=== PATIENT | male | born 1940 | race African-American/Black ===

== ENCOUNTER 2020-02-28 14:04 | Inpatient (IN) | payer MEDICARE, MEDICAID ==
[~2020-02-28] VITALS: Ht 172.7 cm; Wt 68.1 kg
[2020-02-28 14:10] VITALS: BP 110/60
--- NOTE | 2020-02-28 14:10 | NUR ---
ED Nurse Note: pt brought in by ambulance from [facility] due to failure to thrive, decreased PO intake, and general weakness. pt is alert x1.
[2020-02-28] MEDS ORDERED: VANCOMYCIN500 MG/100 IV (14:15)
[2020-02-28] MEDS ORDERED: MILK OF MA400 MG/51 ORAL (14:15)
[2020-02-28] MEDS ORDERED: FLEET ENEMA133 ML RECTAL (14:15)
[2020-02-28] MEDS ORDERED: BISACODYL5 MG RECTAL (14:15)
--- NOTE | 2020-02-28 14:39 | Emergency Room Report ---
History of Present Illness General Chief Complaint: Generalized Weakness Source: Patient, Medical Record Present Illness HPI Disclaimer: Please note that this report is being documented using [employer] technology. This can lead to erroneous entry secondary to incorrect interpretation by the dictating instrument. HPI: 79-year-old male history of hypertension, pneumonia, UTI presented from residential facility due to generalized weakness and failure to thrive. Per patient's primary care doctor patient has not been eating well and been declining over the past week. He did have coronavirus testing on February 17 which was negative. He denies any pain nausea vomiting or diarrhea but does report poor appetite. 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 PMH: Hypertension, pneumonia, UTI PSH: Reviewed Social Hx: Currently lives in a residential facility. Allergies: Coded Allergies: No Known Allergies (Unverified , 02/28/20) COVID-19 Screening Contact w/high risk pt: No Recent Travel to affected area: No Experienced COVID-19 symptoms?: No Nursing Documentation-PMH Past Medical History: No History, Except For Hx Cardiac Problems: Yes - Sepsis, PNA, UTI, ESBL Hx Hypertension: Yes Review of Systems All Other Systems: negative except mentioned in HPI Physical Exam Vital Signs Date Time Temp Pulse Resp B/P (MAP) Pulse Ox O2 Delivery O2 Flow Rate FiO2 02/28/20 14:00 98.6 95 18 103/55 (71) 92 Room Air Sp02 EP Interpretation: reviewed, other - Low normal General Appearance: no apparent distress, thin Head: normocephalic, atraumatic Eyes: bilateral eye PERRL, bilateral eye EOMI ENT: hearing grossly normal, moist mucus membranes Neck: full range of motion, supple Respiratory: lungs clear, normal breath sounds, no rhonchi, no respiratory distress, no retraction, no wheezing Cardiovascular #1: normal peripheral pulses, regular rate, rhythm, no murmur Gastrointestinal: non tender, soft, non-distended, no guarding Musculoskeletal: other - Bilateral lower extremities contracted. Wound noted to first toe of right foot Neurologic: alert, oriented x3, no focal defects Skin: normal color, warm/dry Medical Decision Making Diagnostic Impression: Primary Impression: Right lower lobe pneumonia Additional Impressions: UTI (urinary tract infection) Failure to thrive ER Course MDM: 79-year-old male history of MRSA endocarditis pneumonia and UTI presented with generalized weakness and poor p.o. intake. differential diagnosis: Recurrent pneumonia UTI bacteremia dehydration failure to thrive Clinical course Patient placed on stretcher. 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 After initial history and physical I ordered labs, chest x-ray. Chest x-ray did demonstrate evidence of right lower lobe pneumonia. Laboratory studies showed mild leukocytosis. Urinalysis with WBCs and bacteria. Broad-spectrum antibiotics were given. I discussed the case with Dr. Chu, patient's primary doctor who will admit patient to the hospital. Labs -mild leukocytosis, urinalysis consistent with UTI On reevaluation: Patient remained in no acute distress but generally weak Laboratory Tests Test 02/28/20 14:40 02/28/20 14:49 Urine Color Pale yellow Urine Appearance Slightly cloudy Urine pH 5 (4.5-8.0) Urine Specific [place] 1.015 (1.005-1.035) Urine Protein 1+ (NEGATIVE) H Urine Glucose (UA) Negative (NEGATIVE) Urine Ketones 1+ (NEGATIVE) H Urine Blood 2+ (NEGATIVE) H Urine Nitrite Negative (NEGATIVE) Urine Bilirubin Negative (NEGATIVE) Urine Urobilinogen Normal MG/DL (0.0-1.0) Urine Leukocyte Esterase 2+ (NEGATIVE) H Urine RBC 2-4 /HPF (0 - 0) H Urine WBC 10-15 /HPF (0 - 0) H Urine Squamous Epithelial Cells Few /LPF (NONE/OCC) Urine Bacteria Many /HPF (NONE) H White Blood Count 12.9 K/UL (4.8-10.8) H Red Blood Count 3.46 M/UL (4.70-6.10) L Hemoglobin 7.3 G/DL (14.2-18.0) L Hematocrit 23.9 % (42.0-52.0) L Mean Corpuscular Volume 69 FL (80-99) L Mean Corpuscular Hemoglobin 21.2 PG (27.0-31.0) L Mean Corpuscular Hemoglobin Concent 30.6 G/DL (32.0-36.0) L Red Cell Distribution Width 19.3 % (11.6-14.8) H Platelet Count 215 K/UL (150-450) Mean Platelet Volume 5.2 FL (6.5-10.1) L Neutrophils (%) (Auto) % (45.0-75.0) Lymphocytes (%) (Auto) % (20.0-45.0) Monocytes (%) (Auto) % (1.0-10.0) Eosinophils (%) (Auto) % (0.0-3.0) Basophils (%) (Auto) % (0.0-2.0) Differential Total Cells Counted 100 Neutrophils % (Manual) 86 % (45-75) H Lymphocytes % (Manual) 8 % (20-45) L Monocytes % (Manual) 6 % (1-10) Eosinophils % (Manual) 0 % (0-3) Basophils % (Manual) 0 % (0-2) Band Neutrophils 0 % (0-8) Platelet Estimate Adequate Platelet Morphology Normal Polychromasia 1+ Hypochromasia 2+ Anisocytosis 2+ Microcytosis 3+ Sodium Level 139 MMOL/L (136-145) Potassium Level 4.6 MMOL/L (3.5-5.1) Chloride Level 106 MMOL/L (98-107) Carbon Dioxide Level 23 MMOL/L (21-32) Anion Gap 11 mmol/L (5-15) Blood Urea Nitrogen 29 mg/dL (7-18) H Creatinine 1.4 MG/DL (0.55-1.30) H Estimated Glomerular Filtration Rate 59.1 mL/min (>60) Glucose Level 65 MG/DL (74-106) L Lactic Acid Level 0.60 mmol/L (0.4-2.0) Calcium Level 9.2 MG/DL (8.5-10.1) Total Bilirubin 0.5 MG/DL (0.2-1.0) Aspartate Amino Transferase (AST) 16 U/L (15-37) Alanine Aminotransferase (ALT) 10 U/L (12-78) L Alkaline Phosphatase 52 U/L (46-116) Total Creatine Kinase 35 U/L (26-308) Creatine Kinase MB 1.1 NG/ML (0.0-3.6) Creatine Kinase MB Relative Index 3.1 Troponin I 0.000 ng/mL (0.000-0.056) Total Protein 6.6 G/DL (6.4-8.2) Albumin 1.9 G/DL (3.4-5.0) L Globulin 4.7 g/dL Albumin/Globulin Ratio 0.4 (1.0-2.7) L EKG Diagnostic Results EP Interpretation: yes Rate: normal Rhythm: NSR ST Segments: no acute changes Other Impression Left axis deviation, right bundle branch block, first-degree AV block, abnormal EKG Chest X-Ray Diagnostic Results Chest X-Ray Diagnostic Results : Chest X-Ray Ordered: Yes # of Views/Limited/Complete: 1 View Indication: Shortness of Breath EP Interpretation: Yes Interpretation: no pneumothorax, other Impression: Other - Right lower lobe infiltrate Electronically Signed by: Aydin Pandya MD Last Vital Signs Date Time Temp Pulse Resp B/P (MAP) Pulse Ox O2 Delivery O2 Flow Rate FiO2 02/28/20 14:00 98.6 95 18 103/55 (71) 92 Room Air Status: unchanged Disposition: ADMITTED INPATIENT Condition: Serious Aydin Pandya M.D. Feb 28, 2020 14:39
--- NOTE | 2020-02-28 14:44 | NUR ---
ED Nurse Note: blood sample sent down to lab
[2020-02-28 15:19] LABS: APPEARANCE,URINE SLIGHTLY CLOUDY; BILIRUBIN, URINE NEGATIVE (NEGATIVE); COLOR,URINE PALE YELLOW; GLUCOSE, URINE (UA) NEGATIVE (NEGATIVE); KETONES,URINE 1+ (NEGATIVE); LEUKOCYTE ESTERASE ,URINE 2+ (NEGATIVE); NITRITE,URINE NEGATIVE (NEGATIVE); PH,URINE 5 (4.5-8.0); PROTEIN,URINE 1+ (NEGATIVE); UROBILINOGEN,URINE NORMAL MG/DL (0.0-1.0)
[2020-02-28 15:22] LABS: HEMATOCRIT 23.9 % (42.0-52.0); HEMOGLOBIN 7.3 G/DL (14.2-18.0); MEAN CORPUSCULAR VOLUME 69 FL (80-99); PLATELET COUNT 215 K/UL (150-450); RED BLOOD COUNT 3.46 M/UL (4.70-6.10); RED CELL DISTRIBUTION WIDTH 19.3 % (11.6-14.8); WHITE BLOOD COUNT 12.9 K/UL (4.8-10.8)
[2020-02-28 15:30] LABS: ANION GAP 11 mmol/L (5-15); BLOOD UREA NITROGEN 29 mg/dL (7-18); CALCIUM 9.2 MG/DL (8.5-10.1); CARBON DIOXIDE 23 MMOL/L (21-32); CHLORIDE 106 MMOL/L (98-107); CREATININE 1.4 MG/DL (0.55-1.30); POTASSIUM 4.6 MMOL/L (3.5-5.1); SODIUM 139 MMOL/L (136-145)
[2020-02-28 15:45] LABS: ALANINE AMINOTRANSFERASE 10 U/L (12-78); ALBUMIN 1.9 G/DL (3.4-5.0); ALBUMIN/GLOBULIN RATIO 0.4 (1.0-2.7); ALKALINE PHOSPHATASE 52 U/L (46-116); ASPARTATE AMINO TRANSFERASE 16 U/L (15-37); BILIRUBIN,TOTAL 0.5 MG/DL (0.2-1.0); CKMB 1.1 NG/ML (0.0-3.6); CREATINE KINASE 35 U/L (26-308)
[2020-02-28 15:53] VITALS: BP 116/67
--- NOTE | 2020-02-28 15:53 | NUR ---
ED Nurse Note: pt in bed resting, awake, no acute distress is noted. VSS as documented.
--- NOTE | 2020-02-28 15:58 | Diagnostic Imaging Report ---
Indication: Shortness of breath Technique: One view of the chest Comparison: none Findings: There is a moderate size right pleural effusion. Opacity at the right lung base may be secondary to the pleural fluid, but infiltrate also likely. The heart is enlarged. There is a left chest pacemaker. The left lung and pleural space are clear. The right upper lobe is clear. Impression: Right basilar moderate pleural effusion and likely parenchymal consolidation Cardiomegaly Pacemaker
[2020-02-28] MEDS ORDERED: Vancomycin 1 GM in NS 275 ML IVPB ONE (16:30)
[2020-02-28] MEDS ORDERED: Piperacillin/Tazobactam 3.375 GM in NS 110 ML IVPB ONE (16:30)
--- NOTE | 2020-02-28 16:59 | NUR ---
ED Nurse Note: pt verbalized hungry, sandwich given
[2020-02-28] MEDS: D5 1/2NS w/KCL 10meq 1,000 ML IV SCH (17:00)
[2020-02-28] MEDS ORDERED: Potassium Chloride 10 MEQ in D5 1/2NS 1,000 ML IV SCH (17:00)
[2020-02-28] MEDS ORDERED: Morphine Sulfate 2mg/ml Inj(IV/IM USE ONLY) IVP PRN (17:45)
[2020-02-28] MEDS ORDERED: Fleet's Enema 133ml RECTAL PRN (17:45)
[2020-02-28] MEDS ORDERED: Milk of Magnesia 30ml Ud ORAL PRN (17:45)
[2020-02-28] MEDS ORDERED: Bisacodyl EC 5mg tab ORAL PRN ×2 (17:45→18:00)
--- NOTE | 2020-02-28 18:15 | History and Physical ---
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 He was to complete IV Vancomycin until for a 6 week course. In the past week he has been developing fatigue, poor appetite and failure to thrieve. Today, he was referred to the ER at [facility] and was found to have mild leukocytosis of 12.9 K , anemia Hb 7.3, CXR with R LL infiltrate and admission to the Hospital was requested. The patient was seen in the ED, in no acute distress. He is unhappy to be here and feels hungry yet he does not want to eat a sandwich that was brought to him because it is cold. He denies fever, chills, cough, sob, endorses abdominal discomfort and weakness. IV Vancomycin has been given at [facility] per Pharmacy recommendations. Allergies: Coded Allergies: No Known Allergies (Unverified , 02/28/20) COVID-19 Screening Contact w/high risk pt: No Recent Travel to affected area: No Experienced COVID-19 symptoms?: No Medication History Scheduled Vancomycin Hcl/D5w (Vancomycin-D5w 500 Mg/100 Ml), Unknown Dose IV DAILY, ( Reported) Scheduled PRN Bisacodyl* (Dulcolax*), 10 MG RECTAL DAILY PRN for Constipation, (Reported) Magnesium Hydroxide* (Milk Of Magnesia*), 30 ML ORAL DAILY PRN for Constipation, (Reported) Na Phos,M-B/Na Phos,Di-Ba* (Fleet Enema*), 133 ML RECTAL DAILY PRN for Constipation, (Reported) Patient History Healthcare decision maker Resuscitation status Advanced Directive on File Review of Systems All Other Systems: negative except mentioned in HPI Physical Exam General Appearance: moderate distress Lines, tubes and drains: peripheral HEENT: normocephalic, atraumatic Neck: non-tender Respiratory/Chest: lungs clear Cardiovascular/Chest: normal rate Abdomen: normal bowel sounds, hyperactive bowel sounds Extremities: normal range of motion, other - bilateral lower extremity wounds 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 Last 24 Hour Vital Signs Date Time Temp Pulse Resp B/P (MAP) Pulse Ox O2 Delivery O2 Flow Rate FiO2 02/28/20 15:53 99.2 86 16 116/67 96 Room Air 02/28/20 14:10 90 18 Room Air 02/28/20 14:10 99.0 90 18 110/60 94 Room Air 02/28/20 14:00 98.6 95 18 103/55 (71) 92 Room Air Laboratory Tests Test 02/28/20 14:40 02/28/20 14:49 Urine Color Pale yellow Urine Appearance Slightly cloudy Urine pH 5 (4.5-8.0) Urine Specific [place] 1.015 (1.005-1.035) Urine Protein 1+ (NEGATIVE) H Urine Glucose (UA) Negative (NEGATIVE) Urine Ketones 1+ (NEGATIVE) H Urine Blood 2+ (NEGATIVE) H Urine Nitrite Negative (NEGATIVE) Urine Bilirubin Negative (NEGATIVE) Urine Urobilinogen Normal MG/DL (0.0-1.0) Urine Leukocyte Esterase 2+ (NEGATIVE) H Urine RBC 2-4 /HPF (0 - 0) H Urine WBC 10-15 /HPF (0 - 0) H Urine Squamous Epithelial Cells Few /LPF (NONE/OCC) Urine Bacteria Many /HPF (NONE) H White Blood Count 12.9 K/UL (4.8-10.8) H Red Blood Count 3.46 M/UL (4.70-6.10) L Hemoglobin 7.3 G/DL (14.2-18.0) L Hematocrit 23.9 % (42.0-52.0) L Mean Corpuscular Volume 69 FL (80-99) L Mean Corpuscular Hemoglobin 21.2 PG (27.0-31.0) L Mean Corpuscular Hemoglobin Concent 30.6 G/DL (32.0-36.0) L Red Cell Distribution Width 19.3 % (11.6-14.8) H Platelet Count 215 K/UL (150-450) Mean Platelet Volume 5.2 FL (6.5-10.1) L Neutrophils (%) (Auto) % (45.0-75.0) Lymphocytes (%) (Auto) % (20.0-45.0) Monocytes (%) (Auto) % (1.0-10.0) Eosinophils (%) (Auto) % (0.0-3.0) Basophils (%) (Auto) % (0.0-2.0) Differential Total Cells Counted 100 Neutrophils % (Manual) 86 % (45-75) H Lymphocytes % (Manual) 8 % (20-45) L Monocytes % (Manual) 6 % (1-10) Eosinophils % (Manual) 0 % (0-3) Basophils % (Manual) 0 % (0-2) Band Neutrophils 0 % (0-8) Platelet Estimate Adequate Platelet Morphology Normal Polychromasia 1+ Hypochromasia 2+ Anisocytosis 2+ Microcytosis 3+ Sodium Level 139 MMOL/L (136-145) Potassium Level 4.6 MMOL/L (3.5-5.1) Chloride Level 106 MMOL/L (98-107) Carbon Dioxide Level 23 MMOL/L (21-32) Anion Gap 11 mmol/L (5-15) Blood Urea Nitrogen 29 mg/dL (7-18) H Creatinine 1.4 MG/DL (0.55-1.30) H Estimat Glomerular Filtration Rate 59.1 mL/min (>60) Glucose Level 65 MG/DL (74-106) L Lactic Acid Level 0.60 mmol/L (0.4-2.0) Calcium Level 9.2 MG/DL (8.5-10.1) Total Bilirubin 0.5 MG/DL (0.2-1.0) Aspartate Amino Transf (AST/SGOT) 16 U/L (15-37) Alanine Aminotransferase (ALT/SGPT) 10 U/L (12-78) L Alkaline Phosphatase 52 U/L (46-116) Total Creatine Kinase 35 U/L (26-308) Creatine Kinase MB 1.1 NG/ML (0.0-3.6) Creatine Kinase MB Relative Index 3.1 Troponin I 0.000 ng/mL (0.000-0.056) Total Protein 6.6 G/DL (6.4-8.2) Albumin 1.9 G/DL (3.4-5.0) L Globulin 4.7 g/dL Albumin/Globulin Ratio 0.4 (1.0-2.7) L Height (Feet): 5 Height (Inches): 8.00 Weight (Pounds): 155 Medications Current Medications Medications (Trade) Dose Ordered Sig/Ramiro Route PRN Reason Start Time Stop Time Status Last Admin Dose Admin Dextrose/ Electrolytes 1,000 ml @ 100 mls/hr Q10H IV 02/28/20 17:00 03/29/20 16:59 02/28/20 17:00 Vancomycin HCl 1 gm/Sodium Chloride 275 ml @ 183.708 mls/hr ONCE ONCE IVPB 02/28/20 16:30 02/28/20 17:59 02/28/20 16:48 Assessment/Plan Status Narrative 79 y/o M admitted from SNF with prior dx of bacteremia MRSA Endocarditis and on active treatment with IV Vancomycin until 02/28 # SIRS with elevated WBC, RR Pneumonia Cover with IV Vancomycin and Zosyn as patient is care home resident, HCAP Supportive care Monitor CXR as needed # MRSA Aortic valve endocarditis Completing IV Vancomycin until 02/28 Continue Vancomycin and TTE will be ordered to evaluate vegetation # s/p PPM Stable EKG reviewed # Hypertension Will resume Amlodipine # HLD Resume Atorvastatin # Leg wound Wound care consult # Moderate protein caloric malnutrition Albumin 1.9 RD consultation # IV Peripheral # Tubes Odonnell # Precautions Fall # DVT/GI ppx # FULL CODE Jeffry Chu MD Feb 28, 2020 18:15
[2020-02-28 18:26] VITALS: BP 113/62
--- NOTE | 2020-02-28 18:59 | NUR ---
HAND-OFF: Report given to TERRI Cantor. Endorsed plan of care.
--- NOTE | 2020-02-28 19:00 | NUR ---
ED Nurse Note: Received report from TERRI Bojorquez. Patient in bed resting, no acute distress noted.
--- NOTE | 2020-02-28 19:40 | NUR ---
TRANSFER TO FLOOR: Patient transferred to med surg as ordered, per ERMD. Report given to TERRI Rasmussen. Patient transported via gurney accompanied by BETTINA echevarria and RN in stable condition.
--- NOTE | 2020-02-28 19:40 | NUR ---
NURSE NOTES: Received patient from ED, transferred via gurney, patient is awake, alert x1/2, disoriented and confused, IV site is clean and intact, patient has a Odonnell catheter 16 FR inserted prior to admission, patient has multiple wounds, wound care consult is requested. Oriented to the room, call light is within reach, fall precautions are implemented, bed alarm is on, bed is locked. Will continue to monitor for comfort and safety.
--- NOTE | 2020-02-28 21:01 | NUR ---
HAND-OFF: Report given to Marie MURRAY.
--- NOTE | 2020-02-28 21:30 | NUR ---
NURSE NOTES: Received patient on bed, awake and verbally responsive. PUI-COVId 19. alert & oriented 1/2. confused. no sob. with iv lines on the left forearm, saline lock and left ac running d5 1/2 ns +10 meq kcl. with santiago catheter draining well. denies any pain or discomfort. reiterated to use call light for safety. bed locked justin in lowest position. call light and light button within easy reach. observe isolation precautions. will continue plan of care.
[2020-02-28] MEDS: Enoxaparin 40mg Inj SUBQ SCH (21:55)
[2020-02-29] VITALS: BP 118/72
[2020-02-29] MEDS ORDERED: Piperacillin/Tazobactam 2.25 GM in NS 110 ML IVPB SCH (00:30)
[2020-02-29] MEDS: Zoysn 3.37gm in NS 100ML IVPB SCH ×4 (01:01→22:43)
[2020-02-29] MEDS: D5 1/2NS w/KCL 10meq 1,000 ML IV SCH (02:52)
[2020-02-29 04:00] VITALS: BP 115/68
[2020-02-29 04:52] LABS: HEMATOCRIT 21.6 % (42.0-52.0); MEAN CORPUSCULAR VOLUME 69 FL (80-99); PLATELET COUNT 188 K/UL (150-450); RED BLOOD COUNT 3.14 M/UL (4.70-6.10); RED CELL DISTRIBUTION WIDTH 17.2 % (11.6-14.8); WHITE BLOOD COUNT 10.9 K/UL (4.8-10.8)
[2020-02-29 05:07] LABS: ALANINE AMINOTRANSFERASE 9 U/L (12-78); ALBUMIN 1.7 G/DL (3.4-5.0); ALBUMIN/GLOBULIN RATIO 0.4 (1.0-2.7); ALKALINE PHOSPHATASE 48 U/L (46-116); ANION GAP 11 mmol/L (5-15); ASPARTATE AMINO TRANSFERASE 15 U/L (15-37); BILIRUBIN,TOTAL 0.4 MG/DL (0.2-1.0); BLOOD UREA NITROGEN 28 mg/dL (7-18); CALCIUM 8.7 MG/DL (8.5-10.1); CARBON DIOXIDE 22 MMOL/L (21-32); CHLORIDE 106 MMOL/L (98-107); CREATININE 1.5 MG/DL (0.55-1.30); POTASSIUM 4.2 MMOL/L (3.5-5.1); SODIUM 139 MMOL/L (136-145)
[2020-02-29 05:17] LABS: HEMOGLOBIN 6.8 G/DL (14.2-18.0)
--- NOTE | 2020-02-29 05:30 | NUR ---
NURSE NOTES: inform md montaño regarding the hemoglobin level of 6.8. received an order from for type and cross 1 unit prbc charge nurse made aware.
--- NOTE | 2020-02-29 05:55 | NUR ---
NURSE NOTES: called the son carson montoya to get consent. per carson to call her sister instead. called the sister (stephon) at [phone], went through voicemail. awaiting for call back. charge nurse made aware
--- NOTE | 2020-02-29 06:43 | NUR ---
NURSE NOTES: Called back stephon waller (daughter) to get consent. per stephon "to push through with the order from md" thus she's giving consent for the blood transfusion and was verified by the RN monica salinas. charge nurse made aware.
--- NOTE | 2020-02-29 06:56 | NUR ---
NURSE NOTES: informed dr. willis regarding the wounds of the patients and received an order to put dr. willis as consult. charge nurse made aware.
--- NOTE | 2020-02-29 07:43 | NUR ---
CASE MANAGEMENT: INITIAL REVIEW 79 YO M BIBA FROM [facility] CC: GEN WEAKNESS. PMHx: Hypertension, pneumonia, UTI, Pacemaker Si:PNA. UTI. T 98.6 HR 95 RR 18 B/P 103/55 SATS 92% ON RA LABS: WBC 12.9 HGB 7.3 HCT 23.9 BUN 29 CR 1.4 GLU 65 ALT 10 IS: NS BOLUS X1 VANCO IV X1 ZOSYN IV X1 KCL IV X1 EKG Left axis deviation, right bundle branch block, first-degree AV block, abnormal EKG CXR Impression: Right basilar moderate pleural effusion and likely parenchymal consolidation Cardiomegaly PATIENT ADMITTED TO MED/SURG 02/28/2020 @ 1710 DCP: SNF PLAN OF CARE: transfuse pt eval covid eval cxr
--- NOTE | 2020-02-29 07:44 | NUR ---
HAND-OFF: Report given to TERRI LIAO.
--- NOTE | 2020-02-29 07:45 | NUR ---
NURSE NOTES: Received patient in bed asleep. No SOB or acute distress. IV lines intact and patent. Wound dressings intact. Odonnell catheter intact, draining yellow colored urine. HOB elevated. Bed locked in lowest position. Call light within reach. Will continue plan of care.
[2020-02-29 08:00] VITALS: BP 102/65
[2020-02-29] MEDS ORDERED: D5 1/2NS 1,000 ML IV SCH (09:00)
--- NOTE | 2020-02-29 09:25 | NUR ---
*-* INSURANCE *-* ALL CLINICALS AND REVIEWS HAVE BEEN FAXED TO: TERESSA MARY:PARI P: [phone] F: [phone] NICHOLAS Orders: [phone]
--- NOTE | 2020-02-29 11:30 | NUR ---
NURSE NOTES: 1 unit PRBC started. cosigned with Tha MURRAY. Will monitor for any adverse reactions.
--- NOTE | 2020-02-29 11:36 | Consultation ---
History of Present Illness General Date patient seen: Feb 29, 2020 Chief Complaint: Generalized Weakness Present Illness HPI 79-year-old male with history of hypertension, pneumonia, UTI who presented from [facility] facility for evaluation of generalized weakness and failure to thrive. Per report, patient has not been eating well and been declining over the past week. He did have coronavirus testing on February 17 which was negative. He denies any pain nausea vomiting or diarrhea but does report poor appetite. 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 on admission noted to have abnormal labs and decubitus skin ulcers requiring care along with malnutrition. surgery called to evaluate and assist with care. Allergies: Coded Allergies: No Known Allergies (Unverified , 02/28/20) Medication History Scheduled Vancomycin Hcl/D5w (Vancomycin-D5w 500 Mg/100 Ml), Unknown Dose IV DAILY, ( Reported) Scheduled PRN Bisacodyl* (Dulcolax*), 10 MG RECTAL DAILY PRN for Constipation, (Reported) Magnesium Hydroxide* (Milk Of Magnesia*), 30 ML ORAL DAILY PRN for Constipation, (Reported) Na Phos,M-B/Na Phos,Di-Ba* (Fleet Enema*), 133 ML RECTAL DAILY PRN for Constipation, (Reported) Patient History Limited by: medical condition History Provided By: Medical Record, PMD Healthcare decision maker N Resuscitation status Full Code Advanced Directive on File Yes Past Medical/Surgical History Past Medical/Surgical History: (1) Right lower lobe pneumonia (2) Failure to thrive (3) UTI (urinary tract infection) (4) Decubitus skin ulcer Review of Systems Constitutional: Reports: see HPI, malaise, weakness Eye: Denies: no symptoms, see HPI, eye pain, blurred vision, tearing, double vision, nose pain, nose congestion, acuity changes, discharge, other ENT: Denies: no symptoms, see HPI, ear pain, ear discharge, nose pain, nose congestion, throat pain, throat swelling, mouth pain, hearing loss, nasal discharge, other Respiratory: Denies: no symptoms, see HPI, cough, orthopnea, shortness of breath, stridor, wheezing, MCMILLAN, sputum, other Cardiovascular: Denies: no symptoms, see HPI, chest pain, edema, palpitations, syncope, PND, other Gastrointestinal: Reports: constipation, nausea Genitourinary: Denies: no symptoms, see HPI, discharge, dysuria, frequency, hematuria, pain, retention, incontinence, urgency, vag bleed/dc, other Musculoskeletal: Reports: joint pain, muscle pain Skin: Denies: no symptoms, see HPI, rash, change in color, change in hair/nails , dryness, lesions, other Psychiatric: Denies: no symptoms, see HPI, prior hx, anxiety, depressed feelings, emotional problems, SI, HI, hallucinations, other Neurological: Denies: no symptoms, see HPI, headache, numbness, paresthesia, seizure, tingling, tremors, focal weakness, syncope, dizziness, other Endocrine: Denies: no symptoms, see HPI, excessive sweating, flushing, intolerance to temperature, increased thirst, increased urine, unexplained weight loss, other Hematologic/Lymphatic: Denies: no symptoms, see HPI, anemia, blood clots, easy bleeding, easy bruising, swollen glands, diathesis, other All Other Systems: negative except mentioned in HPI Physical Exam General Appearance: no apparent distress Lines, tubes and drains: peripheral HEENT: mucous membranes moist Neck: normal inspection Respiratory/Chest: normal breath sounds, no respiratory distress, no accessory muscle use Cardiovascular/Chest: normal peripheral pulses, regular rhythm Abdomen: normal bowel sounds, non tender, soft, no organomegaly, no mass Extremities: normal inspection Skin Exam: warm/dry Neurologic: alert, responsive Last 24 Hour Vital Signs Date Time Temp Pulse Resp B/P (MAP) Pulse Ox O2 Delivery O2 Flow Rate FiO2 02/29/20 08:00 97.8 80 20 102/65 (77) 96 02/29/20 04:00 97.9 83 20 115/68 (84) 97 02/29/20 00:00 98.9 86 19 118/72 (87) 96 02/28/20 21:00 80 104/63 02/28/20 21:00 Room Air 02/28/20 20:11 Room Air 02/28/20 19:40 98.3 80 18 115/68 98 Room Air 02/28/20 18:26 98.6 83 19 113/62 96 Room Air 02/28/20 15:53 99.2 86 16 116/67 96 Room Air 02/28/20 14:10 90 18 Room Air 02/28/20 14:10 99.0 90 18 110/60 94 Room Air 02/28/20 14:00 98.6 95 18 103/55 (71) 92 Room Air Intake and Output 02/28/20 02/29/20 19:00 07:00 Intake Total 1393.708 ml Output Total 750 ml Balance 1393.708 ml -750 ml Intake IV Total 1393.708 ml Output Urine Total 750 ml # Voids 2 # Bowel Movements 3 Laboratory Tests Test 02/28/20 14:40 02/28/20 14:49 02/29/20 04:15 Urine Color Pale yellow Urine Appearance Slightly cloudy Urine pH 5 (4.5-8.0) Urine Specific [place] 1.015 (1.005-1.035) Urine Protein 1+ (NEGATIVE) H Urine Glucose (UA) Negative (NEGATIVE) Urine Ketones 1+ (NEGATIVE) H Urine Blood 2+ (NEGATIVE) H Urine Nitrite Negative (NEGATIVE) Urine Bilirubin Negative (NEGATIVE) Urine Urobilinogen Normal MG/DL (0.0-1.0) Urine Leukocyte Esterase 2+ (NEGATIVE) H Urine RBC 2-4 /HPF (0 - 0) H Urine WBC 10-15 /HPF (0 - 0) H Urine Squamous Epithelial Cells Few /LPF (NONE/OCC) Urine Bacteria Many /HPF (NONE) H White Blood Count 12.9 K/UL (4.8-10.8) H 10.9 K/UL (4.8-10.8) H Red Blood Count 3.46 M/UL (4.70-6.10) L 3.14 M/UL (4.70-6.10) L Hemoglobin 7.3 G/DL (14.2-18.0) L 6.8 G/DL (14.2-18.0) *L Hematocrit 23.9 % (42.0-52.0) L 21.6 % (42.0-52.0) L Mean Corpuscular Volume 69 FL (80-99) L 69 FL (80-99) L Mean Corpuscular Hemoglobin 21.2 PG (27.0-31.0) L 21.8 PG (27.0-31.0) L Mean Corpuscular Hemoglobin Concent 30.6 G/DL (32.0-36.0) L 31.7 G/DL (32.0-36.0) L Red Cell Distribution Width 19.3 % (11.6-14.8) H 17.2 % (11.6-14.8) H Platelet Count 215 K/UL (150-450) 188 K/UL (150-450) Mean Platelet Volume 5.2 FL (6.5-10.1) L 4.8 FL (6.5-10.1) L Neutrophils (%) (Auto) % (45.0-75.0) % (45.0-75.0) Lymphocytes (%) (Auto) % (20.0-45.0) % (20.0-45.0) Monocytes (%) (Auto) % (1.0-10.0) % (1.0-10.0) Eosinophils (%) (Auto) % (0.0-3.0) % (0.0-3.0) Basophils (%) (Auto) % (0.0-2.0) % (0.0-2.0) Differential Total Cells Counted 100 100 Neutrophils % (Manual) 86 % (45-75) H 89 % (45-75) H Lymphocytes % (Manual) 8 % (20-45) L 8 % (20-45) L Monocytes % (Manual) 6 % (1-10) 3 % (1-10) Eosinophils % (Manual) 0 % (0-3) 0 % (0-3) Basophils % (Manual) 0 % (0-2) 0 % (0-2) Band Neutrophils 0 % (0-8) 0 % (0-8) Platelet Estimate Adequate Adequate Platelet Morphology Normal Normal Polychromasia 1+ Hypochromasia 2+ 3+ Anisocytosis 2+ 2+ Microcytosis 3+ 3+ Sodium Level 139 MMOL/L (136-145) 139 MMOL/L (136-145) Potassium Level 4.6 MMOL/L (3.5-5.1) 4.2 MMOL/L (3.5-5.1) Chloride Level 106 MMOL/L (98-107) 106 MMOL/L (98-107) Carbon Dioxide Level 23 MMOL/L (21-32) 22 MMOL/L (21-32) Anion Gap 11 mmol/L (5-15) 11 mmol/L (5-15) Blood Urea Nitrogen 29 mg/dL (7-18) H 28 mg/dL (7-18) H Creatinine 1.4 MG/DL (0.55-1.30) H 1.5 MG/DL (0.55-1.30) H Estimat Glomerular Filtration Rate 59.1 mL/min (>60) 54.5 mL/min (>60) Glucose Level 65 MG/DL (74-106) L 89 MG/DL (74-106) Lactic Acid Level 0.60 mmol/L (0.4-2.0) Calcium Level 9.2 MG/DL (8.5-10.1) 8.7 MG/DL (8.5-10.1) Total Bilirubin 0.5 MG/DL (0.2-1.0) 0.4 MG/DL (0.2-1.0) Aspartate Amino Transf (AST/SGOT) 16 U/L (15-37) 15 U/L (15-37) Alanine Aminotransferase (ALT/SGPT) 10 U/L (12-78) L 9 U/L (12-78) L Alkaline Phosphatase 52 U/L (46-116) 48 U/L (46-116) Total Creatine Kinase 35 U/L (26-308) Creatine Kinase MB 1.1 NG/ML (0.0-3.6) Creatine Kinase MB Relative Index 3.1 Troponin I 0.000 ng/mL (0.000-0.056) Total Protein 6.6 G/DL (6.4-8.2) 6.3 G/DL (6.4-8.2) L Albumin 1.9 G/DL (3.4-5.0) L 1.7 G/DL (3.4-5.0) L Globulin 4.7 g/dL 4.6 g/dL Albumin/Globulin Ratio 0.4 (1.0-2.7) L 0.4 (1.0-2.7) L Magnesium Level 1.6 MG/DL (1.8-2.4) L Random Vancomycin Level 23.6 ug/mL Microbiology Date/Time Source Procedure Growth Status 02/28/20 15:00 Rectum Received Height (Feet): 5 Height (Inches): 8.00 Weight (Pounds): 155 Medications Current Medications Medications (Trade) Dose Ordered Sig/Ramiro Route PRN Reason Start Time Stop Time Status Last Admin Dose Admin Acetaminophen (Tylenol) 650 mg Q4H PRN ORAL Mild Pain (Pain Scale 1-3) 02/28/20 17:45 03/29/20 17:44 02/29/20 06:24 Bisacodyl (Dulcolax) 10 mg DAILYPRN PRN ORAL Constipation 02/28/20 18:00 05/28/20 17:44 Dextrose (Dextrose 50%) 25 ml Q30M PRN IV Hypoglycemia 02/28/20 17:45 05/28/20 17:44 Dextrose (Dextrose 50%) 50 ml Q30M PRN IV Hypoglycemia 02/28/20 17:45 05/28/20 17:44 Dextrose/ Electrolytes 1,000 ml @ 100 mls/hr Q10H IV 02/28/20 17:00 03/29/20 16:59 02/28/20 17:00 Dextrose/Sodium Chloride 1,000 ml @ 100 mls/hr DAILY IV 02/29/20 09:00 03/30/20 08:59 02/29/20 08:11 Enoxaparin Sodium (Lovenox) 40 mg Q24H SUBQ 02/28/20 21:00 05/28/20 20:59 02/28/20 21:55 Famotidine (Pepcid) 40 mg DAILY ORAL 02/29/20 09:00 05/29/20 08:59 02/29/20 08:10 Magnesium Hydroxide (Mom) 30 ml DAILYPRN PRN ORAL Constipation 02/28/20 17:45 03/29/20 17:44 Morphine Sulfate (Morphine Sulfate) 1 mg Q3H PRN IVP For Pain 02/28/20 17:45 03/06/20 17:44 Ondansetron HCl (Zofran) 4 mg Q6H PRN IVP Nausea & Vomiting 02/28/20 17:45 03/29/20 17:44 Piperacillin Sod/ Tazobactam Sod 3.375 gm/Sodium Chloride 110 ml @ 27.5 mls/hr Q8H IVPB 02/29/20 00:30 03/07/20 00:29 02/29/20 08:10 Sodium Phosphate (Fleet's Sodium Phosl Enema) 133 ml DAILYPRN PRN RECTAL Constipation 02/28/20 17:45 03/29/20 17:44 Vancomycin HCl (Vanco rx to dose) 1 ea DAILY PRN MISC Per rx protocol 02/28/20 17:45 03/29/20 17:44 Assessment/Plan Problem List: (1) Right lower lobe pneumonia Assessment & Plan: Findings: There is a moderate size right pleural effusion. Opacity at the right lung base may be secondary to the pleural fluid, but infiltrate also likely. The heart is enlarged. There is a left chest pacemaker. The left lung and pleural space are clear. The right upper lobe is clear. Impression: Right basilar moderate pleural effusion and likely parenchymal consolidation Cardiomegaly Pacemaker cont abx pending micro ICD Codes: J18.9 - Pneumonia, unspecified organism SNOMED: 646993990 (2) Failure to thrive Assessment & Plan: DAILY ESTIMATED NEEDS: Needs based on Wounds/ 70.5kg 25-30 kcals/kg 0661-7018 total kcals 1.25-2 g protein/kg 88-141 g total protein 25-30 mL/kg 0427-1715 total fluid mLs NUTRITION DIAGNOSIS: Increased kcal/prot/micronutrients needs R/T wound healing as evidenced by pt admitted w/ multiple advanced wounds, pending evaluation. CURRENT DIET:REGULAR PO DIET RECOMMENDATIONS: REGULAR/ texture as tolerated ADDITIONAL RECOMMENDATIONS: * Calibrated bedscale wt for accurate CBW * Consider Calorie Count x 48 hrs- FTT dx * Add Ensure Enlive BID for now, monitor need to increase * Wound healing: add MVI w/ mineral 1 tab QD, Vit C 500mg BID add ZnSO4 220mg QD x 10 days add David 1pkt BID SNOMED: 83009070 (3) UTI (urinary tract infection) ICD Codes: N39.0 - Urinary tract infection, site not specified SNOMED: 50544764 (4) Decubitus skin ulcer Assessment & Plan: Pt presented on admission with multiple pressure injuries. 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 100% slough at base of wound with marginal erythema along borders.` Unstageable pressure injury lateral R 1st metatarsal and L Hallux. Base of wound is 100% necrotic. Borders and periwound are callused. Unstageable Pressure Injury R heel. Base of wound is 100% necrotic with callused borders.In close proximity but extending into medial aspect of heel is a DTPI. Base of wound is purple with maroon borders. Dry cracked skin periwound. DTPI Plantar L heel. Unstageable pressure L lateral malleolus. 100% yellow slough with surrounding dry black borders. No exudate noted. Proximally to L malleolus Elongated area that is maroon in color. will likely plan for debridement of sacral wound as could use given how large and ill it is Tx.Plan: Cleanse Sacral wound with Dakin's 0.125% ashleigh. Apply Dakin's moistened Gauze to wound. Cover with Optifoam drsg Daily and prn. Apply Betadine to R foot wounds. Cover with ABD Pads and wrap with Kerlix Every 3 days and prn. Apply Betadine to L foot Wounds. Cover with ABD Pads and Wrap with Kerlix every 3 days and prn. APM/BHAVESH Mattress overlay. Reposition at least every 2hours or as tolerated. Off-load heels with Pillow. ICD Codes: L89.90 - Pressure ulcer of unspecified site, unspecified stage SNOMED: 495783693 Yao Mccarty Feb 29, 2020 11:36
--- NOTE | 2020-02-29 11:54 | NUR ---
RD ASSESSMENT & RECOMMENDATIONS SEE CARE ACTIVITY FOR COMPLETE ASSESSMENT DAILY ESTIMATED NEEDS: Needs based on Wounds/ 70.5kg 25-30 kcals/kg 4790-3284 total kcals 1.25-2 g protein/kg 88-141 g total protein 25-30 mL/kg 8822-7399 total fluid mLs NUTRITION DIAGNOSIS: Increased kcal/prot/micronutrients needs R/T wound healing as evidenced by pt admitted w/ multiple advanced wounds, pending evaluation. CURRENT DIET:REGULAR PO DIET RECOMMENDATIONS: REGULAR/ texture as tolerated ADDITIONAL RECOMMENDATIONS: * Calibrated bedscale wt for accurate CBW * Consider Calorie Count x 48 hrs- FTT dx * Add Ensure Enlive BID for now, monitor need to increase * Wound healing: add MVI w/ mineral 1 tab QD, Vit C 500mg BID add ZnSO4 220mg QD x 10 days add David 1pkt BID
[2020-02-29 12:00] VITALS: BP 111/67
--- NOTE | 2020-02-29 13:35 | NUR ---
NURSE NOTES:WOUND CARE NOTES:Pt presented on admission with multiple pressure injuries. Full thickness sacral pressure injury. 100% slough at base of wound with marginal erythema along borders.` Unstageable pressure injury lateral R 1st metatarsal and L Hallux. Base of wound is 100% necrotic. Borders and periwound are callused. Unstageable Pressure Injury R heel. Base of wound is 100% necrotic with callused borders.In close proximity but extending into medial aspect of heel is a DTPI. Base of wound is purple with maroon borders. Dry cracked skin periwound. DTPI Plantar L heel. Unstageable pressure L lateral malleolus. 100% yellow slough with surrounding dry black borders. No exudate noted. Proximally to L malleolus Elongated area that is maroon in colour. Tx.Plan: Cleanse Sacral wound with Dakin's 0.125% ashleigh. Apply Dakin's moistened Gauze to wound. Cover with Optifoam drsg Daily and prn. Apply Betadine to R foot wounds. Cover with ABD Pads and wrap with Kerlix Every 3 days and prn. Apply Betadine to L foot Wounds. Cover with ABD Pads and Wrap with Kerlix every 3 days and prn. APM/BHAVESH Mattress overlay. Reposition at least every 2hours or as tolerated. Off-load heels with Pillow.
--- NOTE | 2020-02-29 13:50 | NUR ---
*-* INSURANCE *-* ALL CLINICALS AND REVIEWS HAVE BEEN FAXD TO: [facility] NCM:[place]OO[place] P: [phone] F: [phone] (FAX CLINICALS HERE AND TO [facility] [phone]) Addendum: 02/29/20 at 1351 by JENN SMITH CM TERESSA MOLINA NCM:PARI P: [phone] F: [phone] [place] Orders: [phone]
--- NOTE | 2020-02-29 15:04 | General Progress Note ---
Assessment/Plan Status: unchanged Status Narrative 79 y/o M admitted from SNF with prior dx of bacteremia MRSA Endocarditis and on active treatment with IV Vancomycin until 02/28 # SIRS with elevated WBC, RR Pneumonia IV Vancomycin and Zosyn as patient is correction resident, HCAP Supportive care Monitor CXR as needed Covid 19 test ordered. # MRSA Aortic valve endocarditis Completing IV Vancomycin until 02/28 Continue Vancomycin and TTE will be ordered to evaluate vegetation # Acute on chronic anemia PRBC 1 unit today. B12, folate, Iron panel, FOBT ordered. # s/p PPM Stable EKG reviewed # Hypertension Will resume Amlodipine # HLD Resume Atorvastatin # Leg wound Wound care consult with general surgery appreciated. MVI with mineral, zinc, vitamin C, Ensure BID started. # Moderate protein caloric malnutrition Albumin 1.9 RD consultation appreciated. Calorie count 48 hr # IV Peripheral # Tubes Odonnell # Precautions Fall # DVT/GI ppx # FULL CODE Jeffry Chu MD Subjective Date patient seen: Feb 29, 2020 Time patient seen: 13:50 Allergies: Coded Allergies: No Known Allergies (Unverified , 02/28/20) All Systems: reviewed and negative except above Subjective Moderate PO intake. Feels a bit tired today. Getting PRBC one unit at this time. Objective Last 24 Hour Vital Signs Date Time Temp Pulse Resp B/P (MAP) Pulse Ox O2 Delivery O2 Flow Rate FiO2 02/29/20 12:00 97.8 83 19 111/67 (82) 96 02/29/20 09:00 Room Air 02/29/20 08:00 97.8 80 20 102/65 (77) 96 02/29/20 04:00 97.9 83 20 115/68 (84) 97 02/29/20 00:00 98.9 86 19 118/72 (87) 96 02/28/20 21:00 80 104/63 02/28/20 21:00 Room Air 02/28/20 20:11 Room Air 02/28/20 19:40 98.3 80 18 115/68 98 Room Air 02/28/20 18:26 98.6 83 19 113/62 96 Room Air 02/28/20 15:53 99.2 86 16 116/67 96 Room Air Intake and Output 02/28/20 02/29/20 19:00 07:00 Intake Total 1393.708 ml Output Total 750 ml Balance 1393.708 ml -750 ml Intake IV Total 1393.708 ml Output Urine Total 750 ml # Voids 2 # Bowel Movements 3 Laboratory Tests 02/29/20 04:15: White Blood Count 10.9H, Red Blood Count 3.14L, Hemoglobin 6.8*L, Hematocrit 21.6L, Mean Corpuscular Volume 69L, Mean Corpuscular Hemoglobin 21.8L, Mean Corpuscular Hemoglobin Concent 31.7L, Red Cell Distribution Width 17.2H, Platelet Count 188, Mean Platelet Volume 4.8L, Neutrophils (%) (Auto) , Lymphocytes (%) (Auto) , Monocytes (%) (Auto) , Eosinophils (%) (Auto) , Basophils (%) (Auto) , Differential Total Cells Counted 100, Neutrophils % ( Manual) 89H, Lymphocytes % (Manual) 8L, Monocytes % (Manual) 3, Eosinophils % ( Manual) 0, Basophils % (Manual) 0, Band Neutrophils 0, Platelet Estimate Adequate, Platelet Morphology Normal, Hypochromasia 3+, Anisocytosis 2+, Microcytosis 3+, Sodium Level 139, Potassium Level 4.2, Chloride Level 106, Carbon Dioxide Level 22, Anion Gap 11, Blood Urea Nitrogen 28H, Creatinine 1.5H , Estimat Glomerular Filtration Rate 54.5, Glucose Level 89, Calcium Level 8.7, Magnesium Level 1.6L, Iron Level [Pending], Unsaturated Iron Binding [Pending], Total Bilirubin 0.4, Aspartate Amino Transf (AST/SGOT) 15, Alanine Aminotransferase (ALT/SGPT) 9L, Alkaline Phosphatase 48, Total Protein 6.3L, Albumin 1.7L, Globulin 4.6, Albumin/Globulin Ratio 0.4L, Vitamin B12 Level [ Pending], Folate [Pending], Random Vancomycin Level 23.6 Height (Feet): 5 Height (Inches): 8.00 Weight (Pounds): 155 General Appearance: WD/WN EENT: PERRL/EOMI Neck: non-tender Cardiovascular: normal rate Respiratory/Chest: lungs clear Abdomen: non tender Extremities: normal range of motion Edema: other - lower extremity wounds noted. non bleeding. 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
--- NOTE | 2020-02-29 15:28 | NUR ---
P.T Note: P.T evaluation completed and tx initiated. Please refer to P.T evaluation for current functional status. Pt is alert, Oriented to self/person but not to time and follows and simple commands. Pt denied c/o pain c/o and agreeable to participate in P.T evaluation/tx. Pt is generally weak and poorly deconditioned. MMT on BUE are grossly 2+/5 and BLE: grossly 2-/5. Pt too weak to engage in Bed mobilities. Pt needed MAX A X 1 to turn/roll towards L/R side and complete supine to/from sitting. Pt unable to stand and ambulate at this time. Pt was able to sit at the EOB with BUE holding onto to bed rails x 5 mins. Pt will benefit from skilled P.T services to increase his strength and activity tolerance to increase his mobility independence during stay. Recommend return to SNF for further rehab intervention at [place]. Thank you for this referral.
[2020-02-29 15:37] LABS: % IRON SATURATION 10 % (15-50); IRON 12 ug/dL (50-175); TOTAL IRON BINDING CAPACITY 125 ug/dL (250-450)
[2020-02-29 16:00] VITALS: BP 113/71
--- NOTE | 2020-02-29 16:05 | NUR ---
NURSE NOTES: Spoke to regarding patient and change primary MD to Feliciano Kraus. Order noted and carried out.
--- NOTE | 2020-02-29 17:10 | NUR ---
NURSE NOTES: 1 unit PRBC consumed.
[2020-02-29] MEDS: D51/2NS 1000ml IV SCH (18:28)
[2020-02-29] MEDS: Ascorbic Acid 500mg tab ORAL SCH (18:28)
--- NOTE | 2020-02-29 19:10 | NUR ---
NURSE NOTES: Received endorsement from anupamarn. patient on bed, awake and verbally responsive. no sob. with iv line on the left forearm and left ac running d5 1/2 ns at 100 ml/hr. patient is s/p blood transfusion 1 prbc for hemoglobin of 6.8. per anupama,rn she changed the dressing for the wounds. reiterated to use the call light. bed locked and in lowest position. call light and light button within easy reach. will continue plan of care.
--- NOTE | 2020-02-29 19:30 | NUR ---
HAND-OFF: Report given to
[2020-02-29 20:00] VITALS: BP 107/66
[2020-02-29] MEDS: Enoxaparin 40mg Inj SUBQ SCH (21:29)
--- NOTE | 2020-02-29 22:42 | CDS Physician Query ---
Clarification is required for compliance, coding accuracy, and to reflect severity of illness for this patient Dear Dr. Jeffry Chu Date: 02/29/20 SIRS has been documented in H&P. Patient is admitted with Pneumonia, UTI and Endocarditis. On admission: WBC: 12.9 HR: 95 BP: 103/55 Rx: IV Zosyn, Vancomycin Please clarify if patient has: [ x ] SIRS Only (Meaning no sepsis present) [ ] Sepsis [ ] Severe Sepsis [ ] Septic shock [ ] Other: New UTI. PRIOR Endocarditis on antibiotic therapy for 5 1/2 weeks. [ ] Clinically Undetermined Present on Admission: [ x ] Yes [ ] No [ ] Clinically Undetermined Physician signature Date Please also document in your Progress Notes and/or Discharge Summary and indicate if the condition was present on admission MTDD
[2020-03-01] VITALS: BP 111/65
[2020-03-01 04:00] VITALS: BP 120/70
[2020-03-01] MEDS: D51/2NS 1000ml IV SCH ×2 (04:55→15:47)
--- NOTE | 2020-03-01 07:00 | NUR ---
NURSE NOTES: called dr. cross and left a message regarding the patient who's positive for mdr urine.charge nurse made aware
[2020-03-01 07:07] LABS: ALANINE AMINOTRANSFERASE 10 U/L (12-78); ALBUMIN 1.9 G/DL (3.4-5.0); ALBUMIN/GLOBULIN RATIO 0.4 (1.0-2.7); ALKALINE PHOSPHATASE 52 U/L (46-116); ANION GAP 10 mmol/L (5-15); ASPARTATE AMINO TRANSFERASE 15 U/L (15-37); BILIRUBIN,TOTAL 0.5 MG/DL (0.2-1.0); BLOOD UREA NITROGEN 25 mg/dL (7-18); CALCIUM 9.2 MG/DL (8.5-10.1); CARBON DIOXIDE 23 MMOL/L (21-32); CHLORIDE 104 MMOL/L (98-107); CREATININE 1.6 MG/DL (0.55-1.30); POTASSIUM 4.2 MMOL/L (3.5-5.1); SODIUM 137 MMOL/L (136-145)
--- NOTE | 2020-03-01 07:30 | NUR ---
NURSE NOTES: Report received from Marie MURRAY. Patient seen on rounds, AxOx1, confused, not in distress. No outward sx of pain. Patient is able to tolerate room air, sats 93-97%. PIV on left AC and forearm, both patent and no sx of infiltration. Odonnell cath secured and draining well. Wound dressing on sacrum, bilateral lower extremities intact. Bed low and locked, siderails up x3, zone alarms on zone 1, call light placed within reach, will do frequent visual rounds.
--- NOTE | 2020-03-01 07:34 | NUR ---
HAND-OFF: Report given to alexa iyer.
[2020-03-01 08:09] LABS: HEMATOCRIT 27.8 % (42.0-52.0); MEAN CORPUSCULAR VOLUME 70 FL (80-99); PLATELET COUNT 228 K/UL (150-450); RED BLOOD COUNT 3.99 M/UL (4.70-6.10); RED CELL DISTRIBUTION WIDTH 16.6 % (11.6-14.8); WHITE BLOOD COUNT 11.1 K/UL (4.8-10.8)
[2020-03-01 08:16] LABS: HEMOGLOBIN 8.8 G/DL (14.2-18.0)
[2020-03-01] MEDS: Multivitamins W/Minerals 15 ML UDC GT SCH (08:28)
[2020-03-01] MEDS: Dakin's 0.125% Soln (Quarter Strength) 16oz TOPIC SCH (08:28)
[2020-03-01] MEDS: Zoysn 3.37gm in NS 100ML IVPB SCH ×2 (08:28→16:49)
[2020-03-01] MEDS: Ascorbic Acid 500mg tab ORAL SCH ×2 (08:28→16:53)
[2020-03-01] MEDS: Zinc Sulfate 220mg cap ORAL SCH (08:29)
[2020-03-01 09:00] VITALS: BP 127/75
[2020-03-01 12:00] VITALS: BP 123/75
--- NOTE | 2020-03-01 13:00 | NUR ---
NURSE NOTES: Wound assessment and dressing change done.
--- NOTE | 2020-03-01 14:58 | Surgery Progress Note ---
Surgery Progress Note Subjective Additional Comments no acute events labs noted exam stable comfortable appearing Objective Last 24 Hour Vital Signs Date Time Temp Pulse Resp B/P (MAP) Pulse Ox O2 Delivery O2 Flow Rate FiO2 03/01/20 12:00 97.8 76 20 123/75 (91) 93 03/01/20 09:00 Room Air 03/01/20 09:00 97.1 66 20 127/75 (92) 93 03/01/20 04:00 97.8 85 20 120/70 (87) 97 03/01/20 00:00 98.4 70 21 111/65 (80) 98 02/29/20 21:00 Room Air 02/29/20 20:00 98.3 77 20 107/66 (80) 98 02/29/20 16:00 97.9 67 19 113/71 (85) 92 I&O Intake and Output 02/29/20 03/01/20 19:00 07:00 Intake Total 300 ml Output Total 500 ml 700 ml Balance -500 ml -400 ml Intake Oral 300 ml Output Urine Total 500 ml 700 ml # Bowel Movements 2 1 Dressing: saturated Wound: clean Cardiovascular: RSR Respiratory: clear, decreased breath sounds Abdomen: soft, non-tender, present bowel sounds Extremities: no edema, no tenderness, no cyanosis, other Laboratory Tests Test 03/01/20 06:00 White Blood Count 11.1 K/UL (4.8-10.8) H Red Blood Count 3.99 M/UL (4.70-6.10) L Hemoglobin 8.8 G/DL (14.2-18.0) L Hematocrit 27.8 % (42.0-52.0) L Mean Corpuscular Volume 70 FL (80-99) L Mean Corpuscular Hemoglobin 22.1 PG (27.0-31.0) L Mean Corpuscular Hemoglobin Concent 31.7 G/DL (32.0-36.0) L Red Cell Distribution Width 16.6 % (11.6-14.8) H Platelet Count 228 K/UL (150-450) Mean Platelet Volume 5.7 FL (6.5-10.1) L Neutrophils (%) (Auto) % (45.0-75.0) Lymphocytes (%) (Auto) % (20.0-45.0) Monocytes (%) (Auto) % (1.0-10.0) Eosinophils (%) (Auto) % (0.0-3.0) Basophils (%) (Auto) % (0.0-2.0) Differential Total Cells Counted 100 Neutrophils % (Manual) 86 % (45-75) H Lymphocytes % (Manual) 6 % (20-45) L Monocytes % (Manual) 6 % (1-10) Eosinophils % (Manual) 2 % (0-3) Basophils % (Manual) 0 % (0-2) Band Neutrophils 0 % (0-8) Platelet Estimate Adequate Platelet Morphology Normal Hypochromasia 3+ Anisocytosis 2+ Microcytosis 3+ Sodium Level 137 MMOL/L (136-145) Potassium Level 4.2 MMOL/L (3.5-5.1) Chloride Level 104 MMOL/L (98-107) Carbon Dioxide Level 23 MMOL/L (21-32) Anion Gap 10 mmol/L (5-15) Blood Urea Nitrogen 25 mg/dL (7-18) H Creatinine 1.6 MG/DL (0.55-1.30) H Estimat Glomerular Filtration Rate 50.7 mL/min (>60) Glucose Level 82 MG/DL (74-106) Calcium Level 9.2 MG/DL (8.5-10.1) Total Bilirubin 0.5 MG/DL (0.2-1.0) Aspartate Amino Transf (AST/SGOT) 15 U/L (15-37) Alanine Aminotransferase (ALT/SGPT) 10 U/L (12-78) L Alkaline Phosphatase 52 U/L (46-116) Total Protein 6.8 G/DL (6.4-8.2) Albumin 1.9 G/DL (3.4-5.0) L Globulin 4.9 g/dL Albumin/Globulin Ratio 0.4 (1.0-2.7) L Random Vancomycin Level 19.0 ug/mL Plan Problems: (1) Right lower lobe pneumonia Assessment & Plan: Findings: There is a moderate size right pleural effusion. Opacity at the right lung base may be secondary to the pleural fluid, but infiltrate also likely. The heart is enlarged. There is a left chest pacemaker. The left lung and pleural space are clear. The right upper lobe is clear. Impression: Right basilar moderate pleural effusion and likely parenchymal consolidation Cardiomegaly Pacemaker cont abx pending micro (2) Failure to thrive Assessment & Plan: DAILY ESTIMATED NEEDS: Needs based on Wounds/ 70.5kg 25-30 kcals/kg 9002-4666 total kcals 1.25-2 g protein/kg 88-141 g total protein 25-30 mL/kg 0533-7182 total fluid mLs NUTRITION DIAGNOSIS: Increased kcal/prot/micronutrients needs R/T wound healing as evidenced by pt admitted w/ multiple advanced wounds, pending evaluation. CURRENT DIET:REGULAR PO DIET RECOMMENDATIONS: REGULAR/ texture as tolerated ADDITIONAL RECOMMENDATIONS: * Calibrated bedscale wt for accurate CBW * Consider Calorie Count x 48 hrs- FTT dx * Add Ensure Enlive BID for now, monitor need to increase * Wound healing: add MVI w/ mineral 1 tab QD, Vit C 500mg BID add ZnSO4 220mg QD x 10 days add David 1pkt BID (3) UTI (urinary tract infection) (4) Decubitus skin ulcer Assessment & Plan: Pt presented on admission with multiple pressure injuries. 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 100% slough at base of wound with marginal erythema along borders.` Unstageable pressure injury lateral R 1st metatarsal and L Hallux. Base of wound is 100% necrotic. Borders and periwound are callused. Unstageable Pressure Injury R heel. Base of wound is 100% necrotic with callused borders.In close proximity but extending into medial aspect of heel is a DTPI. Base of wound is purple with maroon borders. Dry cracked skin periwound. DTPI Plantar L heel. Unstageable pressure L lateral malleolus. 100% yellow slough with surrounding dry black borders. No exudate noted. Proximally to L malleolus Elongated area that is maroon in color. will likely plan for debridement of sacral wound as could use given how large and ill it is Tx.Plan: Cleanse Sacral wound with Dakin's 0.125% ashleigh. Apply Dakin's moistened Gauze to wound. Cover with Optifoam drsg Daily and prn. Apply Betadine to R foot wounds. Cover with ABD Pads and wrap with Kerlix Every 3 days and prn. Apply Betadine to L foot Wounds. Cover with ABD Pads and Wrap with Kerlix every 3 days and prn. APM/BHAVESH Mattress overlay. Reposition at least every 2hours or as tolerated. Off-load heels with Pillow. Yao Mccarty Mar 01, 2020 14:58
[2020-03-01 16:00] VITALS: BP 129/77
--- NOTE | 2020-03-01 16:43 | NUR ---
NURSE NOTES: Left message with Dr. Angel re: negative Covid PCR results from 02/27 and urine culture results (+) MDR/pseudomonas putida. Awaiting callback.
--- NOTE | 2020-03-01 19:17 | NUR ---
HAND-OFF: Report given to TERRI Wilkins.
--- NOTE | 2020-03-01 19:18 | NUR ---
NURSE NOTES: Report received from Charisma MURRAY. Patient is awake and alert 1. Patient noted to have IV access in left forearm and left ac with fluids running per MD orders. Patient does not appear to be in respiratory distress at this time. Patient found to be covid negative. Droplet precautions have not yet been removed. Call light in reach. Bed in lowest position, alarm on. Will continue to follow plan of care.
[2020-03-01 20:00] VITALS: BP 118/71
--- NOTE | 2020-03-01 20:10 | NUR ---
NURSE NOTES: Call light going off. Patient found to be getting out of bed. Patient alert and oriented x 1. Unable to reorient patient. patient keeps stating that it is time for him to go home. Patient pulled out indwelling santiago. Minimal blood noted at head of penis. No active bleeding noted. Patient pulled out IV lines. Refusing to let Franky MURRAY to reinsert. patient placed in restraints. Charge Nurse Jacobo aware. Franky MURRAY left voice message with Doctor Jeanne. Awaiting call back.
--- NOTE | 2020-03-01 20:20 | NUR ---
NURSE NOTES: Spoke with Doctor Angel via telephone. Franky MURRAY made doctor manriquez that patient removed santiago and IV access. Doctor Angel is aware of no IV access and that patient is refusing care. Gave verbal order to place patient in bilateral soft wrist restraints.
[2020-03-01] MEDS: Enoxaparin 40mg Inj SUBQ SCH (20:37)
--- NOTE | 2020-03-01 22:30 | History and Physical Report ---
DATE OF ADMISSION: 02/28/2020 HISTORY OF PRESENT ILLNESS: This is an 79-year-old male who is a fdc resident from [facility]. 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 He was admitted for a 6-week course; however, in the last week, he has developed a difficulty with poor appetite and fatigue. He was transferred to [facility] where he was found to have leukocytosis and also anemia. X-ray of chest confirmed a right lung infiltrate. He was admitted to the hospital. PAST HISTORY: Notable as discussed above for endocarditis, fdc resident. CURRENT MEDICATIONS: Include Tylenol, vitamin C, dextrose, half-normal saline, Lovenox for DVT prophylaxis, Pepcid, Zosyn, and vancomycin. REVIEW OF SYSTEMS: The patient denies any headaches, hematemesis, melena, or hematochezia. PHYSICAL EXAMINATION: GENERAL: Reveals an 79-year-old male. VITAL SIGNS: O2 saturation 93% on room air, blood pressure 127/70, heart rate 64, respirations 18, he is afebrile. HEENT: Unremarkable. CHEST: Lungs clear breath sounds bilaterally. ABDOMEN: Soft. EXTREMITIES: There is edema. LABORATORY DATA: Lab testing shows hemoglobin initially 7.3, dropped to 6.8, now 8.8. 11. Platelet count is normal. Chemistries show creatinine 1.6. IMPRESSION: 1. Endocarditis, on antibiotics. 2. Acute anemia, status post PRBC. 3. Rule out COVID-19. DISCUSSION: Continue current medications and care. I am uncertain if the dropping of hemoglobin represented laboratory error or he was actually transfused. I will verify this by review of nursing documentation. The patient has a Odonnell catheter in place. The patient has been found to have urine positive for MDR. We will consult ID. I have verified and the patient did receive 1 unit of packed RBC yesterday. He was also noted to have wounds, which have been cleaned and dressed. We will continue to follow carefully. He needs physical therapy. Discharge planning back to shelter facility once ready. Feliciano Angel M.D. DR: Mamie JOB#: [id number] CC:
[2020-03-02] VITALS: BP 127/79
[2020-03-02] MEDS: D51/2NS 1000ml IV SCH ×3 (00:08→21:23)
[2020-03-02] MEDS: Zoysn 3.37gm in NS 100ML IVPB SCH ×2 (00:08→07:48)
[2020-03-02 04:00] VITALS: BP 134/75
--- NOTE | 2020-03-02 05:01 | NUR ---
NURSE NOTES: Patient incontinent of urine. Patient noted to have hematuria likely due to patient forcefully removing indwelling santiago previously in shift.
--- NOTE | 2020-03-02 07:10 | NUR ---
HAND-OFF: Report given to Charisma MURRAY. Endorsed that patient has had improved behavior since restraints have been applied. Endorsed why restraints were applied. Endorsed that Doctor Jeanne is aware of removal of santiago catheter and IV. Patient currently asleep in stable condition.
--- NOTE | 2020-03-02 07:27 | NUR ---
NURSE NOTES: Report received from Franky MURRAY. Patient seen on rounds, AxOx1, confused, not in distress. Appears calm. No outward sx of pain. Patient is able to tolerate room air, sats 93-97%. PIV on right forearm, patent and no sx of infiltration. Bilateral wrist restraints in place, good circulation and pulses palpable. Wound dressing on sacrum, bilateral lower extremities intact. Bed low and locked, siderails up x3, zone alarms on zone 1, call light placed within reach, will do frequent visual rounds.
[2020-03-02] MEDS: Multivitamins W/Minerals 15 ML UDC GT SCH (07:48)
[2020-03-02] MEDS: Ascorbic Acid 500mg tab ORAL SCH ×2 (07:48→17:40)
[2020-03-02] MEDS: Zinc Sulfate 220mg cap ORAL SCH (07:48)
[2020-03-02] MEDS: Dakin's 0.125% Soln (Quarter Strength) 16oz TOPIC SCH (07:48)
[2020-03-02 08:00] VITALS: BP 136/84
--- NOTE | 2020-03-02 09:45 | NUR ---
NURSE NOTES: Spoke with dtr Ethel, notified her of events last night and that patient pulled out Odonnell and PIV and was extremely agitated, had to be placed on restraints. Dtr verbalized understanding. Asked that we call patient's son Eder to talk with patient and help calm him down. Patient was much more cooperative this morning. Allowed nurse to check vitals and change him. Assisted him with breakfast and he ate 100%. Patient spoke with son over telephone and was very calm. Will continue to monitor.
--- NOTE | 2020-03-02 10:00 | NUR ---
NURSE NOTES: Dr. Angel made rounds. Notified him of MDR urine culture results and negative Covid swab. Dr. Angel said Dr. Mccord (ID) on case and will see patient today re: MDR urine. Patient on already on IV ATB. Also received orders to re-swab patient for Covid-19. Rock Splitter Karma informed for swab kit. Rock Splitter informed charge nurse Tamera that kits are limited and will be used for patients that need intitial testing done. Will update Dr. Mccord once she sees patient.
--- NOTE | 2020-03-02 10:41 | Pulmonology Progress Note ---
Assessment/Plan Assessment/Plan IMPRESSION: 1. Endocarditis, on antibiotics. 2. Acute anemia, status post PRBC. 3. Ruled out COVID-19 x1. Second swab requested 4. Agitation; will consult psych DISCUSSION: Continue current medications and care. The patient has a Odonnell catheter in place. The patient has been found to have urine positive for MDR. Consulted ID. I I will continue to follow carefully. [facility]. May need ASHLEY to confirm resolution of endocarditis; will discuss with cardiology Feliciano Angel M.D. Subjective Interval Events: None new Constitutional: Reports: no symptoms HEENT: Repors: no symptoms Respiratory: Reports: no symptoms Cardiovascular: Reports: no symptoms Gastrointestinal/Abdominal: Reports: no symptoms Allergies: Coded Allergies: No Known Allergies (Unverified , 02/28/20) Objective Last 24 Hour Vital Signs Date Time Temp Pulse Resp B/P (MAP) Pulse Ox O2 Delivery O2 Flow Rate FiO2 03/02/20 09:00 Room Air 03/02/20 08:00 98.5 61 20 136/84 (101) 97 03/02/20 05:02 Room Air 03/02/20 04:00 97.8 70 20 134/75 (94) 96 03/02/20 00:00 97.6 69 20 127/79 (95) 94 03/01/20 21:00 Room Air 03/01/20 20:00 97.1 76 18 118/71 (87) 98 03/01/20 16:00 97.0 86 18 129/77 (94) 97 03/01/20 12:00 97.8 76 20 123/75 (91) 93 Intake and Output 03/01/20 03/02/20 19:00 07:00 Intake Total 2025.0 ml 865.0 ml Output Total 700 ml Balance 1325.0 ml 865.0 ml Intake Oral 660 ml IV Total 1365.0 ml 865.0 ml Output Urine Total 700 ml # Voids 1 # Bowel Movements 2 2 General Appearance: no acute distress HEENT: normocephalic Respiratory/Chest: chest wall non-tender Cardiovascular: normal peripheral pulses Abdomen: normal bowel sounds Microbiology Date/Time Source Procedure Growth Status 02/28/20 14:25 Blood Blood Culture - Preliminary NO GROWTH AFTER 48 HOURS Resulted 02/28/20 14:10 Blood Blood Culture - Preliminary NO GROWTH AFTER 48 HOURS Resulted 02/28/20 15:00 Nasal Nares MRSA Culture - Final NO METHICILLIN RESISTANT STAPH AUREUS... Complete 02/28/20 14:52 Nasopharynx Coronavirus COVID-19 PCR (LATONIA) - Final Complete 02/28/20 14:40 Urine,Clean Catch Urine Culture - Final Pseudomonas Putida Complete 02/28/20 15:00 Rectum - Final NO CARBAPENEM-RESISTANT ENTEROBACTERI... Complete 02/28/20 15:00 Rectum VRE Culture - Final NO VANCOMYCIN RESISTANT ENTEROCOCCUS ... Complete Laboratory Tests 03/01/20 14:00: Stool Occult Blood [Pending] 03/02/20 08:10: Random Vancomycin Level 13.6 Current Medications Medications (Trade) Dose Ordered Sig/Ramiro Route PRN Reason Start Time Stop Time Status Last Admin Dose Admin Acetaminophen (Tylenol) 650 mg Q4H PRN ORAL Mild Pain (Pain Scale 1-3) 02/28/20 17:45 03/29/20 17:44 02/29/20 06:24 Ascorbic Acid (Vitamin C) 500 mg TWICE A DAY ORAL 02/29/20 18:00 03/30/20 17:59 03/02/20 07:48 Bisacodyl (Dulcolax) 10 mg DAILYPRN PRN ORAL Constipation 02/28/20 18:00 05/28/20 17:44 Dextrose (Dextrose 50%) 25 ml Q30M PRN IV Hypoglycemia 02/28/20 17:45 05/28/20 17:44 Dextrose (Dextrose 50%) 50 ml Q30M PRN IV Hypoglycemia 02/28/20 17:45 05/28/20 17:44 Dextrose/Sodium Chloride 1,000 ml @ 100 mls/hr Q10H IV 02/29/20 19:00 03/30/20 18:59 03/02/20 00:08 Enoxaparin Sodium (Lovenox) 40 mg Q24H SUBQ 02/28/20 21:00 05/28/20 20:59 02/29/20 21:29 Famotidine (Pepcid) 40 mg DAILY ORAL 02/29/20 09:00 05/29/20 08:59 03/02/20 07:48 Magnesium Hydroxide (Mom) 30 ml DAILYPRN PRN ORAL Constipation 02/28/20 17:45 03/29/20 17:44 Morphine Sulfate (Morphine Sulfate) 1 mg Q3H PRN IVP For Pain 02/28/20 17:45 03/06/20 17:44 Multivitamins (Multivitamins W/ Minerals 15ml Liquid) 15 ml DAILY GT 03/01/20 09:00 03/31/20 08:59 03/02/20 07:48 Ondansetron HCl (Zofran) 4 mg Q6H PRN IVP Nausea & Vomiting 02/28/20 17:45 03/29/20 17:44 Piperacillin Sod/ Tazobactam Sod 3.375 gm/Sodium Chloride 110 ml @ 27.5 mls/hr Q8H IVPB 02/29/20 00:30 03/07/20 00:29 03/02/20 07:48 Sodium Hypochlorite (Dakin's Quarter Strength) 1 applic DAILY TOPIC 03/01/20 09:00 03/31/20 08:59 03/02/20 07:48 Sodium Phosphate (Fleet's Sodium Phosl Enema) 133 ml DAILYPRN PRN RECTAL Constipation 02/28/20 17:45 03/29/20 17:44 Vancomycin HCl (Vanco rx to dose) 1 ea DAILY PRN MISC Per rx protocol 02/28/20 17:45 03/29/20 17:44 Vancomycin HCl 1 gm/Dextrose 275 ml @ 183.708 mls/hr ONCE ONCE IVPB 03/02/20 11:00 03/02/20 12:29 Zinc Sulfate (Zinc Sulfate) 220 mg DAILY ORAL 03/01/20 09:00 05/30/20 08:59 03/02/20 07:48 Feliciano Angel MD Mar 02, 2020 10:41
[2020-03-02] MEDS ORDERED: Vancomycin 1gm in D5W 275ml IVPB ONE (11:00)
[2020-03-02 12:02] VITALS: BP 122/82
--- NOTE | 2020-03-02 13:32 | Surgery Progress Note ---
Surgery Progress Note Subjective Additional Comments no acute events comfortable stable no complaints Objective Last 24 Hour Vital Signs Date Time Temp Pulse Resp B/P (MAP) Pulse Ox O2 Delivery O2 Flow Rate FiO2 03/02/20 12:02 98.4 93 18 122/82 (95) 97 03/02/20 09:00 Room Air 03/02/20 08:00 98.5 61 20 136/84 (101) 97 03/02/20 05:02 Room Air 03/02/20 04:00 97.8 70 20 134/75 (94) 96 03/02/20 00:00 97.6 69 20 127/79 (95) 94 03/01/20 21:00 Room Air 03/01/20 20:00 97.1 76 18 118/71 (87) 98 03/01/20 16:00 97.0 86 18 129/77 (94) 97 I&O Intake and Output 03/01/20 03/02/20 19:00 07:00 Intake Total 2025.0 ml 865.0 ml Output Total 700 ml Balance 1325.0 ml 865.0 ml Intake Oral 660 ml IV Total 1365.0 ml 865.0 ml Output Urine Total 700 ml # Voids 1 # Bowel Movements 2 2 Dressing: other Wound: other Drains: other Cardiovascular: RSR Respiratory: decreased breath sounds Abdomen: soft, non-tender, present bowel sounds Extremities: no edema, no tenderness, no cyanosis Laboratory Tests Test 03/01/20 14:00 03/02/20 08:10 Stool Occult Blood Negative (NEGATIVE) Random Vancomycin Level 13.6 ug/mL Plan Problems: (1) Right lower lobe pneumonia Assessment & Plan: Findings: There is a moderate size right pleural effusion. Opacity at the right lung base may be secondary to the pleural fluid, but infiltrate also likely. The heart is enlarged. There is a left chest pacemaker. The left lung and pleural space are clear. The right upper lobe is clear. Impression: Right basilar moderate pleural effusion and likely parenchymal consolidation Cardiomegaly Pacemaker cont abx pending micro (2) Failure to thrive Assessment & Plan: DAILY ESTIMATED NEEDS: Needs based on Wounds/ 70.5kg 25-30 kcals/kg 8140-1780 total kcals 1.25-2 g protein/kg 88-141 g total protein 25-30 mL/kg 1029-2079 total fluid mLs NUTRITION DIAGNOSIS: Increased kcal/prot/micronutrients needs R/T wound healing as evidenced by pt admitted w/ multiple advanced wounds, pending evaluation. CURRENT DIET:REGULAR PO DIET RECOMMENDATIONS: REGULAR/ texture as tolerated ADDITIONAL RECOMMENDATIONS: * Calibrated bedscale wt for accurate CBW * Consider Calorie Count x 48 hrs- FTT dx * Add Ensure Enlive BID for now, monitor need to increase * Wound healing: add MVI w/ mineral 1 tab QD, Vit C 500mg BID add ZnSO4 220mg QD x 10 days add David 1pkt BID (3) UTI (urinary tract infection) (4) Decubitus skin ulcer Assessment & Plan: Pt presented on admission with multiple pressure injuries. 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 100% slough at base of wound with marginal erythema along borders.` Unstageable pressure injury lateral R 1st metatarsal and L Hallux. Base of wound is 100% necrotic. Borders and periwound are callused. Unstageable Pressure Injury R heel. Base of wound is 100% necrotic with callused borders.In close proximity but extending into medial aspect of heel is a DTPI. Base of wound is purple with maroon borders. Dry cracked skin periwound. DTPI Plantar L heel. Unstageable pressure L lateral malleolus. 100% yellow slough with surrounding dry black borders. No exudate noted. Proximally to L malleolus Elongated area that is maroon in color. will likely plan for debridement of sacral wound as could use given how large and ill it is Tx.Plan: Cleanse Sacral wound with Dakin's 0.125% ashleigh. Apply Dakin's moistened Gauze to wound. Cover with Optifoam drsg Daily and prn. Apply Betadine to R foot wounds. Cover with ABD Pads and wrap with Kerlix Every 3 days and prn. Apply Betadine to L foot Wounds. Cover with ABD Pads and Wrap with Kerlix every 3 days and prn. APM/BHAVESH Mattress overlay. Reposition at least every 2hours or as tolerated. Off-load heels with Pillow. Yao Mccarty Mar 02, 2020 13:32
--- NOTE | 2020-03-02 15:34 | NUR ---
NURSE NOTES: Spoke with Dr. Kenyetta Oquendo re: covid negative results. Explained that Dr. Angel wanted to repeat swabs but testing kits were limited. Clarified if patient should be discontinued from Droplet isolation precautions. Received orders to maintain on current precautions, repeat CXR and notify MD of results. Orders noted and carried out.
[2020-03-02] MEDS: Cefepime HCl 2 GM in D5W 55 ML IVPB SCH ×2 (15:59→21:00)
[2020-03-02 16:02] VITALS: BP 119/76
--- NOTE | 2020-03-02 19:36 | NUR ---
HAND-OFF: Report given to TERRI Burgess.
--- NOTE | 2020-03-02 19:50 | NUR ---
NURSE NOTES: Patient received in bed, awake, confused but verbally responsive. On bilateral soft wrist restraints. Denies pain or discomfort at this time. IV infusing. Condom catheter in place and draining well. Bed locked in low position, siderails x3, bed alarm on. Will continue close monitoring.
[2020-03-02 20:00] VITALS: BP 137/81
--- NOTE | 2020-03-02 20:15 | Consultation ---
DATE OF CONSULTATION: 03/02/2020 INFECTIOUS DISEASES CONSULTATION This consult is for coverage of Dr. Mccord. PRIMARY ATTENDING PHYSICIAN: Dr. Chu. REASON FOR CONSULTATION: UTI, pneumonia, necrotic pressure ulcer. HISTORY OF PRESENT ILLNESS: The patient is an 79-year-old male admitted on 02/28/2020 from a nursing facility because of poor appetite, failure to thrive, fatigue. 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 The patient was supposed to finish his antibiotic on 02/29/2020. At the time of admission, patient had increased WBC and respiratory rate. PAST MEDICAL HISTORY: Significant for hypertension, hyperlipidemia, anemia, pressure ulcer. ALLERGIES: No known drug allergies. MEDICATIONS: Getting zinc, multivitamin, sodium hypochlorite, vitamin D, famotidine, Zosyn, enoxaparin, bisacodyl, magnesium hydroxide, Tylenol, morphine sulfate, vancomycin to be dosed by pharmacy. SOCIAL HISTORY: long-term resident. No history of alcohol, drug abuse, or smoking. REVIEW OF SYSTEMS: The patient states he is fine, has no complaints. PHYSICAL EXAMINATION: VITAL SIGNS: Temperature 98.4, pulse 93, blood pressure 122/82. No fever during this hospitalization. HEAD AND NECK: [place] conjunctiva. HEART: Normal rate. LUNGS: Clear. ABDOMEN: Soft. EXTREMITIES: No edema of legs. SKIN: Pressure ulcer in gluteal and sacral, unstageable. Right heel pressure ulcer. NEUROLOGIC: Awake, alert, responsive. LABORATORY AND DIAGNOSTIC DATA: WBC 11.1, at the time of admission was 12.9. Hemoglobin 8.8, it was 6.8 yesterday. Platelet is 228. Sodium 137, potassium 4.0, chloride 104, bicarb 23, BUN 25, creatinine 1.6, glucose 82. Stool occult blood x 1 is negative. Urine culture growing Pseudomonas putida, intermediately sensitivity to cefepime and resistant to meropenem, cephalosporins, and Zosyn. Also is sensitive to polymyxin B and colistin. Blood culture x2 negative. MRSA screen is negative. VRE is negative. KPC is negative. Chest x-ray showed right basilar pleural effusion, no acute consolidation, cardiomegaly and pacemaker. IMPRESSION: Complicated UTI, may also have pneumonia, so far COVID-19 is negative. He has pressure ulcer that are necrotic and deep, has recent history of infective endocarditis of aortic valve, hypertension, hyperlipidemia, severe anemia received blood transfusion. RECOMMENDATION: Change Zosyn to cefepime. Continue IV vancomycin. We will follow up the cultures. At the end of my exam, I thank Dr. Chu and Dr. Angel, for involving me in the care of this patient. Gage Oquendo M.D. DR: Hitesh JOB#: [id number] CC: JAVID
[2020-03-02] MEDS: Enoxaparin 40mg Inj SUBQ SCH (21:22)
[2020-03-02] MEDS: Cefepime HCl 2 GM in D5W 110 ML IV SCH (21:22)
[2020-03-02] MEDS ORDERED: Cefepime HCl 2 GM in D5W 55 ML IV SCH (21:30)
[2020-03-03] VITALS: BP 137/74
--- NOTE | 2020-03-03 03:29 | Consultation ---
DATE OF CONSULTATION: 03/02/2020 HISTORY OF PRESENT ILLNESS: This is an 79-year-old male with a history of multiple medical issues including endocarditis, DVT, who has been admitted to the hospital. The patient is getting episodes of agitation and he is a poor historian. He continues to pull out his Odonnell and IV access, on restraints. PAST PSYCHIATRIC HISTORY: Dementia. PAST MEDICAL HISTORY: Hypertension. ALLERGIES: No known drug allergies. SUBSTANCE ABUSE HISTORY: No known history of illicit drug use or alcohol. MENTAL STATUS EXAMINATION: The patient is confused. Mood is agitated. Affect is flat. Thought process, there is a paucity of thought content. Thought content, no suicidal or homicidal ideation. Cognition is impaired. Insight and judgment impaired. ASSESSMENT: AXIS I: Dementia with behavior disturbance. PLAN: 1. Start the patient on Zyprexa 5 mg at night, 2.5 mg in the morning. 2. Hold if the patient is asleep or sedated. William Lopez M.D. DR: AILEEN JOB#: [id number] CC:
[2020-03-03 04:00] VITALS: BP 133/93
[2020-03-03] MEDS: D51/2NS 1000ml IV SCH ×2 (06:29→17:16)
--- NOTE | 2020-03-03 07:15 | Consultation ---
DATE OF CONSULTATION: 03/02/2020 CARDIOLOGY CONSULTATION CONSULTING PHYSICIAN: Yovany Durant MD. REASON FOR CONSULTATION: Evaluation for endocarditis. HISTORY OF PRESENT ILLNESS: This is an 79-year-old male. He completed treatment for MRSA bacteremia and aortic valve endocarditis on 02/29/2020, has leukocytosis and tachypnea. Since admission, he was noted to have a urinary tract infection and possible pneumonia as well as pressure ulcer of his lower extremities. I have been asked to address his endocarditis. So far, he has not had any positive blood cultures noted. PAST MEDICAL HISTORY: Hypertension, hyperlipidemia, degenerative valve disease, pressure ulcer, anemia, peripheral artery disease, permanent pacemaker. MEDICATIONS: Reviewed and reconciled. ALLERGIES: None known. FAMILY HISTORY: Noncontributory. SOCIAL HISTORY: No record of smoking, alcohol, or substance abuse. [facility]. REVIEW OF SYSTEMS: Not reliably obtained from the patient. Pertinent data outlined above from review of records. PHYSICAL EXAMINATION: VITAL SIGNS: Afebrile, blood pressure 122/82, pulse 93, respiratory rate 18. HEENT: Conjunctiva pink. Sclerae are anicteric. Oropharynx clear. Mucous membranes moist. NECK: Supple. Jugular venous pressure normal. CARDIAC: Regular. Normal S1, S2 with a 1/6 systolic murmur at the base. ABDOMEN: Soft. EXTREMITIES: No edema. Right heel ulcer has dressing in place. Sacral ulcer is noted in record. No signs of Osler's nodes or Janeway lesions. LABORATORY AND DIAGNOSTIC DATA: Labs reviewed. Chest x-ray with right basilar infiltrate and effusion; left sided pacemaker. IMPRESSION: 1. Urinary tract infection. 2. Probable pneumonia with parapneumonic effusion. 3. Aortic valve endocarditis status post completion of therapy. 4. Hypertensive heart disease. 5. Permanent pacemaker PLAN: 1. Blood cultures. 2. Echocardiogram. 3. Antimicrobials per Infectious Diseases assessment consultant. 4. Consideration for additional diagnostic evaluation once aforementioned studies are reviewed. 5. Outpatient pacemaker interrogation. Yovany Durant M.D. DR: Alix JOB#: [id number] CC: JAVID
--- NOTE | 2020-03-03 07:15 | NUR ---
HAND-OFF: Report given to Charisma MURRAY. Patient asleep and calm with bilateral soft wrist restraints.
--- NOTE | 2020-03-03 07:21 | NUR ---
NURSE NOTES: Report received from Aditya MURRAY. Patient seen on rounds, AxOx1, confused, not in distress. Appears calm. No outward sx of pain. RN reports patient slept well last night. Patient is able to tolerate room air, sats 93-97%. PIV on right forearm, patent and no sx of infiltration. Bilateral wrist restraints in place, good circulation and pulses palpable. Wound dressing on sacrum, bilateral lower extremities intact. Bed low and locked, siderails up x3, zone alarms on zone 1, call light placed within reach, will do frequent visual rounds.
[2020-03-03 08:00] VITALS: BP 144/83
[2020-03-03] MEDS: Multivitamins W/Minerals 15 ML UDC GT SCH (08:30)
[2020-03-03] MEDS: Ascorbic Acid 500mg tab ORAL SCH ×2 (08:30→17:20)
[2020-03-03] MEDS: Dakin's 0.125% Soln (Quarter Strength) 16oz TOPIC SCH (08:31)
[2020-03-03] MEDS: Cefepime HCl 2 GM in D5W 110 ML IV SCH (08:31)
[2020-03-03] MEDS: Zinc Sulfate 220mg cap ORAL SCH (08:31)
[2020-03-03] MEDS ORDERED: Cefepime HCl 2 GM in D5W 110 ML IV SCH (09:00)
[2020-03-03] MEDS ORDERED: OLANZapine 2.5mg tab ORAL SCH (09:00)
--- NOTE | 2020-03-03 09:26 | Diagnostic Imaging Report ---
Indication: Chest pain Technique: One view of the chest Comparison: 02/28/2020 Findings: Heart is enlarged. Hazy right basilar opacity likely pleural fluid appear unchanged. Left chest pacemaker is again demonstrated. Left lung and pleural space remain clear. Impression: Unchanged, over one day, findings as above.
--- NOTE | 2020-03-03 09:33 | NUR ---
RADIOLOGY: CXR COMPLETED AT 0930HRS. NF
--- NOTE | 2020-03-03 10:03 | NUR ---
RD ASSESSMENT & RECOMMENDATIONS SEE CARE ACTIVITY FOR COMPLETE ASSESSMENT MAY COUNT X 48 HRS WAS ORDERED ON 02/28, FOLLOWED UP THIS MORNING. MAY COUNT DATA NOT AVAILABLE. PER EMR, PT W/ VARIABLE PO INTAKE, BUT APPEARS TO BE IMPROVING. 02/28 DINNER: 25% PER EMR 03/01 BREAKFAST: 50% PER EMR LUNCH: 50% PER EMR DINNER: NOT RECORDED 03/02 BREAKFAST: 75% LUNCH: 50% DINNER: 50% ------ PT IS ESTIMATED TO CONSUME ~1000 OR LESS KCAL PER DAY, INADEQUATE TO MEET NEEDS. DAILY ESTIMATED NEEDS: Needs based on Wounds/ 70.5kg 25-30 kcals/kg 6132-5119 total kcals 1.25-2 g protein/kg 88-141 g total protein 25-30 mL/kg 6333-4392 total fluid mLs NUTRITION DIAGNOSIS: Increased kcal/prot/micronutrients needs R/T wound healing as evidenced by pt admitted w/ multiple advanced wounds, including stage 4 sacral, unstageable wounds @ lateral R 1st metatarsal, L Hallux, R heel, and L lateral malleolus. CURRENT DIET:REGULAR + Ensure BID PO DIET RECOMMENDATIONS: REGULAR/ texture as tolerated ADDITIONAL RECOMMENDATIONS: * Calibrated bedscale wt for accurate CBW * Calorie Count x 48 hrs complete, DATA NOT AVAILABLE -> continue to monitor PO intake closely, re-order if indicated * Ensure Enlive TID w/ variable intake * Consider appetite stimulant to help improve PO intake * Consider AIRPLANE FUELER eval for appropriate texture * Wound healing: Continue MVI+ Vit C + ZnSO4 + David BID
--- NOTE | 2020-03-03 10:10 | Surgery Progress Note ---
Surgery Progress Note Subjective Additional Comments h/h improved now wbc stable exam unchanged eating well no complaints Objective Last 24 Hour Vital Signs Date Time Temp Pulse Resp B/P (MAP) Pulse Ox O2 Delivery O2 Flow Rate FiO2 03/03/20 08:00 98.4 80 18 144/83 (103) 95 03/03/20 04:00 96.4 79 20 133/93 (106) 93 03/03/20 00:00 97.0 75 19 137/74 (95) 94 03/02/20 21:00 Room Air 03/02/20 20:00 97.8 83 19 137/81 (99) 97 03/02/20 19:37 Room Air 03/02/20 16:02 97.8 89 19 119/76 (90) 97 03/02/20 12:02 98.4 93 18 122/82 (95) 97 I&O Intake and Output 03/02/20 03/03/20 19:00 07:00 Intake Total 1640.0 ml 910 ml Output Total 400 ml 1200 ml Balance 1240.0 ml -290 ml Intake Oral 300 ml IV Total 1340.0 ml 910 ml Output Urine Total 400 ml 1200 ml # Bowel Movements 2 2 Dressing: other Wound: other Drains: other Cardiovascular: RSR Respiratory: decreased breath sounds Abdomen: soft, non-tender, present bowel sounds Extremities: no tenderness, no cyanosis Plan Problems: (1) Right lower lobe pneumonia Assessment & Plan: Findings: There is a moderate size right pleural effusion. Opacity at the right lung base may be secondary to the pleural fluid, but infiltrate also likely. The heart is enlarged. There is a left chest pacemaker. The left lung and pleural space are clear. The right upper lobe is clear. Impression: Right basilar moderate pleural effusion and likely parenchymal consolidation Cardiomegaly Pacemaker cont abx pending micro (2) Failure to thrive Assessment & Plan: DAILY ESTIMATED NEEDS: Needs based on Wounds/ 70.5kg 25-30 kcals/kg 4951-2389 total kcals 1.25-2 g protein/kg 88-141 g total protein 25-30 mL/kg 1380-9583 total fluid mLs NUTRITION DIAGNOSIS: Increased kcal/prot/micronutrients needs R/T wound healing as evidenced by pt admitted w/ multiple advanced wounds, pending evaluation. CURRENT DIET:REGULAR PO DIET RECOMMENDATIONS: REGULAR/ texture as tolerated ADDITIONAL RECOMMENDATIONS: * Calibrated bedscale wt for accurate CBW * Consider Calorie Count x 48 hrs- FTT dx * Add Ensure Enlive BID for now, monitor need to increase * Wound healing: add MVI w/ mineral 1 tab QD, Vit C 500mg BID add ZnSO4 220mg QD x 10 days add David 1pkt BID (3) UTI (urinary tract infection) (4) Decubitus skin ulcer Assessment & Plan: Pt presented on admission with multiple pressure injuries. 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 100% slough at base of wound with marginal erythema along borders.` Unstageable pressure injury lateral R 1st metatarsal and L Hallux. Base of wound is 100% necrotic. Borders and periwound are callused. Unstageable Pressure Injury R heel. Base of wound is 100% necrotic with callused borders.In close proximity but extending into medial aspect of heel is a DTPI. Base of wound is purple with maroon borders. Dry cracked skin periwound. DTPI Plantar L heel. Unstageable pressure L lateral malleolus. 100% yellow slough with surrounding dry black borders. No exudate noted. Proximally to L malleolus Elongated area that is maroon in color. will likely plan for debridement of sacral wound as could use given how large and ill it is Tx.Plan: Cleanse Sacral wound with Dakin's 0.125% ashleigh. Apply Dakin's moistened Gauze to wound. Cover with Optifoam drsg Daily and prn. Apply Betadine to R foot wounds. Cover with ABD Pads and wrap with Kerlix Every 3 days and prn. Apply Betadine to L foot Wounds. Cover with ABD Pads and Wrap with Kerlix every 3 days and prn. APM/BHAVESH Mattress overlay. Reposition at least every 2hours or as tolerated. Off-load heels with Pillow. Yao Mccarty Mar 03, 2020 10:10
--- NOTE | 2020-03-03 10:40 | Pulmonology Progress Note ---
Assessment/Plan Assessment/Plan IMPRESSION: 1. Endocarditis, on antibiotics. 2. Acute anemia, status post PRBC. 3. Ruled out COVID-19 x1. Second swab needed; will discuss with ID 4. Agitation; seen by psych DISCUSSION: Continue current medications and care. The patient has a Odonnell catheter in place. The patient has been found to have urine positive for MDR. Consulted ID. I will continue to follow carefully. Discharge planning back to [facility] facility once ready. May need ASHLEY to confirm resolution of endocarditis; will discuss with cardiology Feliciano Angel M.D. Subjective Interval Events: Seen by ID and psych; calm today Constitutional: Reports: no symptoms HEENT: Repors: no symptoms Respiratory: Reports: no symptoms Cardiovascular: Reports: no symptoms Gastrointestinal/Abdominal: Reports: no symptoms Allergies: Coded Allergies: No Known Allergies (Unverified , 02/28/20) Objective Last 24 Hour Vital Signs Date Time Temp Pulse Resp B/P (MAP) Pulse Ox O2 Delivery O2 Flow Rate FiO2 03/03/20 09:00 Room Air 03/03/20 08:00 98.4 80 18 144/83 (103) 95 03/03/20 04:00 96.4 79 20 133/93 (106) 93 03/03/20 00:00 97.0 75 19 137/74 (95) 94 03/02/20 21:00 Room Air 03/02/20 20:00 97.8 83 19 137/81 (99) 97 03/02/20 19:37 Room Air 03/02/20 16:02 97.8 89 19 119/76 (90) 97 03/02/20 12:02 98.4 93 18 122/82 (95) 97 Intake and Output 03/02/20 03/03/20 19:00 07:00 Intake Total 1640.0 ml 910 ml Output Total 400 ml 1200 ml Balance 1240.0 ml -290 ml Intake Oral 300 ml IV Total 1340.0 ml 910 ml Output Urine Total 400 ml 1200 ml # Bowel Movements 2 2 General Appearance: no acute distress HEENT: normocephalic Respiratory/Chest: chest wall non-tender, lungs clear Cardiovascular: normal peripheral pulses Abdomen: normal bowel sounds Current Medications Medications (Trade) Dose Ordered Sig/Ramiro Route PRN Reason Start Time Stop Time Status Last Admin Dose Admin Acetaminophen (Tylenol) 650 mg Q4H PRN ORAL Mild Pain (Pain Scale 1-3) 02/28/20 17:45 03/29/20 17:44 02/29/20 06:24 Ascorbic Acid (Vitamin C) 500 mg TWICE A DAY ORAL 02/29/20 18:00 03/30/20 17:59 03/03/20 08:30 Bisacodyl (Dulcolax) 10 mg DAILYPRN PRN ORAL Constipation 02/28/20 18:00 05/28/20 17:44 Cefepime HCl 2 gm/ Dextrose 110 ml @ 220 mls/hr EVERY 12 HOURS IV 03/02/20 22:00 03/09/20 21:59 03/03/20 08:31 Dextrose (Dextrose 50%) 25 ml Q30M PRN IV Hypoglycemia 02/28/20 17:45 05/28/20 17:44 Dextrose (Dextrose 50%) 50 ml Q30M PRN IV Hypoglycemia 02/28/20 17:45 05/28/20 17:44 Dextrose/Sodium Chloride 1,000 ml @ 100 mls/hr Q10H IV 02/29/20 19:00 03/30/20 18:59 03/03/20 06:29 Enoxaparin Sodium (Lovenox) 40 mg Q24H SUBQ 02/28/20 21:00 05/28/20 20:59 03/02/20 21:22 Famotidine (Pepcid) 40 mg DAILY ORAL 02/29/20 09:00 05/29/20 08:59 03/03/20 08:31 Magnesium Hydroxide (Mom) 30 ml DAILYPRN PRN ORAL Constipation 02/28/20 17:45 03/29/20 17:44 Morphine Sulfate (Morphine Sulfate) 1 mg Q3H PRN IVP For Pain 02/28/20 17:45 03/06/20 17:44 Multivitamins (Multivitamins W/ Minerals 15ml Liquid) 15 ml DAILY GT 03/01/20 09:00 03/31/20 08:59 03/03/20 08:30 Olanzapine (ZyPREXA) 2.5 mg DAILY ORAL 03/03/20 09:00 64/20 08:59 03/03/20 08:30 Olanzapine (ZyPREXA) 5 mg BEDTIME ORAL 03/02/20 21:00 04/16/20 20:59 03/02/20 21:22 Ondansetron HCl (Zofran) 4 mg Q6H PRN IVP Nausea & Vomiting 02/28/20 17:45 03/29/20 17:44 Sodium Hypochlorite (Dakin's Quarter Strength) 1 applic DAILY TOPIC 03/01/20 09:00 03/31/20 08:59 03/03/20 08:31 Sodium Phosphate (Fleet's Sodium Phosl Enema) 133 ml DAILYPRN PRN RECTAL Constipation 02/28/20 17:45 03/29/20 17:44 Vancomycin HCl (Vanco rx to dose) 1 ea DAILY PRN MISC Per rx protocol 02/28/20 17:45 03/29/20 17:44 Zinc Sulfate (Zinc Sulfate) 220 mg DAILY ORAL 03/01/20 09:00 05/30/20 08:59 03/03/20 08:31 Feliciano Angel MD Mar 03, 2020 10:40
--- NOTE | 2020-03-03 10:58 | NUR ---
*-* INSURANCE *-* ALL CLINICALS AND REVIEWS HAVE BEEN FAXD TO: [facility] NCM:SCOOBY P: [phone] F: [phone] (FAX CLINICALS HERE AND TO JES[facility] [phone]) & [facility] NCM:PARI P: [phone] F: [phone] CO Orders: [phone]
--- NOTE | 2020-03-03 10:59 | Infectious Diseases Prog Note ---
Assessment/Plan Assessment/Plan antibiotics : cefepime A 1. pseudomonas UTI 2. hypertension 3. COVID 19 negative 4. recent aortic valve endocarditis P 1. d/c cefepime 2. start colistin 3. will follow up cultures Subjective ROS Limited/Unobtainable: Yes Allergies: Coded Allergies: No Known Allergies (Unverified , 02/28/20) Objective Vital Signs Last 24 Hour Vital Signs Date Time Temp Pulse Resp B/P (MAP) Pulse Ox O2 Delivery O2 Flow Rate FiO2 03/03/20 09:00 Room Air 03/03/20 08:00 98.4 80 18 144/83 (103) 95 03/03/20 04:00 96.4 79 20 133/93 (106) 93 03/03/20 00:00 97.0 75 19 137/74 (95) 94 03/02/20 21:00 Room Air 03/02/20 20:00 97.8 83 19 137/81 (99) 97 03/02/20 19:37 Room Air 03/02/20 16:02 97.8 89 19 119/76 (90) 97 03/02/20 12:02 98.4 93 18 122/82 (95) 97 Height (Feet): 5 Height (Inches): 8.00 Weight (Pounds): 155 Current Medications Medications (Trade) Dose Ordered Sig/Ramiro Route PRN Reason Start Time Stop Time Status Last Admin Dose Admin Acetaminophen (Tylenol) 650 mg Q4H PRN ORAL Mild Pain (Pain Scale 1-3) 02/28/20 17:45 03/29/20 17:44 02/29/20 06:24 Ascorbic Acid (Vitamin C) 500 mg TWICE A DAY ORAL 02/29/20 18:00 03/30/20 17:59 03/03/20 08:30 Bisacodyl (Dulcolax) 10 mg DAILYPRN PRN ORAL Constipation 02/28/20 18:00 05/28/20 17:44 Cefepime HCl 2 gm/ Dextrose 110 ml @ 220 mls/hr EVERY 12 HOURS IV 03/02/20 22:00 03/09/20 21:59 03/03/20 08:31 Dextrose (Dextrose 50%) 25 ml Q30M PRN IV Hypoglycemia 02/28/20 17:45 05/28/20 17:44 Dextrose (Dextrose 50%) 50 ml Q30M PRN IV Hypoglycemia 02/28/20 17:45 05/28/20 17:44 Dextrose/Sodium Chloride 1,000 ml @ 100 mls/hr Q10H IV 02/29/20 19:00 03/30/20 18:59 03/03/20 06:29 Enoxaparin Sodium (Lovenox) 40 mg Q24H SUBQ 02/28/20 21:00 05/28/20 20:59 03/02/20 21:22 Famotidine (Pepcid) 40 mg DAILY ORAL 02/29/20 09:00 05/29/20 08:59 03/03/20 08:31 Magnesium Hydroxide (Mom) 30 ml DAILYPRN PRN ORAL Constipation 02/28/20 17:45 03/29/20 17:44 Morphine Sulfate (Morphine Sulfate) 1 mg Q3H PRN IVP For Pain 02/28/20 17:45 03/06/20 17:44 Multivitamins (Multivitamins W/ Minerals 15ml Liquid) 15 ml DAILY GT 03/01/20 09:00 03/31/20 08:59 03/03/20 08:30 Olanzapine (ZyPREXA) 2.5 mg DAILY ORAL 03/03/20 09:00 04/17/20 08:59 03/03/20 08:30 Olanzapine (ZyPREXA) 5 mg BEDTIME ORAL 03/02/20 21:00 04/16/20 20:59 03/02/20 21:22 Ondansetron HCl (Zofran) 4 mg Q6H PRN IVP Nausea & Vomiting 02/28/20 17:45 03/29/20 17:44 Sodium Hypochlorite (Dakin's Quarter Strength) 1 applic DAILY TOPIC 03/01/20 09:00 03/31/20 08:59 03/03/20 08:31 Sodium Phosphate (Fleet's Sodium Phosl Enema) 133 ml DAILYPRN PRN RECTAL Constipation 02/28/20 17:45 03/29/20 17:44 Vancomycin HCl (Vanco rx to dose) 1 ea DAILY PRN MISC Per rx protocol 02/28/20 17:45 03/29/20 17:44 Zinc Sulfate (Zinc Sulfate) 220 mg DAILY ORAL 03/01/20 09:00 05/30/20 08:59 03/03/20 08:31 Ana Paula Mccord MD Mar 03, 2020 10:59
[2020-03-03 12:00] VITALS: BP 138/78
--- NOTE | 2020-03-03 12:03 | NUR ---
CASE MANAGEMENT:REVIEW 03/01/2020 SI;PSEUDOMONAS UTI. ENDOCARDITIS. COVID-19 RULE OUT. 98.4 86 20 127/75 93% ON RA WBC 11.1 H/H 8.8/27.8 BUN 25 CR 1.6 IS;ZINC SULFATE PO QD VITAMIN C PO BID IVF D5W @ 100 ML/HR LOVENOX SUBQ Q24 HRS PEPCID PO QD ZOSYN IV Q8 HRS MED SURG STATUS DCP;FROM [facility] CASE MANAGEMENT:REVIEW 03/02/2020 SI;PSEUDOMONAS UTI. ENDOCARDITIS. COVID-19 RULE OUT. 98.5 93 20 136/84 97% ON RA NO LABS AVAILABLE IS;ZINC SULFATE PO QD VITAMIN C PO BID IVF D5W @ 100 ML/HR LOVENOX SUBQ Q24 HRS PEPCID PO QD ZOSYN IV Q8 HRS VANCOMYCIN IV ONCE CEFEPIME IV Q8 HRS MED SURG STATUS DCP;FROM [facility] CASE MANAGEMENT:REVIEW 03/03/2020 SI;PSEUDOMONAS UTI. ENDOCARDITIS. COVID-19 RULE OUT. 96.4 83 20 144/83 93% ON RA NO LABS AVAILABLE IS;ZINC SULFATE PO QD VITAMIN C PO BID IVF D5W @ 100 ML/HR LOVENOX SUBQ Q24 HRS PEPCID PO QDCEFEPIME IV Q12 HRS ZYPREXA PO QD MED SURG STATUS DCP;FROM [facility] PLAN;SECOND COVID-19 SWAB TODAY - RESULTS PENDING
--- NOTE | 2020-03-03 13:48 | NUR ---
NURSE NOTES: Spoke with Dr. Angel, patient needs to be re-swabbed for Covid-19 as nursing facility will not accept patient without another swab result. Specimen collected and sent down to lab. Daughter notified about second swab specimen sent.
[2020-03-03 16:00] VITALS: BP 125/89
--- NOTE | 2020-03-03 19:25 | NUR ---
HAND-OFF: Report given to Valery MURRAY.
--- NOTE | 2020-03-03 19:45 | NUR ---
NURSE NOTES: Received patient in bed, patient is alert/oriented x1, confused, disoriented,on room air, regular diet, able to swallow. IV site is clean dry and intact, condom catheter is on, secured and draining well. Bilateral non behavioral restraints are on, patient is monitored closely for comfort and safety. Call light is within reach, bed is lowered, locked, alarm is on.
[2020-03-03 20:00] VITALS: BP 127/74
[2020-03-03] MEDS: Enoxaparin 40mg Inj SUBQ SCH (20:45)
[2020-03-03] MEDS ORDERED: Colistin 150mg vial IVP SCH (21:00)
[2020-03-04] VITALS: BP 124/78
[2020-03-04] MEDS ORDERED: OLANZapine 2.5mg tab ORAL PRN
[2020-03-04] MEDS: D51/2NS 1000ml IV SCH ×3 (03:18→23:00)
--- NOTE | 2020-03-04 04:00 | Progress Note ---
DATE: 02/28/2020 HISTORY OF PRESENT ILLNESS: The patient is in bed, calm, manageable. Per the nurse, Vandana, the patient was manageable the whole day. Patient's COVID came back negative and is being tested again. MENTAL STATUS EXAMINATION: Alert. Disoriented. Mood is neutral. Affect is flat. Thought process, disorganized. Thought content, no suicidal or homicidal ideation. ASSESSMENT: Dementia with behavior disturbance. PLAN: 1. Continue Zyprexa 5 mg at bedtime. 2. 2.5 mg p.r.n. 3. Discussed with the nurse. William Lopez M.D. DR: He JOB#: [id number] CC: JAVID
[2020-03-04 04:08] VITALS: BP 127/78
--- NOTE | 2020-03-04 07:00 | NUR ---
NURSE NOTES: Received patient in bed asleep. No SOB or acute distress. Bilateral soft wrist restraints in place, pulses palpable, no skin issues noted on site. IV line intact and patent. Wound dressings intact. No condom catheter noted. HOB elevated. Bed locked in lowest position. Call light within reach. Will continue plan of care.
[2020-03-04 07:03] LABS: BASOPHILS % (AUTO) 0.3 % (0.0-2.0); EOSINOPHILS % (AUTO) 0.9 % (0.0-3.0); HEMATOCRIT 25.6 % (42.0-52.0); HEMOGLOBIN 8.2 G/DL (14.2-18.0); LYMPHOCYTES % (AUTO) 10.1 % (20.0-45.0); MEAN CORPUSCULAR VOLUME 68 FL (80-99); MONOCYTES % (AUTO) 5.4 % (1.0-10.0); NEUTROPHILS % (AUTO) 83.3 % (45.0-75.0); PLATELET COUNT 168 K/UL (150-450); RED BLOOD COUNT 3.74 M/UL (4.70-6.10); RED CELL DISTRIBUTION WIDTH 16.7 % (11.6-14.8); WHITE BLOOD COUNT 10.5 K/UL (4.8-10.8)
--- NOTE | 2020-03-04 07:15 | Progress Note ---
DATE: 03/03/2020 CARDIOLOGY PROGRESS NOTE SUBJECTIVE: The patient without respiratory distress, episodic agitation, status post placed packed red blood cell transfusion. Completed therapy for management of aortic valve endocarditis two days ago. PHYSICAL EXAMINATION: VITAL SIGNS: Blood pressure 144/83, pulse 80, respirations 18. LUNGS: Clear. CARDIAC: Regular with normal S1, S2 and a 1/4 diastolic decrescendo. ABDOMEN: Soft. EXTREMITIES: No edema. DIAGNOSTIC DATA: Echocardiogram reviewed. No vegetations. No pulmonary hypertension. PA systolic of 33, which is normal. [id number] aortic insufficiency. IMPRESSION: 1. Aortic valve endocarditis. 2. Mild aortic insufficiency. 3. No pulmonary hypertension. 4. Hypertensive heart disease. 5. Chronic diastolic congestive heart failure. 6. Urinary tract infection with Pseudomonas. 7. Permanent pacemaker. PLAN: Antimicrobials per Infectious Disease data consultant for urinary tract infection. No additional antibiotics recommended by ID for endocarditis. Blood cultures remain negative. No current indication for transesophageal echocardiogram unless the patient develops bacteremia or signs of hemodynamic compromise. Add afterload reduction for heart failure and aortic insuff. Yovany Durant M.D. DR: YARELIS JOB#: [id number] CC: JAVID
[2020-03-04 07:46] LABS: ANION GAP 12 mmol/L (5-15); BLOOD UREA NITROGEN 14 mg/dL (7-18); CALCIUM 8.6 MG/DL (8.5-10.1); CARBON DIOXIDE 22 MMOL/L (21-32); CHLORIDE 108 MMOL/L (98-107); CREATININE 1.3 MG/DL (0.55-1.30); POTASSIUM 3.6 MMOL/L (3.5-5.1); SODIUM 142 MMOL/L (136-145)
[2020-03-04 08:00] VITALS: BP 139/96
[2020-03-04] MEDS: Colistin 150mg vial IVP SCH ×2 (08:34→20:48)
[2020-03-04] MEDS: Zinc Sulfate 220mg cap ORAL SCH (08:34)
[2020-03-04] MEDS: Ascorbic Acid 500mg tab ORAL SCH ×2 (08:34→17:12)
[2020-03-04] MEDS: Multivitamins W/Minerals 15 ML UDC GT SCH (08:35)
[2020-03-04] MEDS: Dakin's 0.125% Soln (Quarter Strength) 16oz TOPIC SCH (08:55)
--- NOTE | 2020-03-04 11:15 | Infectious Diseases Prog Note ---
Assessment/Plan Assessment/Plan antibiotics : colistin, iv vancomycin A 1. pseudomonas UTI 2. hypertension 3. COVID 19 negative 4. recent aortic valve endocarditis P 1. continue colistin 1 more day 2. d/c iv vancomycin 3. will follow up cultures Subjective ROS Limited/Unobtainable: Yes Allergies: Coded Allergies: No Known Allergies (Unverified , 02/28/20) Objective Vital Signs Last 24 Hour Vital Signs Date Time Temp Pulse Resp B/P (MAP) Pulse Ox O2 Delivery O2 Flow Rate FiO2 03/04/20 09:00 Room Air 03/04/20 08:00 98.2 74 19 139/96 (110) 94 03/04/20 04:08 98.1 74 20 127/78 (94) 94 03/04/20 00:00 97.0 78 18 124/78 (93) 94 03/03/20 21:39 Room Air 03/03/20 20:00 98.7 74 22 127/74 (91) 97 03/03/20 17:15 Room Air 03/03/20 16:00 98.2 86 18 125/89 (101) 95 03/03/20 12:00 98.0 83 18 138/78 (98) 95 Height (Feet): 5 Height (Inches): 8.00 Weight (Pounds): 155 Laboratory Tests Test 03/04/20 06:00 White Blood Count 10.5 K/UL (4.8-10.8) Red Blood Count 3.74 M/UL (4.70-6.10) L Hemoglobin 8.2 G/DL (14.2-18.0) L Hematocrit 25.6 % (42.0-52.0) L Mean Corpuscular Volume 68 FL (80-99) L Mean Corpuscular Hemoglobin 22.0 PG (27.0-31.0) L Mean Corpuscular Hemoglobin Concent 32.2 G/DL (32.0-36.0) Red Cell Distribution Width 16.7 % (11.6-14.8) H Platelet Count 168 K/UL (150-450) Mean Platelet Volume 6.4 FL (6.5-10.1) L Neutrophils (%) (Auto) 83.3 % (45.0-75.0) H Lymphocytes (%) (Auto) 10.1 % (20.0-45.0) L Monocytes (%) (Auto) 5.4 % (1.0-10.0) Eosinophils (%) (Auto) 0.9 % (0.0-3.0) Basophils (%) (Auto) 0.3 % (0.0-2.0) Sodium Level 142 MMOL/L (136-145) Potassium Level 3.6 MMOL/L (3.5-5.1) Chloride Level 108 MMOL/L (98-107) H Carbon Dioxide Level 22 MMOL/L (21-32) Anion Gap 12 mmol/L (5-15) Blood Urea Nitrogen 14 mg/dL (7-18) Creatinine 1.3 MG/DL (0.55-1.30) Estimat Glomerular Filtration Rate > 60 mL/min (>60) Glucose Level 67 MG/DL (74-106) L Calcium Level 8.6 MG/DL (8.5-10.1) Pro-B-Type Natriuretic Peptide 2828 pg/mL (0-125) H Current Medications Medications (Trade) Dose Ordered Sig/Ramiro Route PRN Reason Start Time Stop Time Status Last Admin Dose Admin Acetaminophen (Tylenol) 650 mg Q4H PRN ORAL Mild Pain (Pain Scale 1-3) 02/28/20 17:45 03/29/20 17:44 02/29/20 06:24 Ascorbic Acid (Vitamin C) 500 mg TWICE A DAY ORAL 02/29/20 18:00 03/30/20 17:59 03/04/20 08:34 Bisacodyl (Dulcolax) 10 mg DAILYPRN PRN ORAL Constipation 02/28/20 18:00 05/28/20 17:44 Colistimethate Sodium (Colistin) 75 mg EVERY 12 HOURS IVP 03/04/20 09:00 03/11/20 08:59 03/04/20 08:34 Dextrose (Dextrose 50%) 25 ml Q30M PRN IV Hypoglycemia 02/28/20 17:45 05/28/20 17:44 Dextrose (Dextrose 50%) 50 ml Q30M PRN IV Hypoglycemia 02/28/20 17:45 05/28/20 17:44 Dextrose/Sodium Chloride 1,000 ml @ 100 mls/hr Q10H IV 02/29/20 19:00 03/30/20 18:59 03/04/20 03:18 Enoxaparin Sodium (Lovenox) 40 mg Q24H SUBQ 02/28/20 21:00 05/28/20 20:59 03/03/20 20:45 Famotidine (Pepcid) 40 mg DAILY ORAL 02/29/20 09:00 05/29/20 08:59 03/04/20 08:35 Magnesium Hydroxide (Mom) 30 ml DAILYPRN PRN ORAL Constipation 02/28/20 17:45 03/29/20 17:44 Morphine Sulfate (Morphine Sulfate) 1 mg Q3H PRN IVP For Pain 02/28/20 17:45 03/06/20 17:44 Multivitamins (Multivitamins W/ Minerals 15ml Liquid) 15 ml DAILY GT 03/01/20 09:00 03/31/20 08:59 03/04/20 08:35 Olanzapine (ZyPREXA) 2.5 mg EVERY 6 HOURS PRN ORAL agitation 03/04/20 00:00 04/18/20 00:00 Olanzapine (ZyPREXA) 5 mg BEDTIME ORAL 03/02/20 21:00 04/16/20 20:59 03/03/20 20:44 Ondansetron HCl (Zofran) 4 mg Q6H PRN IVP Nausea & Vomiting 02/28/20 17:45 03/29/20 17:44 Sodium Hypochlorite (Dakin's Quarter Strength) 1 applic DAILY TOPIC 03/01/20 09:00 03/31/20 08:59 03/04/20 08:55 Sodium Phosphate (Fleet's Sodium Phosl Enema) 133 ml DAILYPRN PRN RECTAL Constipation 02/28/20 17:45 03/29/20 17:44 Vancomycin HCl (Vanco rx to dose) 1 ea DAILY PRN MISC Per rx protocol 02/28/20 17:45 03/29/20 17:44 Zinc Sulfate (Zinc Sulfate) 220 mg DAILY ORAL 03/01/20 09:00 05/30/20 08:59 03/04/20 08:34 Ana Paula Mccord MD Mar 04, 2020 11:15
--- NOTE | 2020-03-04 11:31 | Pulmonology Progress Note ---
Assessment/Plan Assessment/Plan IMPRESSION: 1. Endocarditis, on antibiotics. 2. Acute anemia, status post PRBC. 3. Ruled out COVID-19 x1. Second swab needed; will discuss with ID 4. Agitation; seen by psych DISCUSSION: Continue current medications and care. The patient has a Odonnell catheter in place. The patient has been found to have urine positive for MDR. Consulted ID. I will continue to follow carefully. Discharge planning back to long-term facility once ready. May need ASHELY to confirm resolution of endocarditis; will discuss with cardiology Feliciano Angel M.D. Subjective Interval Events: None new; seen by ID; second pcr pending Constitutional: Reports: no symptoms HEENT: Repors: no symptoms Respiratory: Reports: no symptoms Cardiovascular: Reports: no symptoms Gastrointestinal/Abdominal: Reports: no symptoms Genitourinary: Reports: no symptoms Allergies: Coded Allergies: No Known Allergies (Unverified , 02/28/20) Objective Last 24 Hour Vital Signs Date Time Temp Pulse Resp B/P (MAP) Pulse Ox O2 Delivery O2 Flow Rate FiO2 03/04/20 09:00 Room Air 03/04/20 08:00 98.2 74 19 139/96 (110) 94 03/04/20 04:08 98.1 74 20 127/78 (94) 94 03/04/20 00:00 97.0 78 18 124/78 (93) 94 03/03/20 21:39 Room Air 03/03/20 20:00 98.7 74 22 127/74 (91) 97 03/03/20 17:15 Room Air 03/03/20 16:00 98.2 86 18 125/89 (101) 95 03/03/20 12:00 98.0 83 18 138/78 (98) 95 Intake and Output 03/03/20 03/04/20 19:00 07:00 Intake Total 1210 ml Output Total 900 ml 600 ml Balance 310 ml -600 ml IV Total 1210 ml Output Urine Total 900 ml 600 ml # Bowel Movements 1 General Appearance: no acute distress HEENT: normocephalic Respiratory/Chest: chest wall non-tender, lungs clear Cardiovascular: normal peripheral pulses Abdomen: normal bowel sounds Laboratory Tests 03/04/20 06:00: White Blood Count 10.5, Red Blood Count 3.74L, Hemoglobin 8.2L, Hematocrit 25.6L , Mean Corpuscular Volume 68L, Mean Corpuscular Hemoglobin 22.0L, Mean Corpuscular Hemoglobin Concent 32.2, Red Cell Distribution Width 16.7H, Platelet Count 168, Mean Platelet Volume 6.4L, Neutrophils (%) (Auto) 83.3H, Lymphocytes (%) (Auto) 10.1L, Monocytes (%) (Auto) 5.4, Eosinophils (%) (Auto) 0.9, Basophils (%) (Auto) 0.3, Sodium Level 142, Potassium Level 3.6, Chloride Level 108H, Carbon Dioxide Level 22, Anion Gap 12, Blood Urea Nitrogen 14, Creatinine 1.3, Estimat Glomerular Filtration Rate > 60, Glucose Level 67L, Calcium Level 8.6, Pro-B-Type Natriuretic Peptide 2828H Current Medications Medications (Trade) Dose Ordered Sig/Ramiro Route PRN Reason Start Time Stop Time Status Last Admin Dose Admin Acetaminophen (Tylenol) 650 mg Q4H PRN ORAL Mild Pain (Pain Scale 1-3) 02/28/20 17:45 03/29/20 17:44 02/29/20 06:24 Ascorbic Acid (Vitamin C) 500 mg TWICE A DAY ORAL 02/29/20 18:00 03/30/20 17:59 03/04/20 08:34 Bisacodyl (Dulcolax) 10 mg DAILYPRN PRN ORAL Constipation 02/28/20 18:00 05/28/20 17:44 Colistimethate Sodium (Colistin) 75 mg EVERY 12 HOURS IVP 03/04/20 09:00 03/11/20 08:59 03/04/20 08:34 Dextrose (Dextrose 50%) 25 ml Q30M PRN IV Hypoglycemia 02/28/20 17:45 05/28/20 17:44 Dextrose (Dextrose 50%) 50 ml Q30M PRN IV Hypoglycemia 02/28/20 17:45 05/28/20 17:44 Dextrose/Sodium Chloride 1,000 ml @ 100 mls/hr Q10H IV 02/29/20 19:00 03/30/20 18:59 03/04/20 03:18 Enoxaparin Sodium (Lovenox) 40 mg Q24H SUBQ 02/28/20 21:00 05/28/20 20:59 03/03/20 20:45 Famotidine (Pepcid) 40 mg DAILY ORAL 02/29/20 09:00 05/29/20 08:59 03/04/20 08:35 Magnesium Hydroxide (Mom) 30 ml DAILYPRN PRN ORAL Constipation 02/28/20 17:45 03/29/20 17:44 Morphine Sulfate (Morphine Sulfate) 1 mg Q3H PRN IVP For Pain 02/28/20 17:45 03/06/20 17:44 Multivitamins (Multivitamins W/ Minerals 15ml Liquid) 15 ml DAILY GT 03/01/20 09:00 03/31/20 08:59 03/04/20 08:35 Olanzapine (ZyPREXA) 2.5 mg EVERY 6 HOURS PRN ORAL agitation 03/04/20 00:00 04/18/20 00:00 Olanzapine (ZyPREXA) 5 mg BEDTIME ORAL 03/02/20 21:00 04/16/20 20:59 03/03/20 20:44 Ondansetron HCl (Zofran) 4 mg Q6H PRN IVP Nausea & Vomiting 02/28/20 17:45 03/29/20 17:44 Sodium Hypochlorite (Dakin's Quarter Strength) 1 applic DAILY TOPIC 03/01/20 09:00 03/31/20 08:59 03/04/20 08:55 Sodium Phosphate (Fleet's Sodium Phosl Enema) 133 ml DAILYPRN PRN RECTAL Constipation 02/28/20 17:45 03/29/20 17:44 Zinc Sulfate (Zinc Sulfate) 220 mg DAILY ORAL 03/01/20 09:00 05/30/20 08:59 03/04/20 08:34 Feliciano Angel MD Mar 04, 2020 11:31
[2020-03-04 12:00] VITALS: BP 131/85
--- NOTE | 2020-03-04 13:22 | NUR ---
CASE MANAGEMENT:REVIEW SI;PSEUDOMONAS UTI. ENDOCARDITIS. COVID-19 RULE OUT ~ NOT DETECTED 02/28/20 98.2 78 22 139/96 94% ON RA H/H 8.2/25.6 BG 67 BNP 2828 IS;COLISTIN IV Q12 HRS ZINC PO QD VITAMIN C PO BID IVF DW5 @ 100 ML/HR LOVENOX SUBQ Q24 HRS MED SURG STATUS DCP;FROM [facility] PLAN;REPEAT COVID-19 TESTING (03/03/2020 RESULTS PENDING)
[2020-03-04 16:00] VITALS: BP 114/70
--- NOTE | 2020-03-04 19:31 | NUR ---
HAND-OFF: Report given to di.
[2020-03-04 20:00] VITALS: BP 103/65
[2020-03-04] MEDS: Enoxaparin 40mg Inj SUBQ SCH (20:20)
--- NOTE | 2020-03-04 22:16 | Surgery Progress Note ---
Surgery Progress Note Subjective Symptoms: improved Objective Last 24 Hour Vital Signs Date Time Temp Pulse Resp B/P (MAP) Pulse Ox O2 Delivery O2 Flow Rate FiO2 03/04/20 20:00 97.4 96 19 103/65 (78) 94 03/04/20 16:00 97.8 97 19 114/70 (85) 97 03/04/20 12:00 97.3 74 18 131/85 (100) 97 03/04/20 09:00 Room Air 03/04/20 08:00 98.2 74 19 139/96 (110) 94 03/04/20 04:08 98.1 74 20 127/78 (94) 94 03/04/20 00:00 97.0 78 18 124/78 (93) 94 I&O Intake and Output 03/03/20 03/04/20 19:00 07:00 Intake Total 1210 ml Output Total 900 ml 600 ml Balance 310 ml -600 ml IV Total 1210 ml Output Urine Total 900 ml 600 ml # Bowel Movements 1 Dressing: saturated Wound: other Drains: other Cardiovascular: RSR Respiratory: decreased breath sounds Abdomen: soft, non-tender, present bowel sounds Extremities: no tenderness, no cyanosis Laboratory Tests Test 03/04/20 06:00 White Blood Count 10.5 K/UL (4.8-10.8) Red Blood Count 3.74 M/UL (4.70-6.10) L Hemoglobin 8.2 G/DL (14.2-18.0) L Hematocrit 25.6 % (42.0-52.0) L Mean Corpuscular Volume 68 FL (80-99) L Mean Corpuscular Hemoglobin 22.0 PG (27.0-31.0) L Mean Corpuscular Hemoglobin Concent 32.2 G/DL (32.0-36.0) Red Cell Distribution Width 16.7 % (11.6-14.8) H Platelet Count 168 K/UL (150-450) Mean Platelet Volume 6.4 FL (6.5-10.1) L Neutrophils (%) (Auto) 83.3 % (45.0-75.0) H Lymphocytes (%) (Auto) 10.1 % (20.0-45.0) L Monocytes (%) (Auto) 5.4 % (1.0-10.0) Eosinophils (%) (Auto) 0.9 % (0.0-3.0) Basophils (%) (Auto) 0.3 % (0.0-2.0) Sodium Level 142 MMOL/L (136-145) Potassium Level 3.6 MMOL/L (3.5-5.1) Chloride Level 108 MMOL/L (98-107) H Carbon Dioxide Level 22 MMOL/L (21-32) Anion Gap 12 mmol/L (5-15) Blood Urea Nitrogen 14 mg/dL (7-18) Creatinine 1.3 MG/DL (0.55-1.30) Estimat Glomerular Filtration Rate > 60 mL/min (>60) Glucose Level 67 MG/DL (74-106) L Calcium Level 8.6 MG/DL (8.5-10.1) Pro-B-Type Natriuretic Peptide 2828 pg/mL (0-125) H Plan Problems: (1) Right lower lobe pneumonia Assessment & Plan: Findings: There is a moderate size right pleural effusion. Opacity at the right lung base may be secondary to the pleural fluid, but infiltrate also likely. The heart is enlarged. There is a left chest pacemaker. The left lung and pleural space are clear. The right upper lobe is clear. Impression: Right basilar moderate pleural effusion and likely parenchymal consolidation Cardiomegaly Pacemaker cont abx pending micro (2) Failure to thrive Assessment & Plan: DAILY ESTIMATED NEEDS: Needs based on Wounds/ 70.5kg 25-30 kcals/kg 2612-9234 total kcals 1.25-2 g protein/kg 88-141 g total protein 25-30 mL/kg 1237-0887 total fluid mLs NUTRITION DIAGNOSIS: Increased kcal/prot/micronutrients needs R/T wound healing as evidenced by pt admitted w/ multiple advanced wounds, pending evaluation. CURRENT DIET:REGULAR PO DIET RECOMMENDATIONS: REGULAR/ texture as tolerated ADDITIONAL RECOMMENDATIONS: * Calibrated bedscale wt for accurate CBW * Consider Calorie Count x 48 hrs- FTT dx * Add Ensure Enlive BID for now, monitor need to increase * Wound healing: add MVI w/ mineral 1 tab QD, Vit C 500mg BID add ZnSO4 220mg QD x 10 days add David 1pkt BID (3) UTI (urinary tract infection) (4) Decubitus skin ulcer Assessment & Plan: Pt presented on admission with multiple pressure injuries. 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 100% slough at base of wound with marginal erythema along borders.` Unstageable pressure injury lateral R 1st metatarsal and L Hallux. Base of wound is 100% necrotic. Borders and periwound are callused. Unstageable Pressure Injury R heel. Base of wound is 100% necrotic with callused borders.In close proximity but extending into medial aspect of heel is a DTPI. Base of wound is purple with maroon borders. Dry cracked skin periwound. DTPI Plantar L heel. Unstageable pressure L lateral malleolus. 100% yellow slough with surrounding dry black borders. No exudate noted. Proximally to L malleolus Elongated area that is maroon in color. will likely plan for debridement of sacral wound as could use given how large and ill it is Tx.Plan: Cleanse Sacral wound with Dakin's 0.125% ashleigh. Apply Dakin's moistened Gauze to wound. Cover with Optifoam drsg Daily and prn. Apply Betadine to R foot wounds. Cover with ABD Pads and wrap with Kerlix Every 3 days and prn. Apply Betadine to L foot Wounds. Cover with ABD Pads and Wrap with Kerlix every 3 days and prn. APM/BHAVESH Mattress overlay. Reposition at least every 2hours or as tolerated. Off-load heels with Pillow. Yao Mccarty Mar 04, 2020 22:16
--- NOTE | 2020-03-04 22:45 | Progress Note ---
DATE: 03/04/2020 SUBJECTIVE: The patient is more manageable, less agitated. Decreased agitation, behavior issues. MENTAL STATUS EXAMINATION: The patient is disoriented, confused. Mood is neutral. Affect is flat. Thought process, there is a paucity of thought content. Thought content, no suicidal or homicidal ideation. ASSESSMENT: Stable. PLAN: 1. We will continue current medications. 2. Provide the patient with reality orientation. William Lopez M.D. DR: Ashish JOB#: [id number] CC:
[2020-03-05] VITALS: BP 98/57
[2020-03-05 04:00] VITALS: BP 126/80
--- NOTE | 2020-03-05 04:05 | NUR ---
NURSE NOTES: Sacral dressing changed according to wound care order. Patient tolerated well.
--- NOTE | 2020-03-05 07:19 | NUR ---
HAND-OFF: Report given to Dev Padilla.
--- NOTE | 2020-03-05 07:47 | NUR ---
NURSE NOTES: received report from TERRI Lai. patient in bed. sleeping. no respiratory distress noted. no pain at this time. IV on right fore arm running d51/2ns. contact. droplet isolation for r/o covid. second result pending. bedbound. bed in the lowest position and locked. call light within reach. will continue to provide plan of care.
[2020-03-05 08:00] VITALS: BP 101/58
[2020-03-05] MEDS: Multivitamins W/Minerals 15 ML UDC GT SCH (08:57)
[2020-03-05] MEDS: Zinc Sulfate 220mg cap ORAL SCH (08:57)
[2020-03-05] MEDS: Ascorbic Acid 500mg tab ORAL SCH ×2 (08:57→17:33)
[2020-03-05] MEDS: Colistin 150mg vial IVP SCH ×2 (08:58→21:26)
[2020-03-05] MEDS: Dakin's 0.125% Soln (Quarter Strength) 16oz TOPIC SCH (08:58)
[2020-03-05] MEDS: D51/2NS 1000ml IV SCH ×2 (08:59→19:02)
[2020-03-05 09:05] LABS: HEMATOCRIT 24.2 % (42.0-52.0); HEMOGLOBIN 7.7 G/DL (14.2-18.0); MEAN CORPUSCULAR VOLUME 69 FL (80-99); PLATELET COUNT 175 K/UL (150-450); RED BLOOD COUNT 3.51 M/UL (4.70-6.10); RED CELL DISTRIBUTION WIDTH 17.1 % (11.6-14.8); WHITE BLOOD COUNT 12.3 K/UL (4.8-10.8)
--- NOTE | 2020-03-05 09:15 | Pulmonology Progress Note ---
Assessment/Plan Assessment/Plan IMPRESSION: 1. Endocarditis, on antibiotics. 2. Acute anemia, status post PRBC. 3. Ruled out COVID-19 x1. Second swab needed; will discuss with ID 4. Agitation; seen by psych 5. UTI, MDR DISCUSSION: Continue current medications and care. The patient has a Odonnell catheter in place. The patient has been found to have urine positive for MDR. Consulted and seen by ID. I will continue to follow carefully. Discharge planning back to assisted facility once ready. Does not need ASHLEY to confirm resolution of endocarditis; discussed with cardiology Feliciano Angel M.D. Subjective ROS Limited/Unobtainable: Yes Interval Events: None new; seen by ID; second pcr pending Constitutional: Reports: no symptoms HEENT: Repors: no symptoms Respiratory: Reports: no symptoms Cardiovascular: Reports: no symptoms Gastrointestinal/Abdominal: Reports: no symptoms Genitourinary: Reports: no symptoms Allergies: Coded Allergies: No Known Allergies (Unverified , 02/28/20) All Systems: reviewed and negative except above Objective Last 24 Hour Vital Signs Date Time Temp Pulse Resp B/P (MAP) Pulse Ox O2 Delivery O2 Flow Rate FiO2 03/05/20 08:57 74 101/58 03/05/20 08:00 97.7 74 20 101/58 (72) 94 03/05/20 04:00 97.6 97 19 126/80 (95) 94 03/05/20 00:00 98.0 92 19 98/57 (71) 94 03/04/20 22:26 Room Air 03/04/20 20:00 97.4 96 19 103/65 (78) 94 03/04/20 16:00 97.8 97 19 114/70 (85) 97 03/04/20 12:00 97.3 74 18 131/85 (100) 97 Intake and Output 03/04/20 03/05/20 19:00 07:00 Intake Total 1460 ml Balance 1460 ml Intake Oral 360 ml IV Total 1100 ml # Voids 3 2 # Bowel Movements 3 General Appearance: no acute distress HEENT: normocephalic Respiratory/Chest: chest wall non-tender, lungs clear Cardiovascular: normal peripheral pulses Abdomen: normal bowel sounds Neurologic/Psychiatric: alert, responsive Laboratory Tests 03/05/20 07:40: White Blood Count [Pending], Red Blood Count [Pending], Hemoglobin [Pending], Hematocrit [Pending], Mean Corpuscular Volume [Pending], Mean Corpuscular Hemoglobin [Pending], Mean Corpuscular Hemoglobin Concent [Pending], Red Cell Distribution Width [Pending], Platelet Count [Pending], Mean Platelet Volume [ Pending], Neutrophils (%) (Auto) [Pending], Lymphocytes (%) (Auto) [Pending], Monocytes (%) (Auto) [Pending], Eosinophils (%) (Auto) [Pending], Basophils (%) (Auto) [Pending], Sodium Level [Pending], Potassium Level [Pending], Chloride Level [Pending], Carbon Dioxide Level [Pending], Blood Urea Nitrogen [Pending], Creatinine [Pending], Estimat Glomerular Filtration Rate [Pending], Glucose Level [Pending], Calcium Level [Pending], Magnesium Level [Pending], Total Bilirubin [Pending], Aspartate Amino Transf (AST/SGOT) [Pending], Alanine Aminotransferase (ALT/SGPT) [Pending], Alkaline Phosphatase [Pending], Total Protein [Pending], Albumin [Pending], Globulin [Pending] Current Medications Medications (Trade) Dose Ordered Sig/Ramiro Route PRN Reason Start Time Stop Time Status Last Admin Dose Admin Acetaminophen (Tylenol) 650 mg Q4H PRN ORAL Mild Pain (Pain Scale 1-3) 02/28/20 17:45 03/29/20 17:44 02/29/20 06:24 Amlodipine Besylate (Norvasc) 2.5 mg DAILY ORAL 03/05/20 09:00 04/04/20 08:59 Ascorbic Acid (Vitamin C) 500 mg TWICE A DAY ORAL 02/29/20 18:00 03/30/20 17:59 03/05/20 08:57 Bisacodyl (Dulcolax) 10 mg DAILYPRN PRN ORAL Constipation 02/28/20 18:00 05/28/20 17:44 Colistimethate Sodium (Colistin) 75 mg EVERY 12 HOURS IVP 03/04/20 09:00 03/11/20 08:59 03/05/20 08:58 Dextrose (Dextrose 50%) 25 ml Q30M PRN IV Hypoglycemia 02/28/20 17:45 05/28/20 17:44 Dextrose (Dextrose 50%) 50 ml Q30M PRN IV Hypoglycemia 02/28/20 17:45 05/28/20 17:44 Dextrose/Sodium Chloride 1,000 ml @ 100 mls/hr Q10H IV 02/29/20 19:00 03/30/20 18:59 03/05/20 08:59 Enoxaparin Sodium (Lovenox) 40 mg Q24H SUBQ 02/28/20 21:00 05/28/20 20:59 03/04/20 20:20 Famotidine (Pepcid) 40 mg DAILY ORAL 02/29/20 09:00 05/29/20 08:59 03/05/20 08:57 Magnesium Hydroxide (Mom) 30 ml DAILYPRN PRN ORAL Constipation 02/28/20 17:45 03/29/20 17:44 Morphine Sulfate (Morphine Sulfate) 1 mg Q3H PRN IVP For Pain 02/28/20 17:45 03/06/20 17:44 Multivitamins (Multivitamins W/ Minerals 15ml Liquid) 15 ml DAILY GT 03/01/20 09:00 03/31/20 08:59 03/05/20 08:57 Olanzapine (ZyPREXA) 2.5 mg EVERY 6 HOURS PRN ORAL agitation 03/04/20 00:00 04/18/20 00:00 Olanzapine (ZyPREXA) 5 mg BEDTIME ORAL 03/02/20 21:00 04/16/20 20:59 03/04/20 20:23 Ondansetron HCl (Zofran) 4 mg Q6H PRN IVP Nausea & Vomiting 02/28/20 17:45 03/29/20 17:44 Sodium Hypochlorite (Dakin's Quarter Strength) 1 applic DAILY TOPIC 03/01/20 09:00 03/31/20 08:59 03/05/20 08:58 Sodium Phosphate (Fleet's Sodium Phosl Enema) 133 ml DAILYPRN PRN RECTAL Constipation 02/28/20 17:45 03/29/20 17:44 Zinc Sulfate (Zinc Sulfate) 220 mg DAILY ORAL 03/01/20 09:00 05/30/20 08:59 03/05/20 08:57 Feliciano Angel MD Mar 05, 2020 09:15
[2020-03-05 09:28] LABS: ALANINE AMINOTRANSFERASE 20 U/L (12-78); ALBUMIN 1.6 G/DL (3.4-5.0); ALBUMIN/GLOBULIN RATIO 0.3 (1.0-2.7); ALKALINE PHOSPHATASE 53 U/L (46-116); ANION GAP 12 mmol/L (5-15); ASPARTATE AMINO TRANSFERASE 23 U/L (15-37); BILIRUBIN,TOTAL 0.3 MG/DL (0.2-1.0); BLOOD UREA NITROGEN 15 mg/dL (7-18); CALCIUM 8.2 MG/DL (8.5-10.1); CARBON DIOXIDE 22 MMOL/L (21-32); CHLORIDE 108 MMOL/L (98-107); CREATININE 1.1 MG/DL (0.55-1.30); POTASSIUM 3.8 MMOL/L (3.5-5.1); SODIUM 142 MMOL/L (136-145)
--- NOTE | 2020-03-05 09:29 | Progress Note ---
DATE: 03/04/2020 CARDIOLOGY PROGRESS NOTE SUBJECTIVE: The patient remains afebrile. No shortness of breath or chest pain. No nausea or vomiting. PHYSICAL EXAMINATION: VITAL SIGNS: Blood pressure parameters stable at 127/78, heart rate 74, respiratory rate 20. LUNGS: Good breath sounds. No wheezing. CARDIAC: Regular rhythm and rate. Normal S1, S2 with 1/4 diastolic murmur at the base. EXTREMITIES: Lower extremity wounds are dressed. Without edema. LABORATORY DATA: White count 10.5, hemoglobin 8.2. Potassium 3.6. Pro-natriuretic peptide 2800. BUN 14 and creatinine 1.3. IMPRESSION: 1. Aortic valve endocarditis. 2. No recurring bacteremia. 3. Hypomagnesemia, status post repletion. 4. Urinary tract infection. 5. Lower extremity wounds. 6. Permanent pacemaker. PLAN: Recheck lab studies including magnesium level. No current indication for transesophageal echocardiogram. Taper IV fluids. Replace potassium and magnesium as needed. Yovany Durant M.D. DR: YARELIS JOB#: [id number] CC: JAVID
--- NOTE | 2020-03-05 10:28 | Surgery Progress Note ---
Surgery Progress Note Subjective Additional Comments afebrile, HD stable leukocytosis h/h noted no acute bleeding electrolytes being replaced Objective Last 24 Hour Vital Signs Date Time Temp Pulse Resp B/P (MAP) Pulse Ox O2 Delivery O2 Flow Rate FiO2 03/05/20 08:57 74 101/58 03/05/20 08:00 97.7 74 20 101/58 (72) 94 03/05/20 04:00 97.6 97 19 126/80 (95) 94 03/05/20 00:00 98.0 92 19 98/57 (71) 94 03/04/20 22:26 Room Air 03/04/20 20:00 97.4 96 19 103/65 (78) 94 03/04/20 16:00 97.8 97 19 114/70 (85) 97 03/04/20 12:00 97.3 74 18 131/85 (100) 97 I&O Intake and Output 03/04/20 03/05/20 19:00 07:00 Intake Total 1460 ml Balance 1460 ml Intake Oral 360 ml IV Total 1100 ml # Voids 3 2 # Bowel Movements 3 Dressing: other Wound: other Drains: other Cardiovascular: RSR Respiratory: decreased breath sounds Abdomen: soft, non-tender, present bowel sounds Extremities: no tenderness, no cyanosis Laboratory Tests Test 03/05/20 07:40 White Blood Count 12.3 K/UL (4.8-10.8) H Red Blood Count 3.51 M/UL (4.70-6.10) L Hemoglobin 7.7 G/DL (14.2-18.0) L Hematocrit 24.2 % (42.0-52.0) L Mean Corpuscular Volume 69 FL (80-99) L Mean Corpuscular Hemoglobin 22.1 PG (27.0-31.0) L Mean Corpuscular Hemoglobin Concent 32.0 G/DL (32.0-36.0) Red Cell Distribution Width 17.1 % (11.6-14.8) H Platelet Count 175 K/UL (150-450) Mean Platelet Volume 6.5 FL (6.5-10.1) Neutrophils (%) (Auto) % (45.0-75.0) Lymphocytes (%) (Auto) % (20.0-45.0) Monocytes (%) (Auto) % (1.0-10.0) Eosinophils (%) (Auto) % (0.0-3.0) Basophils (%) (Auto) % (0.0-2.0) Neutrophils % (Manual) Pending Lymphocytes % (Manual) Pending Platelet Estimate Pending Platelet Morphology Pending Sodium Level 142 MMOL/L (136-145) Potassium Level 3.8 MMOL/L (3.5-5.1) Chloride Level 108 MMOL/L (98-107) H Carbon Dioxide Level 22 MMOL/L (21-32) Anion Gap 12 mmol/L (5-15) Blood Urea Nitrogen 15 mg/dL (7-18) Creatinine 1.1 MG/DL (0.55-1.30) Estimat Glomerular Filtration Rate > 60 mL/min (>60) Glucose Level 53 MG/DL (74-106) L Calcium Level 8.2 MG/DL (8.5-10.1) L Magnesium Level 1.6 MG/DL (1.8-2.4) L Total Bilirubin 0.3 MG/DL (0.2-1.0) Aspartate Amino Transf (AST/SGOT) 23 U/L (15-37) Alanine Aminotransferase (ALT/SGPT) 20 U/L (12-78) Alkaline Phosphatase 53 U/L (46-116) Total Protein 6.2 G/DL (6.4-8.2) L Albumin 1.6 G/DL (3.4-5.0) L Globulin 4.6 g/dL Albumin/Globulin Ratio 0.3 (1.0-2.7) L Plan Problems: (1) Right lower lobe pneumonia Assessment & Plan: Findings: There is a moderate size right pleural effusion. Opacity at the right lung base may be secondary to the pleural fluid, but infiltrate also likely. The heart is enlarged. There is a left chest pacemaker. The left lung and pleural space are clear. The right upper lobe is clear. Impression: Right basilar moderate pleural effusion and likely parenchymal consolidation Cardiomegaly Pacemaker cont abx pending micro (2) Failure to thrive Assessment & Plan: DAILY ESTIMATED NEEDS: Needs based on Wounds/ 70.5kg 25-30 kcals/kg 8080-2805 total kcals 1.25-2 g protein/kg 88-141 g total protein 25-30 mL/kg 4433-3062 total fluid mLs NUTRITION DIAGNOSIS: Increased kcal/prot/micronutrients needs R/T wound healing as evidenced by pt admitted w/ multiple advanced wounds, pending evaluation. CURRENT DIET:REGULAR PO DIET RECOMMENDATIONS: REGULAR/ texture as tolerated ADDITIONAL RECOMMENDATIONS: * Calibrated bedscale wt for accurate CBW * Consider Calorie Count x 48 hrs- FTT dx * Add Ensure Enlive BID for now, monitor need to increase * Wound healing: add MVI w/ mineral 1 tab QD, Vit C 500mg BID add ZnSO4 220mg QD x 10 days add David 1pkt BID (3) UTI (urinary tract infection) (4) Decubitus skin ulcer Assessment & Plan: Pt presented on admission with multiple pressure injuries. 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 100% slough at base of wound with marginal erythema along borders.` Unstageable pressure injury lateral R 1st metatarsal and L Hallux. Base of wound is 100% necrotic. Borders and periwound are callused. Unstageable Pressure Injury R heel. Base of wound is 100% necrotic with callused borders.In close proximity but extending into medial aspect of heel is a DTPI. Base of wound is purple with maroon borders. Dry cracked skin periwound. DTPI Plantar L heel. Unstageable pressure L lateral malleolus. 100% yellow slough with surrounding dry black borders. No exudate noted. Proximally to L malleolus Elongated area that is maroon in color. will likely plan for debridement of sacral wound as could use given how large and ill it is Tx.Plan: Cleanse Sacral wound with Dakin's 0.125% ashleigh. Apply Dakin's moistened Gauze to wound. Cover with Optifoam drsg Daily and prn. Apply Betadine to R foot wounds. Cover with ABD Pads and wrap with Kerlix Every 3 days and prn. Apply Betadine to L foot Wounds. Cover with ABD Pads and Wrap with Kerlix every 3 days and prn. APM/BHAVESH Mattress overlay. Reposition at least every 2hours or as tolerated. Off-load heels with Pillow. Yao Mccarty Mar 05, 2020 10:28
--- NOTE | 2020-03-05 10:30 | Infectious Diseases Prog Note ---
Assessment/Plan Assessment/Plan antibiotics : colistin, iv vancomycin A 1. pseudomonas UTI 2. hypertension 3. COVID 19 negative 4. recent aortic valve endocarditis P 1. d/c colistin 2. observe off antibiotics 3. will follow up cultures Subjective ROS Limited/Unobtainable: Yes Allergies: Coded Allergies: No Known Allergies (Unverified , 02/28/20) Objective Vital Signs Last 24 Hour Vital Signs Date Time Temp Pulse Resp B/P (MAP) Pulse Ox O2 Delivery O2 Flow Rate FiO2 03/05/20 08:57 74 101/58 03/05/20 08:00 97.7 74 20 101/58 (72) 94 03/05/20 04:00 97.6 97 19 126/80 (95) 94 03/05/20 00:00 98.0 92 19 98/57 (71) 94 03/04/20 22:26 Room Air 03/04/20 20:00 97.4 96 19 103/65 (78) 94 03/04/20 16:00 97.8 97 19 114/70 (85) 97 03/04/20 12:00 97.3 74 18 131/85 (100) 97 Height (Feet): 5 Height (Inches): 8.00 Weight (Pounds): 151 Respiratory/Chest: lungs clear Cardiovascular: normal rate, regular rhythm, no gallop/murmur Abdomen: soft, non tender Extremities: no edema Laboratory Tests Test 03/05/20 07:40 White Blood Count 12.3 K/UL (4.8-10.8) H Red Blood Count 3.51 M/UL (4.70-6.10) L Hemoglobin 7.7 G/DL (14.2-18.0) L Hematocrit 24.2 % (42.0-52.0) L Mean Corpuscular Volume 69 FL (80-99) L Mean Corpuscular Hemoglobin 22.1 PG (27.0-31.0) L Mean Corpuscular Hemoglobin Concent 32.0 G/DL (32.0-36.0) Red Cell Distribution Width 17.1 % (11.6-14.8) H Platelet Count 175 K/UL (150-450) Mean Platelet Volume 6.5 FL (6.5-10.1) Neutrophils (%) (Auto) % (45.0-75.0) Lymphocytes (%) (Auto) % (20.0-45.0) Monocytes (%) (Auto) % (1.0-10.0) Eosinophils (%) (Auto) % (0.0-3.0) Basophils (%) (Auto) % (0.0-2.0) Neutrophils % (Manual) Pending Lymphocytes % (Manual) Pending Platelet Estimate Pending Platelet Morphology Pending Sodium Level 142 MMOL/L (136-145) Potassium Level 3.8 MMOL/L (3.5-5.1) Chloride Level 108 MMOL/L (98-107) H Carbon Dioxide Level 22 MMOL/L (21-32) Anion Gap 12 mmol/L (5-15) Blood Urea Nitrogen 15 mg/dL (7-18) Creatinine 1.1 MG/DL (0.55-1.30) Estimat Glomerular Filtration Rate > 60 mL/min (>60) Glucose Level 53 MG/DL (74-106) L Calcium Level 8.2 MG/DL (8.5-10.1) L Magnesium Level 1.6 MG/DL (1.8-2.4) L Total Bilirubin 0.3 MG/DL (0.2-1.0) Aspartate Amino Transf (AST/SGOT) 23 U/L (15-37) Alanine Aminotransferase (ALT/SGPT) 20 U/L (12-78) Alkaline Phosphatase 53 U/L (46-116) Total Protein 6.2 G/DL (6.4-8.2) L Albumin 1.6 G/DL (3.4-5.0) L Globulin 4.6 g/dL Albumin/Globulin Ratio 0.3 (1.0-2.7) L Current Medications Medications (Trade) Dose Ordered Sig/Ramiro Route PRN Reason Start Time Stop Time Status Last Admin Dose Admin Acetaminophen (Tylenol) 650 mg Q4H PRN ORAL Mild Pain (Pain Scale 1-3) 02/28/20 17:45 03/29/20 17:44 02/29/20 06:24 Amlodipine Besylate (Norvasc) 2.5 mg DAILY ORAL 03/05/20 09:00 04/04/20 08:59 Ascorbic Acid (Vitamin C) 500 mg TWICE A DAY ORAL 02/29/20 18:00 03/30/20 17:59 03/05/20 08:57 Bisacodyl (Dulcolax) 10 mg DAILYPRN PRN ORAL Constipation 02/28/20 18:00 05/28/20 17:44 Colistimethate Sodium (Colistin) 75 mg EVERY 12 HOURS IVP 03/04/20 09:00 03/11/20 08:59 03/05/20 08:58 Dextrose (Dextrose 50%) 25 ml Q30M PRN IV Hypoglycemia 02/28/20 17:45 05/28/20 17:44 Dextrose (Dextrose 50%) 50 ml Q30M PRN IV Hypoglycemia 02/28/20 17:45 05/28/20 17:44 Dextrose/Sodium Chloride 1,000 ml @ 100 mls/hr Q10H IV 02/29/20 19:00 03/30/20 18:59 03/05/20 08:59 Enoxaparin Sodium (Lovenox) 40 mg Q24H SUBQ 02/28/20 21:00 05/28/20 20:59 03/04/20 20:20 Famotidine (Pepcid) 40 mg DAILY ORAL 02/29/20 09:00 05/29/20 08:59 03/05/20 08:57 Magnesium Hydroxide (Mom) 30 ml DAILYPRN PRN ORAL Constipation 02/28/20 17:45 03/29/20 17:44 Morphine Sulfate (Morphine Sulfate) 1 mg Q3H PRN IVP For Pain 02/28/20 17:45 03/06/20 17:44 Multivitamins (Multivitamins W/ Minerals 15ml Liquid) 15 ml DAILY GT 03/01/20 09:00 03/31/20 08:59 03/05/20 08:57 Olanzapine (ZyPREXA) 2.5 mg EVERY 6 HOURS PRN ORAL agitation 03/04/20 00:00 04/18/20 00:00 Olanzapine (ZyPREXA) 5 mg BEDTIME ORAL 03/02/20 21:00 04/16/20 20:59 03/04/20 20:23 Ondansetron HCl (Zofran) 4 mg Q6H PRN IVP Nausea & Vomiting 02/28/20 17:45 03/29/20 17:44 Sodium Hypochlorite (Dakin's Quarter Strength) 1 applic DAILY TOPIC 03/01/20 09:00 03/31/20 08:59 03/05/20 08:58 Sodium Phosphate (Fleet's Sodium Phosl Enema) 133 ml DAILYPRN PRN RECTAL Constipation 02/28/20 17:45 03/29/20 17:44 Zinc Sulfate (Zinc Sulfate) 220 mg DAILY ORAL 03/01/20 09:00 05/30/20 08:59 03/05/20 08:57 Ana Paula Mccord MD Mar 05, 2020 10:30
[2020-03-05 12:00] VITALS: BP 98/54
--- NOTE | 2020-03-05 12:36 | NUR ---
CASE MANAGEMENT:REVIEW SI;AORTIC ENDOCARDITIS. MDR UTI. COVID-19 RULE OUT - 02/28/2020 NOT DETECTED 98.0 98 20 95/54 94% ON RA WBC 12.3 H/H 7.7/24.2 BG 53 CA 8.2 MG 1.6 IS;COLISTIN IV Q12 HRS `IVF D5W @ 100 ML/HR VIT C PO BID ZINC SULFATE PO QD PEPCID PO QD LOVENOX SUBQ Q24 HRS MED SURG STATUS DCP;FROM [facility] PLAN;OBSERVE OFF ABX FOLLOW UP CULTURES
[2020-03-05 16:00] VITALS: BP 93/54
--- NOTE | 2020-03-05 17:17 | NUR ---
*-* INSURANCE *-* ALL CLINICALS AND REVIEWS HAVE BEEN FAXD TO: [facility] NCM:[place] P: [phone] F: [phone] (FAX CLINICALS HERE AND TO JESSE [phone]) & [facility]SE NCM:PARI P: [phone] F: [phone] [place] Orders: [id number]
--- NOTE | 2020-03-05 19:25 | NUR ---
HAND-OFF: Report given to TERRI Barakat.
--- NOTE | 2020-03-05 19:30 | NUR ---
NURSE NOTES: RECEIVED PATIENT FROM TERRI PEARCE. PATIENT IS AWAKE, AAOX2, ON ROOM AIR, NO ACUTE DISTRESS NOTED. WOUND DRESSINGS INTACT AND DRY. IV INTACT AND PATENT. BILATERAL SOFT WRIST RESTRAINTS PRESENT, NO REDNESS, PULSES PRESENT. PACEMAKER NOTED ON LEFT CHEST. BED IS LOCKED AND LOW, BED ALARMS NOTED, SIDE RAILS UPX2 AND CALL LIGHT IS WITHIN REACH. WILL CONTINUE TO MONITOR.
[2020-03-05 20:00] VITALS: BP 129/73
[2020-03-05] MEDS: Enoxaparin 40mg Inj SUBQ SCH (21:28)
[2020-03-06] VITALS (7 sets, daily range): BP systolic 102–138; BP diastolic 57–74
--- NOTE | 2020-03-06 00:15 | Progress Note ---
DATE: 02/28/2020 SUBJECTIVE: Patient is feeling better, calm. No behavior issues noted today. He is COVID negative and it is ruled out. Patient has no agitation today, calm, sleeping, arousable. MENTAL STATUS EXAMINATION: Patient is alert and disoriented. Mood is neutral. Affect is flat. Thought process is concrete. Thought content, no suicidal or homicidal ideation. Cognition is impaired. Insight and judgment non-existent. ASSESSMENT: Dementia with behavior disturbance. PLAN: 1. Continue the Zyprexa. 2. Discussed with the nurse. William Lopez M.D. DR: MERLIN JOB#: [id number] CC:
[2020-03-06] MEDS: D51/2NS 1000ml IV SCH ×2 (07:10→14:40)
--- NOTE | 2020-03-06 07:23 | NUR ---
NURSE NOTES: received report from TERRI Barakat. patient in bed, sleeping. no respiratory distress noted on room air. no facial grimacing noted. IV on RFA running 5d1/2ns@100. Droplet isolation r/o covid waiting 2nd test result. bed in the lowest position and locked. call light within reach. alarm on. will continue to provide plan of care.
--- NOTE | 2020-03-06 07:56 | NUR ---
HAND-OFF: Report given to TERRI PEARCE.
[2020-03-06] MEDS: Dakin's 0.125% Soln (Quarter Strength) 16oz TOPIC SCH (09:00)
[2020-03-06] MEDS: Multivitamins W/Minerals 15 ML UDC GT SCH (09:06)
[2020-03-06] MEDS: Zinc Sulfate 220mg cap ORAL SCH (09:06)
[2020-03-06] MEDS: Ascorbic Acid 500mg tab ORAL SCH ×2 (09:06→17:04)
--- NOTE | 2020-03-06 11:21 | NUR ---
CASE MANAGEMENT:REVIEW SI;ENDOCARDITIS. MDR UTI. COVID-19 NOT DETECTED (03/03/20 RESULT) 96.6 82 20 107/57 92% ON RA NO LABS AVAILABLE IS;IVF D5W @ 100 ML/HR ZINC SULFATE PO QD VIT C PO BID PEPCID PO QD LOVENOX SUBQ QD MED SURG STATUS DCP;[facility]
--- NOTE | 2020-03-06 13:09 | Infectious Diseases Prog Note ---
Assessment/Plan Assessment/Plan A 1. pseudomonas UTI treated 2. hypertension 3. COVID19 X 2 negative 4. recent aortic valve endocarditis P 1. observe off antibiotics Subjective ROS Limited/Unobtainable: No Constitutional: Reports: no symptoms Respiratory: Reports: no symptoms Gastrointestinal/Abdominal: Reports: no symptoms Genitourinary: Reports: no symptoms Allergies: Coded Allergies: No Known Allergies (Unverified , 02/28/20) Objective Vital Signs Last 24 Hour Vital Signs Date Time Temp Pulse Resp B/P (MAP) Pulse Ox O2 Delivery O2 Flow Rate FiO2 03/06/20 12:00 96.0 76 20 112/73 (86) 93 03/06/20 09:00 Room Air 03/06/20 09:00 82 107/64 03/06/20 08:00 96.4 82 18 107/64 (78) 92 03/06/20 04:00 97.5 82 17 109/57 (74) 96 03/06/20 00:00 96.6 77 20 133/74 (93) 96 03/05/20 21:00 Room Air 03/05/20 20:00 98.1 69 18 129/73 (91) 93 03/05/20 16:00 97.9 86 20 93/54 (67) 94 Height (Feet): 5 Height (Inches): 8.00 Weight (Pounds): 151 General Appearance: no acute distress Respiratory/Chest: lungs clear Cardiovascular: normal rate, pacemaker/AICD Abdomen: soft, non tender Extremities: no edema Neurologic/Psychiatric: alert, responsive Musculoskeletal: atrophy Current Medications Medications (Trade) Dose Ordered Sig/Ramiro Route PRN Reason Start Time Stop Time Status Last Admin Dose Admin Acetaminophen (Tylenol) 650 mg Q4H PRN ORAL Mild Pain (Pain Scale 1-3) 02/28/20 17:45 03/29/20 17:44 02/29/20 06:24 Amlodipine Besylate (Norvasc) 2.5 mg DAILY ORAL 03/05/20 09:00 04/04/20 08:59 Ascorbic Acid (Vitamin C) 500 mg TWICE A DAY ORAL 02/29/20 18:00 03/30/20 17:59 03/06/20 09:06 Bisacodyl (Dulcolax) 10 mg DAILYPRN PRN ORAL Constipation 02/28/20 18:00 05/28/20 17:44 Dextrose (Dextrose 50%) 25 ml Q30M PRN IV Hypoglycemia 02/28/20 17:45 05/28/20 17:44 Dextrose (Dextrose 50%) 50 ml Q30M PRN IV Hypoglycemia 02/28/20 17:45 05/28/20 17:44 Dextrose/Sodium Chloride 1,000 ml @ 100 mls/hr Q10H IV 02/29/20 19:00 03/30/20 18:59 03/06/20 07:10 Enoxaparin Sodium (Lovenox) 40 mg Q24H SUBQ 02/28/20 21:00 05/28/20 20:59 03/05/20 21:28 Famotidine (Pepcid) 40 mg DAILY ORAL 02/29/20 09:00 05/29/20 08:59 03/06/20 09:06 Magnesium Hydroxide (Mom) 30 ml DAILYPRN PRN ORAL Constipation 02/28/20 17:45 03/29/20 17:44 Morphine Sulfate (Morphine Sulfate) 1 mg Q3H PRN IVP For Pain 02/28/20 17:45 03/06/20 17:44 Multivitamins (Multivitamins W/ Minerals 15ml Liquid) 15 ml DAILY GT 03/01/20 09:00 03/31/20 08:59 03/06/20 09:06 Olanzapine (ZyPREXA) 2.5 mg EVERY 6 HOURS PRN ORAL agitation 03/04/20 00:00 04/18/20 00:00 Olanzapine (ZyPREXA) 5 mg BEDTIME ORAL 03/02/20 21:00 04/16/20 20:59 03/05/20 21:27 Ondansetron HCl (Zofran) 4 mg Q6H PRN IVP Nausea & Vomiting 02/28/20 17:45 03/29/20 17:44 Sodium Hypochlorite (Dakin's Quarter Strength) 1 applic DAILY TOPIC 03/01/20 09:00 03/31/20 08:59 03/06/20 09:00 Sodium Phosphate (Fleet's Sodium Phosl Enema) 133 ml DAILYPRN PRN RECTAL Constipation 02/28/20 17:45 03/29/20 17:44 Zinc Sulfate (Zinc Sulfate) 220 mg DAILY ORAL 03/01/20 09:00 05/30/20 08:59 03/06/20 09:06 Gage Oquendo MD Mar 06, 2020 13:09
--- NOTE | 2020-03-06 13:59 | Pulmonology Progress Note ---
Assessment/Plan Assessment/Plan IMPRESSION: 1. Endocarditis, off antibiotics. 2. Acute anemia, status post PRBC. 3. Ruled out COVID-19 x1. Second swab also negative. 4. Agitation; seen by psych 5. UTI, MDR DISCUSSION: Continue current medications and care. The patient has a Odonnell catheter in place. The patient has been found to have urine positive for MDR. Consulted and seen by ID. I will continue to follow carefully. Discharge planning back to [facility] facility today. Does not need ASHLEY to confirm resolution of endocarditis; discussed with cardiology Feliciano Angel M.D. Subjective ROS Limited/Unobtainable: No Interval Events: None new; seen by ID; second pcr pending Constitutional: Reports: no symptoms HEENT: Repors: no symptoms Respiratory: Reports: no symptoms Cardiovascular: Reports: no symptoms Gastrointestinal/Abdominal: Reports: no symptoms Genitourinary: Reports: no symptoms Allergies: Coded Allergies: No Known Allergies (Unverified , 02/28/20) All Systems: reviewed and negative except above Objective Last 24 Hour Vital Signs Date Time Temp Pulse Resp B/P (MAP) Pulse Ox O2 Delivery O2 Flow Rate FiO2 03/06/20 12:00 96.0 76 20 112/73 (86) 93 03/06/20 09:00 Room Air 03/06/20 09:00 82 107/64 03/06/20 08:00 96.4 82 18 107/64 (78) 92 03/06/20 04:00 97.5 82 17 109/57 (74) 96 03/06/20 00:00 96.6 77 20 133/74 (93) 96 03/05/20 21:00 Room Air 03/05/20 20:00 98.1 69 18 129/73 (91) 93 03/05/20 16:00 97.9 86 20 93/54 (67) 94 Intake and Output 03/05/20 03/06/20 19:00 07:00 Intake Total 1140 ml 900 ml Balance 1140 ml 900 ml Intake Oral 240 ml IV Total 900 ml 900 ml # Voids 3 2 # Bowel Movements 2 1 General Appearance: no acute distress HEENT: normocephalic Respiratory/Chest: chest wall non-tender, lungs clear Cardiovascular: normal peripheral pulses Abdomen: soft, non tender Extremities: no edema Neurologic/Psychiatric: alert, responsive Musculoskeletal: atrophy Current Medications Medications (Trade) Dose Ordered Sig/Ramiro Route PRN Reason Start Time Stop Time Status Last Admin Dose Admin Acetaminophen (Tylenol) 650 mg Q4H PRN ORAL Mild Pain (Pain Scale 1-3) 02/28/20 17:45 03/29/20 17:44 02/29/20 06:24 Amlodipine Besylate (Norvasc) 2.5 mg DAILY ORAL 03/05/20 09:00 04/04/20 08:59 Ascorbic Acid (Vitamin C) 500 mg TWICE A DAY ORAL 02/29/20 18:00 03/30/20 17:59 03/06/20 09:06 Bisacodyl (Dulcolax) 10 mg DAILYPRN PRN ORAL Constipation 02/28/20 18:00 05/28/20 17:44 Dextrose (Dextrose 50%) 25 ml Q30M PRN IV Hypoglycemia 02/28/20 17:45 05/28/20 17:44 Dextrose (Dextrose 50%) 50 ml Q30M PRN IV Hypoglycemia 02/28/20 17:45 05/28/20 17:44 Dextrose/Sodium Chloride 1,000 ml @ 100 mls/hr Q10H IV 02/29/20 19:00 03/30/20 18:59 03/06/20 07:10 Enoxaparin Sodium (Lovenox) 40 mg Q24H SUBQ 02/28/20 21:00 05/28/20 20:59 03/05/20 21:28 Famotidine (Pepcid) 40 mg DAILY ORAL 02/29/20 09:00 05/29/20 08:59 03/06/20 09:06 Magnesium Hydroxide (Mom) 30 ml DAILYPRN PRN ORAL Constipation 02/28/20 17:45 03/29/20 17:44 Morphine Sulfate (Morphine Sulfate) 1 mg Q3H PRN IVP For Pain 02/28/20 17:45 03/06/20 17:44 Multivitamins (Multivitamins W/ Minerals 15ml Liquid) 15 ml DAILY GT 03/01/20 09:00 03/31/20 08:59 03/06/20 09:06 Olanzapine (ZyPREXA) 2.5 mg EVERY 6 HOURS PRN ORAL agitation 03/04/20 00:00 04/18/20 00:00 Olanzapine (ZyPREXA) 5 mg BEDTIME ORAL 03/02/20 21:00 04/16/20 20:59 03/05/20 21:27 Ondansetron HCl (Zofran) 4 mg Q6H PRN IVP Nausea & Vomiting 02/28/20 17:45 03/29/20 17:44 Sodium Hypochlorite (Dakin's Quarter Strength) 1 applic DAILY TOPIC 03/01/20 09:00 03/31/20 08:59 03/06/20 09:00 Sodium Phosphate (Fleet's Sodium Phosl Enema) 133 ml DAILYPRN PRN RECTAL Constipation 02/28/20 17:45 03/29/20 17:44 Zinc Sulfate (Zinc Sulfate) 220 mg DAILY ORAL 03/01/20 09:00 05/30/20 08:59 03/06/20 09:06 Feliciano Angel MD Mar 06, 2020 13:59
--- NOTE | 2020-03-06 14:08 | NUR ---
*-* DISCHARGE PLANNING *-* PATIENT HAS BEEN REF[facility]ED BACK TO: [facility] P: [phone] F: [phone] EFAX: [phone] Addendum: 03/06/20 at 1526 by JENN SMITH SPOKE TO SACHA WITH [facility]; HE STATED THEY ARE NOT TAKING ANY -COVID PATIENT ONLY + COVID PATIENT. HE STATED HE WOULD SEE IF ANY OF THE SISTER FACLITIES HAS A BED AVAILABILITY.
--- NOTE | 2020-03-06 15:22 | Surgery Progress Note ---
Surgery Progress Note Subjective Symptoms: improved, tolerating diet, passing flatus, BM Objective Last 24 Hour Vital Signs Date Time Temp Pulse Resp B/P (MAP) Pulse Ox O2 Delivery O2 Flow Rate FiO2 03/06/20 12:00 96.0 76 20 112/73 (86) 93 03/06/20 09:00 Room Air 03/06/20 09:00 82 107/64 03/06/20 08:00 96.4 82 18 107/64 (78) 92 03/06/20 04:00 97.5 82 17 109/57 (74) 96 03/06/20 00:00 96.6 77 20 133/74 (93) 96 03/05/20 21:00 Room Air 03/05/20 20:00 98.1 69 18 129/73 (91) 93 03/05/20 16:00 97.9 86 20 93/54 (67) 94 I&O Intake and Output 03/05/20 03/06/20 19:00 07:00 Intake Total 1140 ml 900 ml Balance 1140 ml 900 ml Intake Oral 240 ml IV Total 900 ml 900 ml # Voids 3 2 # Bowel Movements 2 1 Dressing: other Wound: other Drains: other Cardiovascular: RSR Respiratory: decreased breath sounds Abdomen: soft, non-tender, present bowel sounds Extremities: no tenderness, no cyanosis Plan Problems: (1) Right lower lobe pneumonia Assessment & Plan: Findings: There is a moderate size right pleural effusion. Opacity at the right lung base may be secondary to the pleural fluid, but infiltrate also likely. The heart is enlarged. There is a left chest pacemaker. The left lung and pleural space are clear. The right upper lobe is clear. Impression: Right basilar moderate pleural effusion and likely parenchymal consolidation Cardiomegaly Pacemaker cont abx pending micro (2) Failure to thrive Assessment & Plan: DAILY ESTIMATED NEEDS: Needs based on Wounds/ 70.5kg 25-30 kcals/kg 6091-0037 total kcals 1.25-2 g protein/kg 88-141 g total protein 25-30 mL/kg 6872-9016 total fluid mLs NUTRITION DIAGNOSIS: Increased kcal/prot/micronutrients needs R/T wound healing as evidenced by pt admitted w/ multiple advanced wounds, pending evaluation. CURRENT DIET:REGULAR PO DIET RECOMMENDATIONS: REGULAR/ texture as tolerated ADDITIONAL RECOMMENDATIONS: * Calibrated bedscale wt for accurate CBW * Consider Calorie Count x 48 hrs- FTT dx * Add Ensure Enlive BID for now, monitor need to increase * Wound healing: add MVI w/ mineral 1 tab QD, Vit C 500mg BID add ZnSO4 220mg QD x 10 days add David 1pkt BID (3) UTI (urinary tract infection) (4) Decubitus skin ulcer Assessment & Plan: Pt presented on admission with multiple pressure injuries. 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 100% slough at base of wound with marginal erythema along borders.` Unstageable pressure injury lateral R 1st metatarsal and L Hallux. Base of wound is 100% necrotic. Borders and periwound are callused. Unstageable Pressure Injury R heel. Base of wound is 100% necrotic with callused borders.In close proximity but extending into medial aspect of heel is a DTPI. Base of wound is purple with maroon borders. Dry cracked skin periwound. DTPI Plantar L heel. Unstageable pressure L lateral malleolus. 100% yellow slough with surrounding dry black borders. No exudate noted. Proximally to L malleolus Elongated area that is maroon in color. will likely plan for debridement of sacral wound as could use given how large and ill it is Tx.Plan: Cleanse Sacral wound with Dakin's 0.125% ashleigh. Apply Dakin's moistened Gauze to wound. Cover with Optifoam drsg Daily and prn. Apply Betadine to R foot wounds. Cover with ABD Pads and wrap with Kerlix Every 3 days and prn. Apply Betadine to L foot Wounds. Cover with ABD Pads and Wrap with Kerlix every 3 days and prn. APM/BHAVESH Mattress overlay. Reposition at least every 2hours or as tolerated. Off-load heels with Pillow. Yao Mccraty Mar 06, 2020 15:22
--- NOTE | 2020-03-06 19:17 | NUR ---
HAND-OFF: Report given to TERRI collier.
--- NOTE | 2020-03-06 19:50 | NUR ---
NURSE NOTES: Received patient awake, verbal, follows simple command, resting in bed, comfortable.On bilateral soft wrist restrains on.
[2020-03-06] MEDS: Enoxaparin 40mg Inj SUBQ SCH (21:07)
[2020-03-07] MEDS: D51/2NS 1000ml IV SCH (00:58)
[2020-03-07 04:08] VITALS: BP 104/58
--- NOTE | 2020-03-07 05:00 | Progress Note ---
DATE: 03/06/2020 SUBJECTIVE: Patient is the same, doing well, manageable, more awake, on bilateral restraints for pulling IV access. MENTAL STATUS EXAMINATION: Alert and oriented to time and self. Mood is neutral. Affect is flat. Thought process is concrete. Thought content, no suicidal or homicidal ideation. Cognition is impaired. Insight and judgment impaired. ASSESSMENT: Stable. PLAN: Continue Zyprexa. William Lopez M.D. DR: Bridget JOB#: [id number] CC:
--- NOTE | 2020-03-07 05:00 | Progress Note ---
DATE: 03/05/2020 CARDIOLOGY PROGRESS NOTE SUBJECTIVE: Condition unchanged. The patient is awaiting COVID-19 by swabs x2. He remains afebrile. OBJECTIVE: VITAL SIGNS: Blood pressure 101/58, heart rate 74, respiratory rate 20. LUNGS: Clear. CARDIAC: Regular. Normal S1, S2 with 1/4 diastolic murmur at base. ABDOMEN: Soft. EXTREMITIES: No edema. LABORATORY DATA: Blood culture is negative. White count 12, hemoglobin 7.7. Potassium 3.8, BUN 16, creatinine 1.1. Magnesium 1.6. Albumin 1.6. IMPRESSION: 1. Endocarditis, status post treatment. No signs of hemodynamic compromise. 2. Hypomagnesemia. 3. Severe anemia. 4. Dementia with agitation. 5. Hypertension now with adequate blood pressure control. 6. Urinary tract infection. 7. Lower extremity wounds. 8. Peripheral vascular disease. PLAN: 1. Antimicrobials per Infectious Disease contaminated land consultant. 2. No additional diagnostic interventions or therapies for endocarditis. 3. Replace magnesium intravenously. 4. Skin care. 5. Maximize anti-failure rate therapy. 6. Packed red blood cell transfusions for further drop in blood count. Yovany Durant M.D. DR: Sammy JOB#: [id number] CC:
--- NOTE | 2020-03-07 06:59 | Progress Note ---
DATE: 03/06/2020 CARDIOLOGY PROGRESS NOTE SUBJECTIVE: The patient is waiting clearance from COVID-19 infection prior to discharge. Wound care ongoing. Slightly congested. PHYSICAL EXAMINATION: VITAL SIGNS: Blood pressure 102/66, pulse 72, respirations 18, and afebrile. LUNGS: Clear. CARDIAC: Regular. A 1/4 diastolic decrescendo Normal S1 and S2. ABDOMEN: Soft. EXTREMITIES: Trace edema. IMPRESSION: 1. Aortic valve endocarditis status post therapy with no recurring bacteremia. 2. Aortic insufficiency. 3. Acute on chronic diastolic congestive heart failure. 4. Hypomagnesemia. 5. Severe protein-calorie malnutrition. 6. Severe anemia with iron and folate deficiencies. 7. Acute on chronic kidney injury. PLAN: 1. Diuresis. 2. Discontinue IV fluids. 3. IV magnesium replacement. 4. Recheck laboratory studies. 5. Protein supplement. 6. Recheck hemoglobin, may need transfusion. 7. IV venofer and oral folate replacement. Yovany Durant M.D. DR: Alix JOB#: [id number] CC: JAVID
--- NOTE | 2020-03-07 07:25 | NUR ---
HAND-OFF: Report given to TERRI Jones.
--- NOTE | 2020-03-07 07:30 | NUR ---
NURSE NOTES: Received from TERRI Peterson (JoJo). Patient in bed, confused. On room air, no signs of distress or labored breathing. IV intact, patent, and saline locked. Bilateral soft wrist restraints on. Bed in lowest position with bed alarm on. Will continue with frequent reorientation and plan of care.
--- NOTE | 2020-03-07 07:38 | NUR ---
RD ASSESSMENT & RECOMMENDATIONS SEE CARE ACTIVITY FOR COMPLETE ASSESSMENT DAILY ESTIMATED NEEDS: Needs based on Wounds/ 70.5kg 25-30 kcals/kg 0296-2175 total kcals 1.25-2 g protein/kg 88-141 g total protein 25-30 mL/kg 9722-4770 total fluid mLs NUTRITION DIAGNOSIS: Increased kcal/prot/micronutrients needs R/T wound healing as evidenced by pt admitted w/ multiple advanced wounds, including stage 4 sacral, unstageable wounds @ lateral R 1st metatarsal, L Hallux, R heel, and L lateral malleolus, w/ poor and variable PO intake CURRENT DIET:REGULAR + Ensure BID PO DIET RECOMMENDATIONS: REGULAR/ texture as tolerated ADDITIONAL RECOMMENDATIONS: * Calibrated bedscale wt for accurate CBW * Calorie Count x 48 hrs completed-> DATA NOT AVAILABLE -> continue to monitor PO intake closely, re-order if indicated *Ensure Enlive TID w/ poor and variable intake * Consider appetite stimulant to help improve PO intake * Consider ASSEM[employer]ER [employer] PULL[employer] OVER MACHINE eval for appropriate texture * Wound healing: Continue MVI+ Vit C + ZnSO4 + David BID Addendum: 03/07/20 at [address] ALSO RECOMMEND: * ADD accuchecks for close monitoring of hypoglycemia (BGs 53, 67 on 03/05 and 03/04, respectively) * Add D5 IVF w/ poor PO to prevent hypoglycemia
[2020-03-07 08:00] VITALS: BP 93/62
--- NOTE | 2020-03-07 09:51 | NUR ---
DISCHARGE PLANNING FOLLOW UP WITH SACHA AT [facility]. STATES THEIR SISTER FACILITY IS NOT ABLE TO ACCEPT PATIENT AT THIS TIME. PATIENT HAS THEREFORE BEEN REFERRED TO THE FOLLOWING SNF'S [facility] P: [phone] F: [phone] [facility] P: [phone] F: [phone] [facility] P: [phone] F: [phone] [facility] P: [phone] F: [phone] [facility] P: [phone] [facility] P:[phone] F: [phone] [facility] P: [phone] F: [phone] [facility] P: [phone] F: [phone] [facility] P: [phone] F: [phone] [facility] P: [phone] F: [phone] Addendum: 03/07/20 at 1325 by LUCA SOSA [facility] [place] P: [phone] [facility]ULTIPLE CALL, NO ANSWER [facility] P: [phone] S/W ARACELIS, NOT ACCEPTING ANY PATIENTS [facility] P: [phone] S/W KIRSTEN, NO MALE BEDS [facility] P: [phone] S/W LEAH, NOT ADMITTING ANY NEW PATIENTS UNTIL NEXT WEEK [facility] P: [phone] S/W , NOT ACCEPTING ANY PATIENTS [facility] P:[phone] S/W KRISTIN NO MALE BEDS [facility] P: [phone] S/W JOHNATHAN, HAVEN'T RECEIVED CLINICALS [facility] P: [phone] S/W JUSTO, NO MALE BEDS RIGHT NOW [facility] P: [phone] S/W ABRIL, CANNOT ACCEPT ANY PATIENTS [facility] P: [phone] S/W PERCENT, NO ADMISSIONS
[2020-03-07 09:54] LABS: HEMATOCRIT 23.5 % (42.0-52.0); HEMOGLOBIN 7.4 G/DL (14.2-18.0); MEAN CORPUSCULAR VOLUME 69 FL (80-99); PLATELET COUNT 176 K/UL (150-450); RED BLOOD COUNT 3.39 M/UL (4.70-6.10); RED CELL DISTRIBUTION WIDTH 16.9 % (11.6-14.8); WHITE BLOOD COUNT 11.6 K/UL (4.8-10.8)
[2020-03-07 10:15] LABS: ALANINE AMINOTRANSFERASE 22 U/L (12-78); ALBUMIN 1.8 G/DL (3.4-5.0); ALBUMIN/GLOBULIN RATIO 0.4 (1.0-2.7); ALKALINE PHOSPHATASE 54 U/L (46-116); ANION GAP 12 mmol/L (5-15); ASPARTATE AMINO TRANSFERASE 20 U/L (15-37); BILIRUBIN,TOTAL 0.3 MG/DL (0.2-1.0); BLOOD UREA NITROGEN 17 mg/dL (7-18); CALCIUM 8.5 MG/DL (8.5-10.1); CARBON DIOXIDE 24 MMOL/L (21-32); CHLORIDE 107 MMOL/L (98-107); CREATININE 1.2 MG/DL (0.55-1.30); POTASSIUM 3.1 MMOL/L (3.5-5.1); SODIUM 143 MMOL/L (136-145)
--- NOTE | 2020-03-07 10:16 | NUR ---
CHARGE NURSE NOTE: Spoke with regarding H@H 7.03/06.. No blood transfusion order given.
[2020-03-07] MEDS: Multivitamins W/Minerals 15 ML UDC GT SCH (11:00)
[2020-03-07] MEDS: Ascorbic Acid 500mg tab ORAL SCH ×3 (11:01→18:46)
[2020-03-07] MEDS: Zinc Sulfate 220mg cap ORAL SCH (11:01)
[2020-03-07] MEDS: Dakin's 0.125% Soln (Quarter Strength) 16oz TOPIC SCH (11:02)
--- NOTE | 2020-03-07 11:19 | Infectious Diseases Prog Note ---
Assessment/Plan Assessment/Plan antibiotics : none A 1. pseudomonas UTI s/p rx 2. hypertension 3. COVID 19 negative x 2, 4.16.20, 4.20.20 4. recent aortic valve endocarditis P 1. observe off antibiotics 2. d/c isolation 3. will follow up cultures Subjective ROS Limited/Unobtainable: Yes Allergies: Coded Allergies: No Known Allergies (Unverified , 02/28/20) Objective Vital Signs Last 24 Hour Vital Signs Date Time Temp Pulse Resp B/P (MAP) Pulse Ox O2 Delivery O2 Flow Rate FiO2 03/07/20 11:01 86 93/62 03/07/20 08:00 97.5 86 20 93/62 (72) 95 03/07/20 04:08 98.5 78 18 104/58 (73) 95 03/06/20 23:46 98.4 72 18 102/66 (78) 95 03/06/20 20:07 Room Air 03/06/20 20:00 98.6 73 18 105/62 (76) 95 03/06/20 16:00 97.4 69 19 138/72 (94) 92 03/06/20 12:00 96.0 76 20 112/73 (86) 93 Height (Feet): 5 Height (Inches): 8.00 Weight (Pounds): 151 Respiratory/Chest: lungs clear Cardiovascular: normal rate, regular rhythm, no gallop/murmur Abdomen: soft, non tender Extremities: no edema Laboratory Tests Test 03/07/20 09:00 White Blood Count 11.6 K/UL (4.8-10.8) H Red Blood Count 3.39 M/UL (4.70-6.10) L Hemoglobin 7.4 G/DL (14.2-18.0) L Hematocrit 23.5 % (42.0-52.0) L Mean Corpuscular Volume 69 FL (80-99) L Mean Corpuscular Hemoglobin 21.8 PG (27.0-31.0) L Mean Corpuscular Hemoglobin Concent 31.5 G/DL (32.0-36.0) L Red Cell Distribution Width 16.9 % (11.6-14.8) H Platelet Count 176 K/UL (150-450) Mean Platelet Volume 6.8 FL (6.5-10.1) Neutrophils (%) (Auto) % (45.0-75.0) Lymphocytes (%) (Auto) % (20.0-45.0) Monocytes (%) (Auto) % (1.0-10.0) Eosinophils (%) (Auto) % (0.0-3.0) Basophils (%) (Auto) % (0.0-2.0) Neutrophils % (Manual) Pending Lymphocytes % (Manual) Pending Platelet Estimate Pending Platelet Morphology Pending Sodium Level 143 MMOL/L (136-145) Potassium Level 3.1 MMOL/L (3.5-5.1) L Chloride Level 107 MMOL/L (98-107) Carbon Dioxide Level 24 MMOL/L (21-32) Anion Gap 12 mmol/L (5-15) Blood Urea Nitrogen 17 mg/dL (7-18) Creatinine 1.2 MG/DL (0.55-1.30) Estimat Glomerular Filtration Rate > 60 mL/min (>60) Glucose Level 87 MG/DL (74-106) Calcium Level 8.5 MG/DL (8.5-10.1) Magnesium Level 1.9 MG/DL (1.8-2.4) Total Bilirubin 0.3 MG/DL (0.2-1.0) Aspartate Amino Transf (AST/SGOT) 20 U/L (15-37) Alanine Aminotransferase (ALT/SGPT) 22 U/L (12-78) Alkaline Phosphatase 54 U/L (46-116) Total Protein 6.3 G/DL (6.4-8.2) L Albumin 1.8 G/DL (3.4-5.0) L Globulin 4.5 g/dL Albumin/Globulin Ratio 0.4 (1.0-2.7) L Current Medications Medications (Trade) Dose Ordered Sig/Ramiro Route PRN Reason Start Time Stop Time Status Last Admin Dose Admin Acetaminophen (Tylenol) 650 mg Q4H PRN ORAL Mild Pain (Pain Scale 1-3) 02/28/20 17:45 03/29/20 17:44 02/29/20 06:24 Amlodipine Besylate (Norvasc) 2.5 mg DAILY ORAL 03/05/20 09:00 04/04/20 08:59 Ascorbic Acid (Vitamin C) 500 mg TWICE A DAY ORAL 02/29/20 18:00 03/30/20 17:59 03/07/20 11:01 Bisacodyl (Dulcolax) 10 mg DAILYPRN PRN ORAL Constipation 02/28/20 18:00 05/28/20 17:44 Dextrose (Dextrose 50%) 25 ml Q30M PRN IV Hypoglycemia 02/28/20 17:45 05/28/20 17:44 Dextrose (Dextrose 50%) 50 ml Q30M PRN IV Hypoglycemia 02/28/20 17:45 05/28/20 17:44 Enoxaparin Sodium (Lovenox) 40 mg Q24H SUBQ 02/28/20 21:00 05/28/20 20:59 03/06/20 21:07 Famotidine (Pepcid) 40 mg DAILY ORAL 02/29/20 09:00 05/29/20 08:59 03/07/20 11:01 Magnesium Hydroxide (Mom) 30 ml DAILYPRN PRN ORAL Constipation 02/28/20 17:45 03/29/20 17:44 Multivitamins (Multivitamins W/ Minerals 15ml Liquid) 15 ml DAILY GT 03/01/20 09:00 03/31/20 08:59 03/07/20 11:00 Olanzapine (ZyPREXA) 2.5 mg EVERY 6 HOURS PRN ORAL agitation 03/04/20 00:00 04/18/20 00:00 Olanzapine (ZyPREXA) 5 mg BEDTIME ORAL 03/02/20 21:00 04/16/20 20:59 03/06/20 21:05 Ondansetron HCl (Zofran) 4 mg Q6H PRN IVP Nausea & Vomiting 02/28/20 17:45 03/29/20 17:44 Sodium Hypochlorite (Dakin's Quarter Strength) 1 applic DAILY TOPIC 03/01/20 09:00 03/31/20 08:59 03/07/20 11:02 Sodium Phosphate (Fleet's Sodium Phosl Enema) 133 ml DAILYPRN PRN RECTAL Constipation 02/28/20 17:45 03/29/20 17:44 Zinc Sulfate (Zinc Sulfate) 220 mg DAILY ORAL 03/01/20 09:00 05/30/20 08:59 03/07/20 11:01 Ana Paula Mccord MD Mar 07, 2020 11:19
--- NOTE | 2020-03-07 11:55 | Pulmonology Progress Note ---
Assessment/Plan Assessment/Plan IMPRESSION: 1. Endocarditis, off antibiotics. 2. Acute anemia, status post PRBC. 3. Ruled out COVID-19 x1. Second swab also negative. 4. Agitation; seen by psych 5. UTI, MDR DISCUSSION: Continue current medications and care. The patient has a Odonnell catheter in place. The patient has been found to have urine positive for MDR. Consulted and seen by ID. I will continue to follow carefully. Discharge planning back to long-term facility today. Does not need ASHLEY to confirm resolution of endocarditis; discussed with cardiology Feliciano Angel M.D. Subjective ROS Limited/Unobtainable: Yes Interval Events: None new; seen by ID; second pcr pending Constitutional: Reports: no symptoms HEENT: Repors: no symptoms Respiratory: Reports: no symptoms Cardiovascular: Reports: no symptoms Gastrointestinal/Abdominal: Reports: no symptoms Genitourinary: Reports: no symptoms Allergies: Coded Allergies: No Known Allergies (Unverified , 02/28/20) All Systems: reviewed and negative except above Objective Last 24 Hour Vital Signs Date Time Temp Pulse Resp B/P (MAP) Pulse Ox O2 Delivery O2 Flow Rate FiO2 03/07/20 11:01 86 93/62 03/07/20 08:00 97.5 86 20 93/62 (72) 95 03/07/20 04:08 98.5 78 18 104/58 (73) 95 03/06/20 23:46 98.4 72 18 102/66 (78) 95 03/06/20 20:07 Room Air 03/06/20 20:00 98.6 73 18 105/62 (76) 95 03/06/20 16:00 97.4 69 19 138/72 (94) 92 03/06/20 12:00 96.0 76 20 112/73 (86) 93 Intake and Output 03/06/20 03/07/20 19:00 07:00 Intake Total 1250 ml 1380 ml Balance 1250 ml 1380 ml Intake Oral 150 ml 480 ml IV Total 1100 ml 900 ml # Voids 2 3 # Bowel Movements 3 2 General Appearance: no acute distress HEENT: normocephalic Respiratory/Chest: chest wall non-tender, lungs clear Cardiovascular: normal peripheral pulses Abdomen: soft, non tender Extremities: no edema Neurologic/Psychiatric: alert, responsive Musculoskeletal: atrophy Laboratory Tests 03/07/20 09:00: White Blood Count 11.6H, Red Blood Count 3.39L, Hemoglobin 7.4L, Hematocrit 23.5L, Mean Corpuscular Volume 69L, Mean Corpuscular Hemoglobin 21.8L, Mean Corpuscular Hemoglobin Concent 31.5L, Red Cell Distribution Width 16.9H, Platelet Count 176, Mean Platelet Volume 6.8, Neutrophils (%) (Auto) , Lymphocytes (%) (Auto) , Monocytes (%) (Auto) , Eosinophils (%) (Auto) , Basophils (%) (Auto) , Neutrophils % (Manual) [Pending], Lymphocytes % (Manual) [Pending], Platelet Estimate [Pending], Platelet Morphology [Pending], Sodium Level 143, Potassium Level 3.1L, Chloride Level 107, Carbon Dioxide Level 24, Anion Gap 12, Blood Urea Nitrogen 17, Creatinine 1.2, Estimat Glomerular Filtration Rate > 60, Glucose Level 87, Calcium Level 8.5, Magnesium Level 1.9, Total Bilirubin 0.3, Aspartate Amino Transf (AST/SGOT) 20, Alanine Aminotransferase (ALT/SGPT) 22, Alkaline Phosphatase 54, Total Protein 6.3L, Albumin 1.8L, Globulin 4.5, Albumin/Globulin Ratio 0.4L Current Medications Medications (Trade) Dose Ordered Sig/Ramiro Route PRN Reason Start Time Stop Time Status Last Admin Dose Admin Acetaminophen (Tylenol) 650 mg Q4H PRN ORAL Mild Pain (Pain Scale 1-3) 02/28/20 17:45 03/29/20 17:44 02/29/20 06:24 Amlodipine Besylate (Norvasc) 2.5 mg DAILY ORAL 03/05/20 09:00 04/04/20 08:59 Ascorbic Acid (Vitamin C) 500 mg TWICE A DAY ORAL 02/29/20 18:00 03/30/20 17:59 03/07/20 11:01 Bisacodyl (Dulcolax) 10 mg DAILYPRN PRN ORAL Constipation 02/28/20 18:00 05/28/20 17:44 Dextrose (Dextrose 50%) 25 ml Q30M PRN IV Hypoglycemia 02/28/20 17:45 05/28/20 17:44 Dextrose (Dextrose 50%) 50 ml Q30M PRN IV Hypoglycemia 02/28/20 17:45 05/28/20 17:44 Enoxaparin Sodium (Lovenox) 40 mg Q24H SUBQ 02/28/20 21:00 05/28/20 20:59 03/06/20 21:07 Famotidine (Pepcid) 40 mg DAILY ORAL 02/29/20 09:00 05/29/20 08:59 03/07/20 11:01 Magnesium Hydroxide (Mom) 30 ml DAILYPRN PRN ORAL Constipation 02/28/20 17:45 03/29/20 17:44 Multivitamins (Multivitamins W/ Minerals 15ml Liquid) 15 ml DAILY GT 03/01/20 09:00 03/31/20 08:59 03/07/20 11:00 Olanzapine (ZyPREXA) 2.5 mg EVERY 6 HOURS PRN ORAL agitation 03/04/20 00:00 04/18/20 00:00 Olanzapine (ZyPREXA) 5 mg BEDTIME ORAL 03/02/20 21:00 04/16/20 20:59 03/06/20 21:05 Ondansetron HCl (Zofran) 4 mg Q6H PRN IVP Nausea & Vomiting 02/28/20 17:45 03/29/20 17:44 Sodium Hypochlorite (Dakin's Quarter Strength) 1 applic DAILY TOPIC 03/01/20 09:00 03/31/20 08:59 03/07/20 11:02 Sodium Phosphate (Fleet's Sodium Phosl Enema) 133 ml DAILYPRN PRN RECTAL Constipation 02/28/20 17:45 03/29/20 17:44 Zinc Sulfate (Zinc Sulfate) 220 mg DAILY ORAL 03/01/20 09:00 05/30/20 08:59 03/07/20 11:01 Feliciano Angel MD Mar 07, 2020 11:55
[2020-03-07 12:00] VITALS: BP 111/65
--- NOTE | 2020-03-07 14:38 | Surgery Progress Note ---
Surgery Progress Note Subjective Additional Comments doing okay labs noted exam stable Objective Last 24 Hour Vital Signs Date Time Temp Pulse Resp B/P (MAP) Pulse Ox O2 Delivery O2 Flow Rate FiO2 03/07/20 11:01 86 93/62 03/07/20 08:00 97.5 86 20 93/62 (72) 95 03/07/20 04:08 98.5 78 18 104/58 (73) 95 03/06/20 23:46 98.4 72 18 102/66 (78) 95 03/06/20 20:07 Room Air 03/06/20 20:00 98.6 73 18 105/62 (76) 95 03/06/20 16:00 97.4 69 19 138/72 (94) 92 I&O Intake and Output 03/06/20 03/07/20 19:00 07:00 Intake Total 1250 ml 1380 ml Balance 1250 ml 1380 ml Intake Oral 150 ml 480 ml IV Total 1100 ml 900 ml # Voids 2 3 # Bowel Movements 3 2 Dressing: other Wound: other Drains: other Cardiovascular: RSR Respiratory: decreased breath sounds Abdomen: soft, non-tender, present bowel sounds Extremities: no tenderness, no cyanosis Laboratory Tests Test 03/07/20 09:00 White Blood Count 11.6 K/UL (4.8-10.8) H Red Blood Count 3.39 M/UL (4.70-6.10) L Hemoglobin 7.4 G/DL (14.2-18.0) L Hematocrit 23.5 % (42.0-52.0) L Mean Corpuscular Volume 69 FL (80-99) L Mean Corpuscular Hemoglobin 21.8 PG (27.0-31.0) L Mean Corpuscular Hemoglobin Concent 31.5 G/DL (32.0-36.0) L Red Cell Distribution Width 16.9 % (11.6-14.8) H Platelet Count 176 K/UL (150-450) Mean Platelet Volume 6.8 FL (6.5-10.1) Neutrophils (%) (Auto) % (45.0-75.0) Lymphocytes (%) (Auto) % (20.0-45.0) Monocytes (%) (Auto) % (1.0-10.0) Eosinophils (%) (Auto) % (0.0-3.0) Basophils (%) (Auto) % (0.0-2.0) Differential Total Cells Counted 100 Neutrophils % (Manual) 83 % (45-75) H Lymphocytes % (Manual) 11 % (20-45) L Monocytes % (Manual) 4 % (1-10) Eosinophils % (Manual) 0 % (0-3) Basophils % (Manual) 2 % (0-2) Band Neutrophils 0 % (0-8) Platelet Estimate Adequate Platelet Morphology Normal Hypochromasia 3+ Anisocytosis 1+ Microcytosis 2+ Sodium Level 143 MMOL/L (136-145) Potassium Level 3.1 MMOL/L (3.5-5.1) L Chloride Level 107 MMOL/L (98-107) Carbon Dioxide Level 24 MMOL/L (21-32) Anion Gap 12 mmol/L (5-15) Blood Urea Nitrogen 17 mg/dL (7-18) Creatinine 1.2 MG/DL (0.55-1.30) Estimat Glomerular Filtration Rate > 60 mL/min (>60) Glucose Level 87 MG/DL (74-106) Calcium Level 8.5 MG/DL (8.5-10.1) Magnesium Level 1.9 MG/DL (1.8-2.4) Total Bilirubin 0.3 MG/DL (0.2-1.0) Aspartate Amino Transf (AST/SGOT) 20 U/L (15-37) Alanine Aminotransferase (ALT/SGPT) 22 U/L (12-78) Alkaline Phosphatase 54 U/L (46-116) Total Protein 6.3 G/DL (6.4-8.2) L Albumin 1.8 G/DL (3.4-5.0) L Globulin 4.5 g/dL Albumin/Globulin Ratio 0.4 (1.0-2.7) L Plan Problems: (1) Right lower lobe pneumonia Assessment & Plan: Findings: There is a moderate size right pleural effusion. Opacity at the right lung base may be secondary to the pleural fluid, but infiltrate also likely. The heart is enlarged. There is a left chest pacemaker. The left lung and pleural space are clear. The right upper lobe is clear. Impression: Right basilar moderate pleural effusion and likely parenchymal consolidation Cardiomegaly Pacemaker cont abx pending micro (2) Failure to thrive Assessment & Plan: DAILY ESTIMATED NEEDS: Needs based on Wounds/ 70.5kg 25-30 kcals/kg 9856-6455 total kcals 1.25-2 g protein/kg 88-141 g total protein 25-30 mL/kg 4902-0699 total fluid mLs NUTRITION DIAGNOSIS: Increased kcal/prot/micronutrients needs R/T wound healing as evidenced by pt admitted w/ multiple advanced wounds, pending evaluation. CURRENT DIET:REGULAR PO DIET RECOMMENDATIONS: REGULAR/ texture as tolerated ADDITIONAL RECOMMENDATIONS: * Calibrated bedscale wt for accurate CBW * Consider Calorie Count x 48 hrs- FTT dx * Add Ensure Enlive BID for now, monitor need to increase * Wound healing: add MVI w/ mineral 1 tab QD, Vit C 500mg BID add ZnSO4 220mg QD x 10 days add David 1pkt BID (3) UTI (urinary tract infection) (4) Decubitus skin ulcer Assessment & Plan: Pt presented on admission with multiple pressure injuries. 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 100% slough at base of wound with marginal erythema along borders.` Unstageable pressure injury lateral R 1st metatarsal and L Hallux. Base of wound is 100% necrotic. Borders and periwound are callused. Unstageable Pressure Injury R heel. Base of wound is 100% necrotic with callused borders.In close proximity but extending into medial aspect of heel is a DTPI. Base of wound is purple with maroon borders. Dry cracked skin periwound. DTPI Plantar L heel. Unstageable pressure L lateral malleolus. 100% yellow slough with surrounding dry black borders. No exudate noted. Proximally to L malleolus Elongated area that is maroon in color. will likely plan for debridement of sacral wound as could use given how large and ill it is Tx.Plan: Cleanse Sacral wound with Dakin's 0.125% ashleigh. Apply Dakin's moistened Gauze to wound. Cover with Optifoam drsg Daily and prn. Apply Betadine to R foot wounds. Cover with ABD Pads and wrap with Kerlix Every 3 days and prn. Apply Betadine to L foot Wounds. Cover with ABD Pads and Wrap with Kerlix every 3 days and prn. APM/BHAVESH Mattress overlay. Reposition at least every 2hours or as tolerated. Off-load heels with Pillow. Yao Mccarty Apr 24, 2020 14:38
--- NOTE | 2020-03-07 14:41 | NUR ---
CASE MANAGEMENT:REVIEW SI;ENDOCARDITIS. MDR UTI. ACUTE ANEMIA. 98.6 86 20 93/62 95% ON RA WBC 11.6 H/H 7.4/23.5 K+ 3.1 ALB 1.8 IS;K-DUR IV ONCE MAG SULF IV ONCE ZINC PO QD VIT C PO BID PEPCID PO QD LOVENOX SUBQ QD MED SURG STATUS DCP;SNF PLACEMENT PATIENT FROM [facility] PER SACHA, CURRENTLY ONLY ADMITTING COVID+ PATIENTS PATIENT HAS BEEN REFERRED TO [facility]
[2020-03-07 16:00] VITALS: BP 131/80
--- NOTE | 2020-03-07 18:55 | NUR ---
NURSE NOTES: Patient refused medications, including Potassium supplement. RN explained risks and benefits and patient became aggressive towards nurse.
--- NOTE | 2020-03-07 19:43 | NUR ---
NURSE NOTES: Received patient in bed, asleep, no acute distress note, IV site is clean dry and intact, patient is incontinent of bowel and bladder, confused and disoriented, fall risk precautions are implemented, staff on the floor are aware and frequent rounds will be made. Call light is within reach, bed is lowered, locked, alarm is on, will continue to monitor for comfort and safety.
--- NOTE | 2020-03-07 19:55 | NUR ---
HAND-OFF: Report given to TERRI Wilson.
[2020-03-07 20:00] VITALS: BP 105/56
[2020-03-07] MEDS: Enoxaparin 40mg Inj SUBQ SCH (21:01)
[2020-03-08] VITALS: BP 109/54
[2020-03-08 04:00] VITALS: BP 106/59
--- NOTE | 2020-03-08 05:30 | Progress Note ---
DATE: 03/07/2020 CARDIOLOGY PROGRESS NOTE SUBJECTIVE: The patient completed therapy for aortic valve endocarditis. Recent echo reveals mild to moderate aortic insufficiency. There were no positive blood cultures. The patient has been treated for urinary tract infection with Pseudomonas . The patient's blood pressure parameters are on the low normal range. There is a single episode of . PHYSICAL EXAMINATION: LUNGS: Clear. CARDIAC: Regular. Normal S1, S2. A 1/4 diastolic decrescendo. ABDOMEN: Soft. EXTREMITIES: No edema. LABORATORY DATA: Hemoglobin 7.4. Potassium 3.1, magnesium 1.9, albumin 1.8. IMPRESSION: 1. Hypokalemia. 2. Aortic valve endocarditis status post treatment. 3. Pseudomonas urinary tract infection, status post treatment. 4. Aortic insufficiency. 5. Chronic diastolic congestive heart failure. PLAN: 1. Replace electrolytes. 2. Trend natriuretic peptide . 3. Diuresis based on clinical parameters. 4. Maximize anti-failure regimen with limits based on blood pressure parameters. Yovany Durant M.D. DR: Alix JOB#: [id number] CC:
[2020-03-08 06:26] LABS: HEMATOCRIT 24.3 % (42.0-52.0); HEMOGLOBIN 7.7 G/DL (14.2-18.0); MEAN CORPUSCULAR VOLUME 69 FL (80-99); PLATELET COUNT 174 K/UL (150-450); RED BLOOD COUNT 3.53 M/UL (4.70-6.10); RED CELL DISTRIBUTION WIDTH 16.9 % (11.6-14.8); WHITE BLOOD COUNT 8.2 K/UL (4.8-10.8)
[2020-03-08 07:08] LABS: ANION GAP 10 mmol/L (5-15); BLOOD UREA NITROGEN 16 mg/dL (7-18); CALCIUM 9.2 MG/DL (8.5-10.1); CARBON DIOXIDE 23 MMOL/L (21-32); CHLORIDE 106 MMOL/L (98-107); CREATININE 1.2 MG/DL (0.55-1.30); POTASSIUM 3.8 MMOL/L (3.5-5.1); SODIUM 139 MMOL/L (136-145)
--- NOTE | 2020-03-08 07:15 | NUR ---
NURSE NOTES: Received report from TERRI Wilson (Rita). Patient sleeping. On room air, no signs of distress or labored breathing. IV intact, patent, and saline locked wrapped in kerlix. Bed in lowest position with call light in reach. Side rails up x3. Will continue with plan of care.
[2020-03-08 08:00] VITALS: BP 107/64
[2020-03-08] MEDS: Ascorbic Acid 500mg tab ORAL SCH ×2 (09:19→17:37)
[2020-03-08] MEDS: Dakin's 0.125% Soln (Quarter Strength) 16oz TOPIC SCH (09:19)
[2020-03-08] MEDS: Zinc Sulfate 220mg cap ORAL SCH (09:19)
[2020-03-08] MEDS: Multivitamins W/Minerals 15 ML UDC GT SCH (09:19)
--- NOTE | 2020-03-08 11:38 | Pulmonology Progress Note ---
Assessment/Plan Assessment/Plan IMPRESSION: 1. Endocarditis, off antibiotics. 2. Acute anemia, status post PRBC. 3. Ruled out COVID-19 x1. Second swab also negative. 4. Agitation; seen by psych 5. UTI, MDR DISCUSSION: Continue current medications and care. The patient has a Odonnell catheter in place. The patient has been found to have urine positive for MDR. Consulted and seen by ID. I will continue to follow carefully. Discharge planning back to senior living facility today. Does not need ASHLEY to confirm resolution of endocarditis; discussed with cardiology Feliciano Angel M.D. Subjective ROS Limited/Unobtainable: Yes Interval Events: None new; seen by ID; second pcr pending Constitutional: Reports: no symptoms HEENT: Repors: no symptoms Respiratory: Reports: no symptoms Cardiovascular: Reports: no symptoms Gastrointestinal/Abdominal: Reports: no symptoms Genitourinary: Reports: no symptoms Allergies: Coded Allergies: No Known Allergies (Unverified , 02/28/20) All Systems: reviewed and negative except above Objective Last 24 Hour Vital Signs Date Time Temp Pulse Resp B/P (MAP) Pulse Ox O2 Delivery O2 Flow Rate FiO2 03/08/20 09:00 75 107/64 03/08/20 08:00 97.9 75 20 107/64 (78) 97 03/08/20 04:00 98.5 60 20 106/59 (75) 95 03/08/20 00:00 98.2 56 20 109/54 (72) 95 03/07/20 21:03 Room Air 03/07/20 20:00 98.6 58 20 105/56 (72) 94 03/07/20 16:00 97.3 72 20 131/80 (97) 99 03/07/20 12:00 97.0 68 20 111/65 (80) 95 Intake and Output 03/07/20 03/08/20 19:00 07:00 Intake Total 480 ml 240 ml Balance 480 ml 240 ml Intake Oral 480 ml 240 ml # Voids 3 1 # Bowel Movements 1 1 General Appearance: no acute distress HEENT: normocephalic Respiratory/Chest: chest wall non-tender, lungs clear Cardiovascular: normal peripheral pulses Abdomen: soft, non tender Extremities: no edema Neurologic/Psychiatric: alert, responsive Musculoskeletal: atrophy Laboratory Tests 03/08/20 05:50: White Blood Count 8.2, Red Blood Count 3.53L, Hemoglobin 7.7L, Hematocrit 24.3L , Mean Corpuscular Volume 69L, Mean Corpuscular Hemoglobin 21.9L, Mean Corpuscular Hemoglobin Concent 31.7L, Red Cell Distribution Width 16.9H, Platelet Count 174, Mean Platelet Volume 6.5, Neutrophils (%) (Auto) , Lymphocytes (%) (Auto) , Monocytes (%) (Auto) , Eosinophils (%) (Auto) , Basophils (%) (Auto) , Differential Total Cells Counted 100, Neutrophils % ( Manual) 79H, Lymphocytes % (Manual) 12L, Monocytes % (Manual) 7, Eosinophils % ( Manual) 1, Basophils % (Manual) 1, Band Neutrophils 0, Platelet Estimate Adequate, Platelet Morphology Normal, Hypochromasia 3+, Anisocytosis 1+, Microcytosis 2+, Sodium Level 139, Potassium Level 3.8, Chloride Level 106, Carbon Dioxide Level 23, Anion Gap 10, Blood Urea Nitrogen 16, Creatinine 1.2, Estimat Glomerular Filtration Rate > 60, Glucose Level 59L, Calcium Level 9.2, Magnesium Level 1.8, Pro-B-Type Natriuretic Peptide 2048H Current Medications Medications (Trade) Dose Ordered Sig/Ramiro Route PRN Reason Start Time Stop Time Status Last Admin Dose Admin Acetaminophen (Tylenol) 650 mg Q4H PRN ORAL Mild Pain (Pain Scale 1-3) 02/28/20 17:45 03/29/20 17:44 02/29/20 06:24 Amlodipine Besylate (Norvasc) 2.5 mg DAILY ORAL 03/05/20 09:00 04/04/20 08:59 Ascorbic Acid (Vitamin C) 500 mg TWICE A DAY ORAL 02/29/20 18:00 03/30/20 17:59 03/08/20 09:19 Bisacodyl (Dulcolax) 10 mg DAILYPRN PRN ORAL Constipation 02/28/20 18:00 05/28/20 17:44 Dextrose (Dextrose 50%) 25 ml Q30M PRN IV Hypoglycemia 02/28/20 17:45 05/28/20 17:44 Dextrose (Dextrose 50%) 50 ml Q30M PRN IV Hypoglycemia 02/28/20 17:45 05/28/20 17:44 Enoxaparin Sodium (Lovenox) 40 mg Q24H SUBQ 02/28/20 21:00 05/28/20 20:59 03/07/20 21:01 Famotidine (Pepcid) 40 mg DAILY ORAL 02/29/20 09:00 05/29/20 08:59 03/08/20 09:19 Folic Acid (Folate) 1 mg DAILY ORAL 03/08/20 09:00 04/07/20 08:59 03/08/20 09:19 Iron Sucrose 100 mg/Sodium Chloride 60 ml @ 240 mls/hr BEDTIME IV 03/08/20 21:00 03/12/20 21:14 Magnesium Hydroxide (Mom) 30 ml DAILYPRN PRN ORAL Constipation 02/28/20 17:45 03/29/20 17:44 Multivitamins (Multivitamins W/ Minerals 15ml Liquid) 15 ml DAILY GT 03/01/20 09:00 03/31/20 08:59 03/08/20 09:19 Olanzapine (ZyPREXA) 2.5 mg BEDTIME ORAL 03/08/20 21:00 04/22/20 20:59 Olanzapine (ZyPREXA) 2.5 mg EVERY 6 HOURS PRN ORAL agitation 03/04/20 00:00 04/18/20 00:00 Ondansetron HCl (Zofran) 4 mg Q6H PRN IVP Nausea & Vomiting 02/28/20 17:45 03/29/20 17:44 Sodium Hypochlorite (Dakin's Quarter Strength) 1 applic DAILY TOPIC 03/01/20 09:00 03/31/20 08:59 03/08/20 09:19 Sodium Phosphate (Fleet's Sodium Phosl Enema) 133 ml DAILYPRN PRN RECTAL Constipation 02/28/20 17:45 03/29/20 17:44 Zinc Sulfate (Zinc Sulfate) 220 mg DAILY ORAL 03/01/20 09:00 05/30/20 08:59 03/08/20 09:19 Feliciano Angel MD Mar 08, 2020 11:38
[2020-03-08 12:00] VITALS: BP 120/73
--- NOTE | 2020-03-08 15:10 | NUR ---
P.T. NOTES S/P: U/A TO TREAT PATIENT SECONDARY TO NO PPE. NO GOWNS AVAILABLE. RN STATED, "WE HAVE A GOWN SHORTAGE. WE ARE RATIONING." WILL F/U NEXT TX. TIME AND CONT WITH P.T. PLAN. RSABADO.
[2020-03-08 16:00] VITALS: BP 125/78
--- NOTE | 2020-03-08 19:26 | NUR ---
HAND-OFF: Report given to TERRI Barakat.
--- NOTE | 2020-03-08 19:39 | Surgery Progress Note ---
Surgery Progress Note Subjective Symptoms: improved, pain absent, tolerating diet, voiding well, passing flatus Objective Last 24 Hour Vital Signs Date Time Temp Pulse Resp B/P (MAP) Pulse Ox O2 Delivery O2 Flow Rate FiO2 03/08/20 16:00 98.0 85 18 125/78 (94) 97 03/08/20 12:00 97.7 79 18 120/73 (89) 95 03/08/20 09:00 Room Air 03/08/20 09:00 75 107/64 03/08/20 08:00 97.9 75 20 107/64 (78) 97 03/08/20 04:00 98.5 60 20 106/59 (75) 95 03/08/20 00:00 98.2 56 20 109/54 (72) 95 03/07/20 21:03 Room Air 03/07/20 20:00 98.6 58 20 105/56 (72) 94 I&O Intake and Output 03/07/20 03/08/20 19:00 07:00 Intake Total 480 ml 240 ml Balance 480 ml 240 ml Intake Oral 480 ml 240 ml # Voids 3 1 # Bowel Movements 1 1 Dressing: dry Wound: clean Cardiovascular: RSR Respiratory: clear, decreased breath sounds Abdomen: soft, non-tender, present bowel sounds Extremities: no edema, no tenderness, no cyanosis Laboratory Tests Test 03/08/20 05:50 White Blood Count 8.2 K/UL (4.8-10.8) Red Blood Count 3.53 M/UL (4.70-6.10) L Hemoglobin 7.7 G/DL (14.2-18.0) L Hematocrit 24.3 % (42.0-52.0) L Mean Corpuscular Volume 69 FL (80-99) L Mean Corpuscular Hemoglobin 21.9 PG (27.0-31.0) L Mean Corpuscular Hemoglobin Concent 31.7 G/DL (32.0-36.0) L Red Cell Distribution Width 16.9 % (11.6-14.8) H Platelet Count 174 K/UL (150-450) Mean Platelet Volume 6.5 FL (6.5-10.1) Neutrophils (%) (Auto) % (45.0-75.0) Lymphocytes (%) (Auto) % (20.0-45.0) Monocytes (%) (Auto) % (1.0-10.0) Eosinophils (%) (Auto) % (0.0-3.0) Basophils (%) (Auto) % (0.0-2.0) Differential Total Cells Counted 100 Neutrophils % (Manual) 79 % (45-75) H Lymphocytes % (Manual) 12 % (20-45) L Monocytes % (Manual) 7 % (1-10) Eosinophils % (Manual) 1 % (0-3) Basophils % (Manual) 1 % (0-2) Band Neutrophils 0 % (0-8) Platelet Estimate Adequate Platelet Morphology Normal Hypochromasia 3+ Anisocytosis 1+ Microcytosis 2+ Sodium Level 139 MMOL/L (136-145) Potassium Level 3.8 MMOL/L (3.5-5.1) Chloride Level 106 MMOL/L (98-107) Carbon Dioxide Level 23 MMOL/L (21-32) Anion Gap 10 mmol/L (5-15) Blood Urea Nitrogen 16 mg/dL (7-18) Creatinine 1.2 MG/DL (0.55-1.30) Estimat Glomerular Filtration Rate > 60 mL/min (>60) Glucose Level 59 MG/DL (74-106) L Calcium Level 9.2 MG/DL (8.5-10.1) Magnesium Level 1.8 MG/DL (1.8-2.4) Pro-B-Type Natriuretic Peptide 2048 pg/mL (0-125) H Plan Problems: (1) Right lower lobe pneumonia Assessment & Plan: Findings: There is a moderate size right pleural effusion. Opacity at the right lung base may be secondary to the pleural fluid, but infiltrate also likely. The heart is enlarged. There is a left chest pacemaker. The left lung and pleural space are clear. The right upper lobe is clear. Impression: Right basilar moderate pleural effusion and likely parenchymal consolidation Cardiomegaly Pacemaker cont abx pending micro (2) Failure to thrive Assessment & Plan: DAILY ESTIMATED NEEDS: Needs based on Wounds/ 70.5kg 25-30 kcals/kg 0845-0565 total kcals 1.25-2 g protein/kg 88-141 g total protein 25-30 mL/kg 4438-1384 total fluid mLs NUTRITION DIAGNOSIS: Increased kcal/prot/micronutrients needs R/T wound healing as evidenced by pt admitted w/ multiple advanced wounds, pending evaluation. CURRENT DIET:REGULAR PO DIET RECOMMENDATIONS: REGULAR/ texture as tolerated ADDITIONAL RECOMMENDATIONS: * Calibrated bedscale wt for accurate CBW * Consider Calorie Count x 48 hrs- FTT dx * Add Ensure Enlive BID for now, monitor need to increase * Wound healing: add MVI w/ mineral 1 tab QD, Vit C 500mg BID add ZnSO4 220mg QD x 10 days add David 1pkt BID (3) UTI (urinary tract infection) (4) Decubitus skin ulcer Assessment & Plan: Pt presented on admission with multiple pressure injuries. 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 100% slough at base of wound with marginal erythema along borders.` Unstageable pressure injury lateral R 1st metatarsal and L Hallux. Base of wound is 100% necrotic. Borders and periwound are callused. Unstageable Pressure Injury R heel. Base of wound is 100% necrotic with callused borders.In close proximity but extending into medial aspect of heel is a DTPI. Base of wound is purple with maroon borders. Dry cracked skin periwound. DTPI Plantar L heel. Unstageable pressure L lateral malleolus. 100% yellow slough with surrounding dry black borders. No exudate noted. Proximally to L malleolus Elongated area that is maroon in color. will likely plan for debridement of sacral wound as could use given how large and ill it is Tx.Plan: Cleanse Sacral wound with Dakin's 0.125% ashleigh. Apply Dakin's moistened Gauze to wound. Cover with Optifoam drsg Daily and prn. Apply Betadine to R foot wounds. Cover with ABD Pads and wrap with Kerlix Every 3 days and prn. Apply Betadine to L foot Wounds. Cover with ABD Pads and Wrap with Kerlix every 3 days and prn. APM/BHAVESH Mattress overlay. Reposition at least every 2hours or as tolerated. Off-load heels with Pillow. Yao Mccarty Mar 08, 2020 19:39
[2020-03-08 20:00] VITALS: BP_SYST 107; BP_SYST 159; BP_DIAS 68; BP_DIAS 69
--- NOTE | 2020-03-08 20:26 | NUR ---
NURSE NOTES: RECEIVED PATIENT FROM TERRI SHOEMAKER. PATIENT IS AWAKE, AAOX2, ON ROOM AIR, NO ACUTE DISTRESS NOTED. WOUND DRESSINGS INTACT AND DRY. IV INTACT AND PATENT. PACEMAKER NOTED ON LEFT CHEST. BED IS LOCKED AND LOW, BED ALARMS NOTED, SIDE RAILS UPX2 AND CALL LIGHT IS WITHIN REACH. WILL CONTINUE TO MONITOR.
[2020-03-08] MEDS: OLANZapine 2.5mg tab ORAL SCH (20:54)
[2020-03-08] MEDS: Iron Sucrose 100 MG in NS 55 ML IV SCH (20:55)
[2020-03-08] MEDS: Enoxaparin 40mg Inj SUBQ SCH (20:56)
--- NOTE | 2020-03-08 22:21 | Psych Consult Progress Note ---
Psychiatry Progress Note Psychiatry Progress Note Medications Current Medications Medications (Trade) Dose Ordered Sig/Ramiro Route PRN Reason Start Time Stop Time Status Last Admin Dose Admin Acetaminophen (Tylenol) 650 mg Q4H PRN ORAL Mild Pain (Pain Scale 1-3) 02/28/20 17:45 03/29/20 17:44 02/29/20 06:24 Amlodipine Besylate (Norvasc) 2.5 mg DAILY ORAL 03/05/20 09:00 04/04/20 08:59 Ascorbic Acid (Vitamin C) 500 mg TWICE A DAY ORAL 02/29/20 18:00 03/30/20 17:59 03/08/20 17:37 Bisacodyl (Dulcolax) 10 mg DAILYPRN PRN ORAL Constipation 02/28/20 18:00 05/28/20 17:44 Dextrose (Dextrose 50%) 25 ml Q30M PRN IV Hypoglycemia 02/28/20 17:45 05/28/20 17:44 Dextrose (Dextrose 50%) 50 ml Q30M PRN IV Hypoglycemia 02/28/20 17:45 05/28/20 17:44 Enoxaparin Sodium (Lovenox) 40 mg Q24H SUBQ 02/28/20 21:00 05/28/20 20:59 03/08/20 20:56 Famotidine (Pepcid) 40 mg DAILY ORAL 02/29/20 09:00 05/29/20 08:59 03/08/20 09:19 Folic Acid (Folate) 1 mg DAILY ORAL 03/08/20 09:00 04/07/20 08:59 03/08/20 09:19 Iron Sucrose 100 mg/Sodium Chloride 60 ml @ 240 mls/hr BEDTIME IV 03/08/20 21:00 03/12/20 21:14 03/08/20 20:55 Magnesium Hydroxide (Mom) 30 ml DAILYPRN PRN ORAL Constipation 02/28/20 17:45 03/29/20 17:44 Multivitamins (Multivitamins W/ Minerals 15ml Liquid) 15 ml DAILY GT 03/01/20 09:00 03/31/20 08:59 03/08/20 09:19 Olanzapine (ZyPREXA) 2.5 mg BEDTIME ORAL 03/08/20 21:00 04/22/20 20:59 03/08/20 20:54 Olanzapine (ZyPREXA) 2.5 mg EVERY 6 HOURS PRN ORAL agitation 03/04/20 00:00 04/18/20 00:00 Ondansetron HCl (Zofran) 4 mg Q6H PRN IVP Nausea & Vomiting 02/28/20 17:45 03/29/20 17:44 Sodium Hypochlorite (Dakin's Quarter Strength) 1 applic DAILY TOPIC 03/01/20 09:00 03/31/20 08:59 03/08/20 09:19 Sodium Phosphate (Fleet's Sodium Phosl Enema) 133 ml DAILYPRN PRN RECTAL Constipation 02/28/20 17:45 03/29/20 17:44 Zinc Sulfate (Zinc Sulfate) 220 mg DAILY ORAL 03/01/20 09:00 05/30/20 08:59 03/08/20 09:19 Allergies: Coded Allergies: No Known Allergies (Unverified , 02/28/20) Objective Data Height (Feet): 5 Height (Inches): 8.00 Weight (Pounds): 151 Assessment/Plan Status: unchanged William Lopez MD Mar 08, 2020 22:21
--- NOTE | 2020-03-08 22:30 | Progress Note ---
DATE: 03/07/2020 SUBJECTIVE: The patient is refusing medications. PLAN: We will discontinue the Zyprexa as he is calmer today, Zyprexa as needed. William Lopez M.D. DR: AILEEN JOB#: [id number] CC:
[2020-03-09] VITALS: BP 119/71
[2020-03-09 04:00] VITALS: BP 158/72
--- NOTE | 2020-03-09 05:40 | NUR ---
NURSE NOTES: CHANGED SACRAL WOUND DRESSING.
--- NOTE | 2020-03-09 07:51 | NUR ---
NURSE NOTES: Patient asleep, on room air, no sing of shortness of breath and distress; no sing of chest pain; IV Left For-Arm flushes well; wound dressings dry and intact; side rails up x2, breaks engaged, bed at lowest position, bed alarm on; call light within reach;
--- NOTE | 2020-03-09 07:53 | NUR ---
HAND-OFF: Report given to TERRI Fernandez. Endorsed plan of care.
[2020-03-09 08:00] VITALS: BP 144/80
[2020-03-09] MEDS: Zinc Sulfate 220mg cap ORAL SCH (08:48)
[2020-03-09] MEDS: Ascorbic Acid 500mg tab ORAL SCH ×2 (08:48→17:12)
[2020-03-09] MEDS: Multivitamins W/Minerals 15 ML UDC GT SCH (08:49)
[2020-03-09] MEDS: Dakin's 0.125% Soln (Quarter Strength) 16oz TOPIC SCH (08:50)
[2020-03-09 12:00] VITALS: BP 133/73
--- NOTE | 2020-03-09 12:26 | Pulmonology Progress Note ---
Assessment/Plan Assessment/Plan IMPRESSION: 1. Endocarditis, off antibiotics. 2. Acute anemia, status post PRBC. 3. Ruled out COVID-19 x1. Second swab also negative. 4. Agitation; seen by psych 5. UTI, MDR DISCUSSION: Continue current medications and care. The patient has a Odonnell catheter in place. The patient has been found to have urine positive for MDR. Consulted and seen by ID. I will continue to follow carefully. Discharge planning back to [facility] facility today. Does not need ASHLEY to confirm resolution of endocarditis; discussed with cardiology Feliciano Angel M.D. Subjective ROS Limited/Unobtainable: Yes Interval Events: None new; seen by ID; second pcr pending Constitutional: Reports: no symptoms HEENT: Repors: no symptoms Respiratory: Reports: no symptoms Cardiovascular: Reports: no symptoms Gastrointestinal/Abdominal: Reports: no symptoms Genitourinary: Reports: no symptoms Allergies: Coded Allergies: No Known Allergies (Unverified , 02/28/20) All Systems: reviewed and negative except above Objective Last 24 Hour Vital Signs Date Time Temp Pulse Resp B/P (MAP) Pulse Ox O2 Delivery O2 Flow Rate FiO2 03/09/20 12:00 97.3 67 20 133/73 (93) 96 03/09/20 09:00 Room Air 03/09/20 08:48 87 144/80 03/09/20 08:00 98.0 87 21 144/80 (101) 98 03/09/20 04:00 98.1 85 22 158/72 (100) 99 03/09/20 00:00 98.6 84 24 119/71 (87) 98 03/08/20 21:00 Room Air 03/08/20 20:00 98.2 89 19 107/69 (82) 96 03/08/20 16:00 98.0 85 18 125/78 (94) 97 Intake and Output 03/08/20 03/09/20 19:00 07:00 Intake Total 820 ml 240 ml Balance 820 ml 240 ml Intake Oral 820 ml IV Total 240 ml # Voids 2 # Bowel Movements 1 General Appearance: no acute distress HEENT: normocephalic Respiratory/Chest: chest wall non-tender, lungs clear Cardiovascular: normal peripheral pulses Abdomen: soft, non tender Extremities: no edema Neurologic/Psychiatric: alert, responsive Musculoskeletal: atrophy Current Medications Medications (Trade) Dose Ordered Sig/Ramiro Route PRN Reason Start Time Stop Time Status Last Admin Dose Admin Acetaminophen (Tylenol) 650 mg Q4H PRN ORAL Mild Pain (Pain Scale 1-3) 02/28/20 17:45 03/29/20 17:44 02/29/20 06:24 Amlodipine Besylate (Norvasc) 2.5 mg DAILY ORAL 03/05/20 09:00 04/04/20 08:59 03/09/20 08:48 Ascorbic Acid (Vitamin C) 500 mg TWICE A DAY ORAL 02/29/20 18:00 03/30/20 17:59 03/09/20 08:48 Bisacodyl (Dulcolax) 10 mg DAILYPRN PRN ORAL Constipation 02/28/20 18:00 05/28/20 17:44 Dextrose (Dextrose 50%) 25 ml Q30M PRN IV Hypoglycemia 02/28/20 17:45 05/28/20 17:44 Dextrose (Dextrose 50%) 50 ml Q30M PRN IV Hypoglycemia 02/28/20 17:45 05/28/20 17:44 Enoxaparin Sodium (Lovenox) 40 mg Q24H SUBQ 02/28/20 21:00 05/28/20 20:59 03/08/20 20:56 Famotidine (Pepcid) 40 mg DAILY ORAL 02/29/20 09:00 05/29/20 08:59 03/09/20 08:48 Folic Acid (Folate) 1 mg DAILY ORAL 03/08/20 09:00 04/07/20 08:59 03/09/20 08:48 Iron Sucrose 100 mg/Sodium Chloride 60 ml @ 240 mls/hr BEDTIME IV 03/08/20 21:00 03/12/20 21:14 03/08/20 20:55 Magnesium Hydroxide (Mom) 30 ml DAILYPRN PRN ORAL Constipation 02/28/20 17:45 03/29/20 17:44 Multivitamins (Multivitamins W/ Minerals 15ml Liquid) 15 ml DAILY GT 03/01/20 09:00 5/18/20 08:59 03/09/20 08:49 Olanzapine (ZyPREXA) 2.5 mg BEDTIME ORAL 03/08/20 21:00 04/22/20 20:59 03/08/20 20:54 Olanzapine (ZyPREXA) 2.5 mg EVERY 6 HOURS PRN ORAL agitation 03/04/20 00:00 04/18/20 00:00 Ondansetron HCl (Zofran) 4 mg Q6H PRN IVP Nausea & Vomiting 02/28/20 17:45 03/29/20 17:44 Sodium Hypochlorite (Dakin's Quarter Strength) 1 applic DAILY TOPIC 03/01/20 09:00 03/31/20 08:59 03/09/20 08:50 Sodium Phosphate (Fleet's Sodium Phosl Enema) 133 ml DAILYPRN PRN RECTAL Constipation 02/28/20 17:45 03/29/20 17:44 Zinc Sulfate (Zinc Sulfate) 220 mg DAILY ORAL 03/01/20 09:00 05/30/20 08:59 03/09/20 08:48 Feliciano Angel MD Mar 09, 2020 12:26
--- NOTE | 2020-03-09 13:09 | Infectious Diseases Prog Note ---
Assessment/Plan Assessment/Plan A 1. pseudomonas UTI treated 2. hypertension 3. COVID19 X 2 negative 4. recent aortic valve endocarditis P 1. observe off antibiotics Subjective ROS Limited/Unobtainable: No Constitutional: Reports: no symptoms Respiratory: Reports: no symptoms Cardiovascular: Reports: no symptoms Gastrointestinal/Abdominal: Reports: no symptoms Genitourinary: Reports: no symptoms Allergies: Coded Allergies: No Known Allergies (Unverified , 02/28/20) Objective Vital Signs Last 24 Hour Vital Signs Date Time Temp Pulse Resp B/P (MAP) Pulse Ox O2 Delivery O2 Flow Rate FiO2 03/09/20 12:00 97.3 67 20 133/73 (93) 96 03/09/20 09:00 Room Air 03/09/20 08:48 87 144/80 03/09/20 08:00 98.0 87 21 144/80 (101) 98 03/09/20 04:00 98.1 85 22 158/72 (100) 99 03/09/20 00:00 98.6 84 24 119/71 (87) 98 03/08/20 21:00 Room Air 03/08/20 20:00 98.2 89 19 107/69 (82) 96 03/08/20 16:00 98.0 85 18 125/78 (94) 97 Height (Feet): 5 Height (Inches): 8.00 Weight (Pounds): 151 General Appearance: no acute distress HEENT: mucous membranes moist Respiratory/Chest: lungs clear Cardiovascular: normal rate Abdomen: soft, non tender Extremities: no edema Neurologic/Psychiatric: alert, responsive Musculoskeletal: atrophy Current Medications Medications (Trade) Dose Ordered Sig/Ramiro Route PRN Reason Start Time Stop Time Status Last Admin Dose Admin Acetaminophen (Tylenol) 650 mg Q4H PRN ORAL Mild Pain (Pain Scale 1-3) 02/28/20 17:45 03/29/20 17:44 02/29/20 06:24 Amlodipine Besylate (Norvasc) 2.5 mg DAILY ORAL 03/05/20 09:00 04/04/20 08:59 03/09/20 08:48 Ascorbic Acid (Vitamin C) 500 mg TWICE A DAY ORAL 02/29/20 18:00 03/30/20 17:59 03/09/20 08:48 Bisacodyl (Dulcolax) 10 mg DAILYPRN PRN ORAL Constipation 4/16/20 18:00 05/28/20 17:44 Dextrose (Dextrose 50%) 25 ml Q30M PRN IV Hypoglycemia 02/28/20 17:45 05/28/20 17:44 Dextrose (Dextrose 50%) 50 ml Q30M PRN IV Hypoglycemia 02/28/20 17:45 05/28/20 17:44 Enoxaparin Sodium (Lovenox) 40 mg Q24H SUBQ 02/28/20 21:00 05/28/20 20:59 03/08/20 20:56 Famotidine (Pepcid) 40 mg DAILY ORAL 02/29/20 09:00 05/29/20 08:59 03/09/20 08:48 Folic Acid (Folate) 1 mg DAILY ORAL 03/08/20 09:00 04/07/20 08:59 03/09/20 08:48 Iron Sucrose 100 mg/Sodium Chloride 60 ml @ 240 mls/hr BEDTIME IV 03/08/20 21:00 03/12/20 21:14 03/08/20 20:55 Magnesium Hydroxide (Mom) 30 ml DAILYPRN PRN ORAL Constipation 02/28/20 17:45 03/29/20 17:44 Multivitamins (Multivitamins W/ Minerals 15ml Liquid) 15 ml DAILY GT 03/01/20 09:00 03/31/20 08:59 03/09/20 08:49 Olanzapine (ZyPREXA) 2.5 mg BEDTIME ORAL 03/08/20 21:00 04/22/20 20:59 03/08/20 20:54 Olanzapine (ZyPREXA) 2.5 mg EVERY 6 HOURS PRN ORAL agitation 03/04/20 00:00 04/18/20 00:00 Ondansetron HCl (Zofran) 4 mg Q6H PRN IVP Nausea & Vomiting 02/28/20 17:45 03/29/20 17:44 Sodium Hypochlorite (Dakin's Quarter Strength) 1 applic DAILY TOPIC 03/01/20 09:00 03/31/20 08:59 03/09/20 08:50 Sodium Phosphate (Fleet's Sodium Phosl Enema) 133 ml DAILYPRN PRN RECTAL Constipation 02/28/20 17:45 03/29/20 17:44 Zinc Sulfate (Zinc Sulfate) 220 mg DAILY ORAL 03/01/20 09:00 05/30/20 08:59 03/09/20 08:48 Gage Oquendo MD Mar 09, 2020 13:08
[2020-03-09 16:00] VITALS: BP 131/72
--- NOTE | 2020-03-09 19:20 | NUR ---
HAND-OFF: Report given to TERRI Grimes.
--- NOTE | 2020-03-09 19:30 | NUR ---
NURSE NOTES: RECEIVED PATIENT FROM TERRI CHRISTIE. PATIENT IS AWAKE, AAOX2, ON ROOM AIR, NO ACUTE DISTRESS NOTED. WOUND DRESSINGS INTACT AND DRY. IV INTACT AND PATENT. PACEMAKER NOTED ON LEFT CHEST. CONDOM CATH IN PLACE, DRAINING WELL, NO IRRITATION. BED IS LOCKED AND LOW, BED ALARMS NOTED, SIDE RAILS UPX2 AND CALL LIGHT IS WITHIN REACH. WILL CONTINUE TO MONITOR.
[2020-03-09 20:00] VITALS: BP 124/75
[2020-03-09] MEDS: OLANZapine 2.5mg tab ORAL SCH (22:00)
[2020-03-09] MEDS: Iron Sucrose 100 MG in NS 55 ML IV SCH (22:00)
[2020-03-09] MEDS: Enoxaparin 40mg Inj SUBQ SCH (22:01)
--- NOTE | 2020-03-09 22:05 | Surgery Progress Note ---
Surgery Progress Note Subjective Symptoms: improved, tolerating diet, voiding well, passing flatus, BM Objective Last 24 Hour Vital Signs Date Time Temp Pulse Resp B/P (MAP) Pulse Ox O2 Delivery O2 Flow Rate FiO2 03/09/20 16:00 97.8 73 19 131/72 (91) 97 03/09/20 12:00 97.3 67 20 133/73 (93) 96 03/09/20 09:00 Room Air 03/09/20 08:48 87 144/80 03/09/20 08:00 98.0 87 21 144/80 (101) 98 03/09/20 04:00 98.1 85 22 158/72 (100) 99 03/09/20 00:00 98.6 84 24 119/71 (87) 98 I&O Intake and Output 03/08/20 03/09/20 19:00 07:00 Intake Total 820 ml 240 ml Balance 820 ml 240 ml Intake Oral 820 ml IV Total 240 ml # Voids 2 # Bowel Movements 1 Dressing: dry Wound: clean Cardiovascular: RSR Respiratory: clear Abdomen: soft, flat, non-tender, present bowel sounds Extremities: no edema, no tenderness, no cyanosis Plan Problems: (1) Right lower lobe pneumonia Assessment & Plan: Findings: There is a moderate size right pleural effusion. Opacity at the right lung base may be secondary to the pleural fluid, but infiltrate also likely. The heart is enlarged. There is a left chest pacemaker. The left lung and pleural space are clear. The right upper lobe is clear. Impression: Right basilar moderate pleural effusion and likely parenchymal consolidation Cardiomegaly Pacemaker cont abx pending micro (2) Failure to thrive Assessment & Plan: DAILY ESTIMATED NEEDS: Needs based on Wounds/ 70.5kg 25-30 kcals/kg 4609-2572 total kcals 1.25-2 g protein/kg 88-141 g total protein 25-30 mL/kg 3003-6451 total fluid mLs NUTRITION DIAGNOSIS: Increased kcal/prot/micronutrients needs R/T wound healing as evidenced by pt admitted w/ multiple advanced wounds, pending evaluation. CURRENT DIET:REGULAR PO DIET RECOMMENDATIONS: REGULAR/ texture as tolerated ADDITIONAL RECOMMENDATIONS: * Calibrated bedscale wt for accurate CBW * Consider Calorie Count x 48 hrs- FTT dx * Add Ensure Enlive BID for now, monitor need to increase * Wound healing: add MVI w/ mineral 1 tab QD, Vit C 500mg BID add ZnSO4 220mg QD x 10 days add David 1pkt BID (3) UTI (urinary tract infection) (4) Decubitus skin ulcer Assessment & Plan: Pt presented on admission with multiple pressure injuries. 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 100% slough at base of wound with marginal erythema along borders.` Unstageable pressure injury lateral R 1st metatarsal and L Hallux. Base of wound is 100% necrotic. Borders and periwound are callused. Unstageable Pressure Injury R heel. Base of wound is 100% necrotic with callused borders.In close proximity but extending into medial aspect of heel is a DTPI. Base of wound is purple with maroon borders. Dry cracked skin periwound. DTPI Plantar L heel. Unstageable pressure L lateral malleolus. 100% yellow slough with surrounding dry black borders. No exudate noted. Proximally to L malleolus Elongated area that is maroon in color. will likely plan for debridement of sacral wound as could use given how large and ill it is Tx.Plan: Cleanse Sacral wound with Dakin's 0.125% ashleigh. Apply Dakin's moistened Gauze to wound. Cover with Optifoam drsg Daily and prn. Apply Betadine to R foot wounds. Cover with ABD Pads and wrap with Kerlix Every 3 days and prn. Apply Betadine to L foot Wounds. Cover with ABD Pads and Wrap with Kerlix every 3 days and prn. APM/BHAVESH Mattress overlay. Reposition at least every 2hours or as tolerated. Off-load heels with Pillow. Yao Mccarty Mar 09, 2020 22:05
[2020-03-10] VITALS: BP 115/81
[2020-03-10 04:00] VITALS: BP 124/75
--- NOTE | 2020-03-10 04:45 | Progress Note ---
DATE: 03/08/2020 CARDIOLOGY PROGRESS NOTE SUBJECTIVE: No distress. Wound care ongoing, status post packed red blood cell transfusion for anemia. Negative COVID-19 swab x2. PHYSICAL EXAMINATION: VITAL SIGNS: Blood pressure 107/64, pulse 75, respirations 20, afebrile. LUNGS: Good breath sounds. No rales. CARDIAC: Regular rhythm and rate. Normal S1, S2 with a 1/4 diastolic decrescendo. ABDOMEN: Soft. EXTREMITIES: No edema. Wounds have dressings. IMPRESSION: 1. Aortic valve endocarditis, status post therapy. 2. No signs of recurring bacteremia, hemodynamically significant valve regurgitation. 3. Anemia of chronic disease. 4. 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 PLAN: 1. Maintain therapy for aortic insufficiency. 2. Prophylactic antibiotics for any future instrumentation or dental work. Yovany Durant M.D. DR: GISELLE JOB#: [id number] CC:
--- NOTE | 2020-03-10 05:00 | Progress Note ---
DATE: 03/09/2020 CARDIOLOGY PROGRESS NOTE SUBJECTIVE: The patient without shortness of breath, palpitations, or chest pain. PHYSICAL EXAMINATION: VITAL SIGNS: Blood pressure parameters ranging from 107/69 to 158/72, heart rate in the 67 to 90 range, afebrile, respiratory rate 19 to 22. LUNGS: Clear. CARDIAC: Regular rhythm and rate. Normal S1, S2 with a 1/4 diastolic decrescendo. ABDOMEN: Soft. EXTREMITIES: No edema. There are lower extremity wounds with ongoing treatments as outlined by surgeon. There are no Osler nodes noted. IMPRESSION: 1. 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 2. Negative COVID-19 swab. 3. Anemia of chronic disease. PLAN: 1. No additional antimicrobials. 2. Anticipate antibiotic prophylaxis in the future for any procedures or instrumentation or dental work. 3. Monitor for clinical signs of heart failure that may suggest deterioration of valvular insufficiency. Yovany Durant M.D. DR: GISELLE JOB#: [id number] CC:
[2020-03-10 08:00] VITALS: BP 121/74
--- NOTE | 2020-03-10 08:00 | NUR ---
NURSE NOTES: Received report from Grimes RN, pt a/a/o laying in bed with no signs of distress. 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 Iv on the left FA gauge #22 heplock. pt has a condom cath in place draining well. call light within reach, bed in lowest position. side rales up x2. I will f/u as needed.
[2020-03-10] MEDS: Ascorbic Acid 500mg tab ORAL SCH ×2 (08:37→17:30)
[2020-03-10] MEDS: Multivitamins W/Minerals 15 ML UDC GT SCH (08:37)
[2020-03-10] MEDS: Zinc Sulfate 220mg cap ORAL SCH (08:37)
[2020-03-10] MEDS: Dakin's 0.125% Soln (Quarter Strength) 16oz TOPIC SCH (08:38)
--- NOTE | 2020-03-10 10:54 | Infectious Diseases Prog Note ---
Assessment/Plan Assessment/Plan antibiotics : none A 1. pseudomonas UTI s/p rx 2. hypertension 3. COVID 19 negative x 2, 4.16.20, 4.20.20 4. recent aortic valve endocarditis P 1. observe off antibiotics 2. will follow up cultures Subjective ROS Limited/Unobtainable: Yes Allergies: Coded Allergies: No Known Allergies (Unverified , 02/28/20) Objective Vital Signs Last 24 Hour Vital Signs Date Time Temp Pulse Resp B/P (MAP) Pulse Ox O2 Delivery O2 Flow Rate FiO2 03/10/20 08:37 75 121/74 03/10/20 08:00 98.3 75 20 121/74 (90) 96 03/10/20 04:00 98.0 71 19 124/75 (91) 98 03/10/20 00:00 97.9 73 19 115/81 (92) 96 03/09/20 21:00 Room Air 03/09/20 20:00 98.0 71 19 124/75 (91) 98 03/09/20 16:00 97.8 73 19 131/72 (91) 97 03/09/20 12:00 97.3 67 20 133/73 (93) 96 Height (Feet): 5 Height (Inches): 8.00 Weight (Pounds): 151 Current Medications Medications (Trade) Dose Ordered Sig/Ramiro Route PRN Reason Start Time Stop Time Status Last Admin Dose Admin Acetaminophen (Tylenol) 650 mg Q4H PRN ORAL Mild Pain (Pain Scale 1-3) 02/28/20 17:45 03/29/20 17:44 02/29/20 06:24 Amlodipine Besylate (Norvasc) 2.5 mg DAILY ORAL 03/05/20 09:00 04/04/20 08:59 03/10/20 08:37 Ascorbic Acid (Vitamin C) 500 mg TWICE A DAY ORAL 02/29/20 18:00 03/30/20 17:59 03/10/20 08:37 Bisacodyl (Dulcolax) 10 mg DAILYPRN PRN ORAL Constipation 02/28/20 18:00 05/28/20 17:44 Dextrose (Dextrose 50%) 25 ml Q30M PRN IV Hypoglycemia 02/28/20 17:45 05/28/20 17:44 Dextrose (Dextrose 50%) 50 ml Q30M PRN IV Hypoglycemia 02/28/20 17:45 05/28/20 17:44 Enoxaparin Sodium (Lovenox) 40 mg Q24H SUBQ 02/28/20 21:00 05/28/20 20:59 03/09/20 22:01 Famotidine (Pepcid) 40 mg DAILY ORAL 02/29/20 09:00 05/29/20 08:59 03/10/20 08:37 Folic Acid (Folate) 1 mg DAILY ORAL 03/08/20 09:00 04/07/20 08:59 03/10/20 08:37 Iron Sucrose 100 mg/Sodium Chloride 60 ml @ 240 mls/hr BEDTIME IV 03/08/20 21:00 03/12/20 21:14 03/09/20 22:00 Magnesium Hydroxide (Mom) 30 ml DAILYPRN PRN ORAL Constipation 02/28/20 17:45 03/29/20 17:44 Multivitamins (Multivitamins W/ Minerals 15ml Liquid) 15 ml DAILY GT 03/01/20 09:00 03/31/20 08:59 03/10/20 08:37 Olanzapine (ZyPREXA) 2.5 mg BEDTIME ORAL 03/08/20 21:00 04/22/20 20:59 03/09/20 22:00 Olanzapine (ZyPREXA) 2.5 mg EVERY 6 HOURS PRN ORAL agitation 03/04/20 00:00 04/18/20 00:00 Ondansetron HCl (Zofran) 4 mg Q6H PRN IVP Nausea & Vomiting 02/28/20 17:45 03/29/20 17:44 Sodium Hypochlorite (Dakin's Quarter Strength) 1 applic DAILY TOPIC 03/01/20 09:00 03/31/20 08:59 03/10/20 08:38 Sodium Phosphate (Fleet's Sodium Phosl Enema) 133 ml DAILYPRN PRN RECTAL Constipation 02/28/20 17:45 03/29/20 17:44 Zinc Sulfate (Zinc Sulfate) 220 mg DAILY ORAL 03/01/20 09:00 05/30/20 08:59 03/10/20 08:37 Ana Paula Mccord MD Mar 10, 2020 10:54
--- NOTE | 2020-03-10 11:24 | Pulmonology Progress Note ---
Assessment/Plan Assessment/Plan IMPRESSION: 1. Endocarditis, off antibiotics. 2. Acute anemia, status post PRBC. 3. Ruled out COVID-19 x1. Second swab also negative. 4. Agitation; seen by psych 5. UTI, MDR DISCUSSION: Continue current medications and care. The patient has a Odonnell catheter in place. The patient has been found to have urine positive for MDR. Consulted and seen by ID. I will continue to follow carefully. Discharge planning back to assisted facility today. Does not need ASHLEY to confirm resolution of endocarditis; discussed with cardiology Feliciano Angel M.D. Subjective ROS Limited/Unobtainable: Yes Interval Events: None new; seen by ID; second pcr pending Constitutional: Reports: no symptoms HEENT: Repors: no symptoms Respiratory: Reports: no symptoms Cardiovascular: Reports: no symptoms Gastrointestinal/Abdominal: Reports: no symptoms Genitourinary: Reports: no symptoms Allergies: Coded Allergies: No Known Allergies (Unverified , 02/28/20) All Systems: reviewed and negative except above Objective Last 24 Hour Vital Signs Date Time Temp Pulse Resp B/P (MAP) Pulse Ox O2 Delivery O2 Flow Rate FiO2 03/10/20 08:37 75 121/74 03/10/20 08:00 98.3 75 20 121/74 (90) 96 03/10/20 04:00 98.0 71 19 124/75 (91) 98 03/10/20 00:00 97.9 73 19 115/81 (92) 96 03/09/20 21:00 Room Air 03/09/20 20:00 98.0 71 19 124/75 (91) 98 03/09/20 16:00 97.8 73 19 131/72 (91) 97 03/09/20 12:00 97.3 67 20 133/73 (93) 96 Intake and Output 03/09/20 03/10/20 19:00 07:00 Intake Total 820 ml 240 ml Output Total 800 ml 550 ml Balance 20 ml -310 ml Intake Oral 820 ml IV Total 240 ml Output Urine Total 800 ml 550 ml # Voids 1 # Bowel Movements 1 General Appearance: no acute distress HEENT: mucous membranes moist Respiratory/Chest: chest wall non-tender, lungs clear Cardiovascular: normal peripheral pulses Abdomen: soft, non tender Extremities: no edema Neurologic/Psychiatric: alert, responsive Musculoskeletal: atrophy Current Medications Medications (Trade) Dose Ordered Sig/Ramiro Route PRN Reason Start Time Stop Time Status Last Admin Dose Admin Acetaminophen (Tylenol) 650 mg Q4H PRN ORAL Mild Pain (Pain Scale 1-3) 02/28/20 17:45 03/29/20 17:44 02/29/20 06:24 Amlodipine Besylate (Norvasc) 2.5 mg DAILY ORAL 03/05/20 09:00 04/04/20 08:59 03/10/20 08:37 Ascorbic Acid (Vitamin C) 500 mg TWICE A DAY ORAL 02/29/20 18:00 03/30/20 17:59 03/10/20 08:37 Bisacodyl (Dulcolax) 10 mg DAILYPRN PRN ORAL Constipation 02/28/20 18:00 05/28/20 17:44 Dextrose (Dextrose 50%) 25 ml Q30M PRN IV Hypoglycemia 02/28/20 17:45 05/28/20 17:44 Dextrose (Dextrose 50%) 50 ml Q30M PRN IV Hypoglycemia 02/28/20 17:45 05/28/20 17:44 Enoxaparin Sodium (Lovenox) 40 mg Q24H SUBQ 02/28/20 21:00 05/28/20 20:59 03/09/20 22:01 Famotidine (Pepcid) 40 mg DAILY ORAL 02/29/20 09:00 05/29/20 08:59 03/10/20 08:37 Folic Acid (Folate) 1 mg DAILY ORAL 03/08/20 09:00 04/07/20 08:59 03/10/20 08:37 Iron Sucrose 100 mg/Sodium Chloride 60 ml @ 240 mls/hr BEDTIME IV 03/08/20 21:00 03/12/20 21:14 03/09/20 22:00 Magnesium Hydroxide (Mom) 30 ml DAILYPRN PRN ORAL Constipation 02/28/20 17:45 03/29/20 17:44 Multivitamins (Multivitamins W/ Minerals 15ml Liquid) 15 ml DAILY GT 03/01/20 09:00 03/31/20 08:59 03/10/20 08:37 Olanzapine (ZyPREXA) 2.5 mg BEDTIME ORAL 03/08/20 21:00 04/22/20 20:59 03/09/20 22:00 Olanzapine (ZyPREXA) 2.5 mg EVERY 6 HOURS PRN ORAL agitation 03/04/20 00:00 04/18/20 00:00 Ondansetron HCl (Zofran) 4 mg Q6H PRN IVP Nausea & Vomiting 02/28/20 17:45 03/29/20 17:44 Sodium Hypochlorite (Dakin's Quarter Strength) 1 applic DAILY TOPIC 03/01/20 09:00 03/31/20 08:59 03/10/20 08:38 Sodium Phosphate (Fleet's Sodium Phosl Enema) 133 ml DAILYPRN PRN RECTAL Constipation 02/28/20 17:45 03/29/20 17:44 Zinc Sulfate (Zinc Sulfate) 220 mg DAILY ORAL 03/01/20 09:00 05/30/20 08:59 03/10/20 08:37 Feliciano Angel MD Mar 10, 2020 11:24
[2020-03-10 12:00] VITALS: BP 109/66
--- NOTE | 2020-03-10 14:59 | NUR ---
[employer] OFFICER NOTE CALL MADE TO [facility] IN RE TO SNF PLACEMENT [phone]. S/W KIRSTEN WHO REFERRED CM TO CALL [phone]. REFERRED TO CALL PATIENTS PCP FOR SNF REFERRAL DR DARIUSZ ARMSTRONG [phone] DR ARZOLA OFFICE REFERRED CM TO CALL [phone] TO ATTEMPT TO SPEAK TO CM. NO ANSWER WITH HOLD TIME ANTICIPATED AT OVER 49 MIN. WILL CONTINUE TO FOLLOW UP AND REFER PATIENT FOR PLACEMENT
--- NOTE | 2020-03-10 15:08 | NUR ---
*-*DISCHARGE PLANNING*-* PATIENT HAS BEEN REFERRED TO: [facility] P: [phone] F: [phone] [facility] P: [phone] F: [phone] [facility] P: [phone] F: [phone] [facility] P: [phone] F: [phone] [facility] P: [phone] F: [phone] [facility] P: [phone] F: [phone] [facility] P: [phone] F: [phone] [facility] P: [phone] F: [phone] [facility] P: [phone] F: [phone] [facility] P: [phone] F: [phone] Addendum: 03/10/20 at 1602 by LUCA SOSA CM [facility] S/W RUPERT, "NOT ACCEPTING" [facility] S/W SHAILESH, "HAVE NOT REVIEWED REFERRAL YET" [facility] S/W MABLE, "NOT ACCEPTING ANY NEW PATIENTS" [facility] S/W ARMANI, "NOT ACCEPTING ANY PATIENTS" [facility] S/W JEANMARIE, REFAXED "HAVE NOT RECEIVED CLINICALS YET" [facility] S/ W [place], "HAVEN'T REVIEWED REFERRALS YET" [facility] S/W KLEBER, NOT ACCEPTING ANY ADMISSIONS UNTIL April [facility] S/W CARLOS, "NOT ACCEPTING ANY PATIENTS" [facility] S/W ARIELLA, "NOT ACCEPTING ANG PATIENTS" [facility] S/W ERYN, " NO MALE BEDS"
[2020-03-10 16:00] VITALS: BP 115/73
--- NOTE | 2020-03-10 16:20 | NUR ---
*-* INSURANCE *-* ALL CLINICALS AND REVIEWS HAVE BEEN FAXD TO: [facility] NCM:SCOOBY P: [phone] F: [phone] (FAX CLINICALS HERE AND TO JESSE [phone]) & [facility] JESSE NCM:PARI P: [phone] F: [phone] [place] Orders: [phone]
--- NOTE | 2020-03-10 16:42 | Surgery Progress Note ---
Surgery Progress Note Subjective Symptoms: improved, pain absent, tolerating diet, voiding well, passing flatus Objective Last 24 Hour Vital Signs Date Time Temp Pulse Resp B/P (MAP) Pulse Ox O2 Delivery O2 Flow Rate FiO2 03/10/20 16:00 97.7 62 20 115/73 (87) 92 03/10/20 12:00 97.7 65 18 109/66 (80) 92 03/10/20 09:00 Room Air 03/10/20 08:37 75 121/74 03/10/20 08:00 98.3 75 20 121/74 (90) 96 03/10/20 04:00 98.0 71 19 124/75 (91) 98 03/10/20 00:00 97.9 73 19 115/81 (92) 96 03/09/20 21:00 Room Air 03/09/20 20:00 98.0 71 19 124/75 (91) 98 I&O Intake and Output 03/09/20 03/10/20 19:00 07:00 Intake Total 820 ml 240 ml Output Total 800 ml 550 ml Balance 20 ml -310 ml Intake Oral 820 ml IV Total 240 ml Output Urine Total 800 ml 550 ml # Voids 1 # Bowel Movements 1 Dressing: dry Wound: clean Cardiovascular: RSR Respiratory: clear Abdomen: soft, flat, non-tender, present bowel sounds Extremities: no edema, no tenderness, no cyanosis Plan Problems: (1) Right lower lobe pneumonia Assessment & Plan: Findings: There is a moderate size right pleural effusion. Opacity at the right lung base may be secondary to the pleural fluid, but infiltrate also likely. The heart is enlarged. There is a left chest pacemaker. The left lung and pleural space are clear. The right upper lobe is clear. Impression: Right basilar moderate pleural effusion and likely parenchymal consolidation Cardiomegaly Pacemaker cont abx pending micro (2) Failure to thrive Assessment & Plan: DAILY ESTIMATED NEEDS: Needs based on Wounds/ 70.5kg 25-30 kcals/kg 7702-3023 total kcals 1.25-2 g protein/kg 88-141 g total protein 25-30 mL/kg 7188-2216 total fluid mLs NUTRITION DIAGNOSIS: Increased kcal/prot/micronutrients needs R/T wound healing as evidenced by pt admitted w/ multiple advanced wounds, pending evaluation. CURRENT DIET:REGULAR PO DIET RECOMMENDATIONS: REGULAR/ texture as tolerated ADDITIONAL RECOMMENDATIONS: * Calibrated bedscale wt for accurate CBW * Consider Calorie Count x 48 hrs- FTT dx * Add Ensure Enlive BID for now, monitor need to increase * Wound healing: add MVI w/ mineral 1 tab QD, Vit C 500mg BID add ZnSO4 220mg QD x 10 days add David 1pkt BID (3) UTI (urinary tract infection) (4) Decubitus skin ulcer Assessment & Plan: Pt presented on admission with multiple pressure injuries. 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 100% slough at base of wound with marginal erythema along borders.` Unstageable pressure injury lateral R 1st metatarsal and L Hallux. Base of wound is 100% necrotic. Borders and periwound are callused. Unstageable Pressure Injury R heel. Base of wound is 100% necrotic with callused borders.In close proximity but extending into medial aspect of heel is a DTPI. Base of wound is purple with maroon borders. Dry cracked skin periwound. DTPI Plantar L heel. Unstageable pressure L lateral malleolus. 100% yellow slough with surrounding dry black borders. No exudate noted. Proximally to L malleolus Elongated area that is maroon in color. will likely plan for debridement of sacral wound as could use given how large and ill it is Tx.Plan: Cleanse Sacral wound with Dakin's 0.125% ashleigh. Apply Dakin's moistened Gauze to wound. Cover with Optifoam drsg Daily and prn. Apply Betadine to R foot wounds. Cover with ABD Pads and wrap with Kerlix Every 3 days and prn. Apply Betadine to L foot Wounds. Cover with ABD Pads and Wrap with Kerlix every 3 days and prn. APM/BHAVESH Mattress overlay. Reposition at least every 2hours or as tolerated. Off-load heels with Pillow. Yao Mccarty Mar 10, 2020 16:42
--- NOTE | 2020-03-10 19:09 | NUR ---
HAND-OFF: Report given to Jackie MURRAY, pt in stable condition.
[2020-03-10 20:00] VITALS: BP 110/62
--- NOTE | 2020-03-10 20:00 | NUR ---
NURSE NOTES: Received patient awake in bed, able to make needs known, no s/s of acute distress. IV access patent, flushed with normal saline. Bed low and locked, needs attended to at this time.
[2020-03-10] MEDS: OLANZapine 2.5mg tab ORAL SCH (20:41)
[2020-03-10] MEDS: Iron Sucrose 100 MG in NS 55 ML IV SCH (20:41)
[2020-03-10] MEDS: Enoxaparin 40mg Inj SUBQ SCH (20:42)
[2020-03-11] VITALS: BP 128/79
--- NOTE | 2020-03-11 02:00 | Progress Note ---
DATE: 03/10/2020 HISTORY OF PRESENT ILLNESS: The patient is in bed, sleep, arousable. No behavior issues noted. Compliant. MENTAL STATUS EXAMINATION: Alert and oriented to time and self. Mood is neutral. Affect is flat. Thought process is concrete. Thought content, no suicidal or homicidal ideations. ASSESSMENT: Stable. PLAN: We will continue current medications. William Lopez M.D. DR: Bridget JOB#: [id number] CC:
[2020-03-11 04:00] VITALS: BP 120/69
--- NOTE | 2020-03-11 06:15 | Progress Note ---
DATE: 03/10/2020 SUBJECTIVE: Condition largely unchanged. Continues on wound care. 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 OBJECTIVE: VITAL SIGNS: Afebrile. Blood pressure 121/74, pulse 75, respiratory rate 20. LUNGS: Clear. CARDIAC: Regular. Normal S1, S2. 1/4 diastolic decrescendo. ABDOMEN: Soft. EXTREMITIES: No edema. LABORATORY DATA: Laboratories reviewed. IMPRESSION: 1. Hypertensive heart disease. 2. Status post aortic valve and pericarditis therapy with no signs of recurring bacteremia or infection. 3. Aortic insufficiency, compensated. 4. Pseudomonas urinary tract infection. PLAN: 1. Off antimicrobials. 2. Remains on afterload reduction and awaiting discharge to a [facility] facility. Yovany Durant M.D. DR: Jodie JOB#: [id number] CC:
--- NOTE | 2020-03-11 07:08 | NUR ---
HAND-OFF: Report given to TERRI Adkins.
--- NOTE | 2020-03-11 07:15 | NUR ---
NURSE NOTES: Report received from JHOAN RN. PAtient is awake and alert, no acute distress noted. Bed is low and locked, side rails up x2, call light within reach.
[2020-03-11 08:00] VITALS: BP 130/55
[2020-03-11] MEDS: Ascorbic Acid 500mg tab ORAL SCH ×2 (08:42→17:16)
[2020-03-11] MEDS: Zinc Sulfate 220mg cap ORAL SCH (08:42)
[2020-03-11] MEDS: Multivitamins W/Minerals 15 ML UDC GT SCH (08:42)
--- NOTE | 2020-03-11 09:59 | NUR ---
*-*DISCHARGE PLANNING*-* PATIENT HAS BEE REFERRED TO: [facility] P: [phone] F: [phone] [facility] P: [phone] F: [phone] [facility] P: [phone] F: [phone] [facility] P: [phone] F: [phone] [facility] P: [phone] F: [phone] [facility] P: [phone] F: [phone] [facility] P: [phone] F: [phone] [facility] P: [phone] F: [phone] [facility] P: [phone] F: [phone] [facility] P: [phone] F: [phone] ~~~~CLINICALS FAXED~~~~~~~~~~~~~~~~ Addendum: 03/11/20 at 1038 by LUCA OSSA CM *-*DISCHARGE PLANNING*-* PATIENT HAS BEE REFERRED TO: [facility] P: [phone] S/W ED, REFAXED [facility] P: [phone] S/W OLEG, NOT ACCEPTING ANY PATIENTS [facility] P: [phone] NO RESPONSE [facility] P: [phone] PHONE SUKHI HARMON, NO ANSWER [facility] P: [phone] S/W RUPERT, NOT ACCEPTING ANY PATIENTS [facility] P: [phone] S/W KLEBER, NOT TAKING ANY PATIENTS [facility] P: [phone] S/W CARLOS, NOT ACCEPTING ANY PATIENTS [facility] P: [phone] S/W ARIELLA, NOT ACCEPTING PATIENT [facility] P: [phone] S/W ARMANI, NO MALE BEDS [facility] P: [phone] S/W ABELARDO, NOT ACCEPTING ANY PATIENT ~~~~CLINICALS FAXED~~~~~~~~~~~~~~~~
--- NOTE | 2020-03-11 10:47 | NUR ---
*-* INSURANCE *-* ALL CLINICALS AND REVIEWS HAVE BEEN FAXD TO: [facility] NCM:SCOOBY P: [phone] F: [phone] (FAX CLINICALS HERE AND TO JESSE [phone]) & [facility] JESSE NCM:PARI P: [phone] F: [phone] [place] Orders: [phone]
--- NOTE | 2020-03-11 11:04 | Infectious Diseases Prog Note ---
Assessment/Plan Assessment/Plan antibiotics : none A 1. pseudomonas UTI s/p rx 2. hypertension 3. COVID 19 negative x 2, 4.16.20, 4.20.20 4. recent aortic valve endocarditis P 1. observe off antibiotics 2. will follow up cultures Subjective ROS Limited/Unobtainable: Yes Allergies: Coded Allergies: No Known Allergies (Unverified , 02/28/20) Objective Vital Signs Last 24 Hour Vital Signs Date Time Temp Pulse Resp B/P (MAP) Pulse Ox O2 Delivery O2 Flow Rate FiO2 03/11/20 08:41 92 130/55 03/11/20 08:00 97.0 92 18 130/55 (80) 92 03/11/20 04:00 97.3 70 20 120/69 (86) 92 03/11/20 00:00 98.4 75 20 128/79 (95) 92 03/10/20 22:19 Room Air 03/10/20 20:00 97.9 71 20 110/62 (78) 92 03/10/20 16:00 97.7 62 20 115/73 (87) 92 03/10/20 12:00 97.7 65 18 109/66 (80) 92 Height (Feet): 5 Height (Inches): 8.00 Weight (Pounds): 151 Respiratory/Chest: lungs clear Cardiovascular: normal rate, regular rhythm, no gallop/murmur Abdomen: soft, non tender Extremities: no edema Current Medications Medications (Trade) Dose Ordered Sig/Ramiro Route PRN Reason Start Time Stop Time Status Last Admin Dose Admin Acetaminophen (Tylenol) 650 mg Q4H PRN ORAL Mild Pain (Pain Scale 1-3) 02/28/20 17:45 03/29/20 17:44 02/29/20 06:24 Amlodipine Besylate (Norvasc) 2.5 mg DAILY ORAL 03/05/20 09:00 04/04/20 08:59 03/11/20 08:41 Ascorbic Acid (Vitamin C) 500 mg TWICE A DAY ORAL 02/29/20 18:00 03/30/20 17:59 03/11/20 08:42 Bisacodyl (Dulcolax) 10 mg DAILYPRN PRN ORAL Constipation 02/28/20 18:00 05/28/20 17:44 Dextrose (Dextrose 50%) 25 ml Q30M PRN IV Hypoglycemia 02/28/20 17:45 05/28/20 17:44 Dextrose (Dextrose 50%) 50 ml Q30M PRN IV Hypoglycemia 02/28/20 17:45 05/28/20 17:44 Enoxaparin Sodium (Lovenox) 40 mg Q24H SUBQ 02/28/20 21:00 05/28/20 20:59 03/10/20 20:42 Famotidine (Pepcid) 40 mg DAILY ORAL 02/29/20 09:00 05/29/20 08:59 03/11/20 08:42 Folic Acid (Folate) 1 mg DAILY ORAL 03/08/20 09:00 04/07/20 08:59 03/11/20 08:42 Iron Sucrose 100 mg/Sodium Chloride 60 ml @ 240 mls/hr BEDTIME IV 03/08/20 21:00 03/12/20 21:14 03/10/20 20:41 Magnesium Hydroxide (Mom) 30 ml DAILYPRN PRN ORAL Constipation 02/28/20 17:45 03/29/20 17:44 Multivitamins (Multivitamins W/ Minerals 15ml Liquid) 15 ml DAILY GT 03/01/20 09:00 03/31/20 08:59 03/11/20 08:42 Olanzapine (ZyPREXA) 2.5 mg BEDTIME ORAL 03/08/20 21:00 04/22/20 20:59 03/10/20 20:41 Olanzapine (ZyPREXA) 2.5 mg EVERY 6 HOURS PRN ORAL agitation 03/04/20 00:00 04/18/20 00:00 Ondansetron HCl (Zofran) 4 mg Q6H PRN IVP Nausea & Vomiting 02/28/20 17:45 03/29/20 17:44 Sodium Hypochlorite (Dakin's Quarter Strength) 1 applic DAILY TOPIC 03/01/20 09:00 03/31/20 08:59 03/10/20 08:38 Sodium Phosphate (Fleet's Sodium Phosl Enema) 133 ml DAILYPRN PRN RECTAL Constipation 02/28/20 17:45 03/29/20 17:44 Zinc Sulfate (Zinc Sulfate) 220 mg DAILY ORAL 03/01/20 09:00 05/30/20 08:59 03/11/20 08:42 Ana Paula Mccord MD Mar 11, 2020 11:04
--- NOTE | 2020-03-11 11:24 | NUR ---
RD ASSESSMENT & RECOMMENDATIONS SEE CARE ACTIVITY FOR COMPLETE ASSESSMENT DAILY ESTIMATED NEEDS: Needs based on Wounds, underweight/ 70.5kg 25-35 kcals/kg 2044-3038 total kcals 1.25-2 g protein/kg 88-141 g total protein 25-30 mL/kg 7742-1369 total fluid mLs NUTRITION DIAGNOSIS: Increased kcal/prot/micronutrients needs R/T wound healing as evidenced by pt admitted w/ multiple advanced wounds, including stage 4 sacral, unstageable wounds @ lateral R 1st metatarsal, L Hallux, R heel, and L lateral malleous, w/ poor and variable PO intake (CURRENT DIET: REGULAR + Ensure BID) PO DIET RECOMMENDATIONS: REGULAR/ texture as tolerated or per SERVICE TECHNICIAN ENTERAL NUTRITION RECOMMENDATIONS: REC NON ORAL FEEDS IF PART OF POC TO MEET EST KCAL/PROTEIN NEEDS CONSULT RD FOR TF RECS ADDITIONAL RECOMMENDATIONS: 1) Calibrated bedscale wt for accurate CBW 2) Calorie Count x 48 hrs completed-> DATA NOT AVAILABLE -> continue to monitor PO intake closely, re-order if indicated 3) Ensure Enlive TID w/ poor and variable intake 4) Consider appetite stimulant to help improve PO intake 5) Consider SERVICE TECHNICIAN eval for appropriate texture 6) Wound healing: Continue MVI+ Vit C + ZnSO4 + David BID 7) ADD accuchecks for close monitoring of hypoglycemia (BGs 59 53, 67) 8) Add D5 IVF w/ poor PO to prevent hypoglycemia
--- NOTE | 2020-03-11 11:36 | NUR ---
*-*DISCHARGE PLANNING*-* PATIENT HAS BEEN REFERRED TO: [address] P: [phone] F: [phone] [facility] P: [phone] F: [phone] [facility] P: [phone] F: [phone] [facility] P: [phone] F: [phone] [facility] P: [phone] F: [phone] [facility] P: [phone] F: [phone] [facility] P: [phone] F: [phone] [facility] P: [phone] F: [phone] [facility] P: [phone] F: [phone] [facility] P: [phone] F: [phone] ~~~~~~~~~~~CLINICALS FAXED~~~~~~~~~~~~~~ Addendum: 03/12/20 at 1118 by LUCA SOSA CM [address] P: [phone] S/W KAROLINA, NOT ACCEPTING PATIENTS [facility] P: [phone] S/W TIEN, NOT ACCEPTING [facility] P: [phone] S/W MITUL, UNABLE TO ACCEPT PATIENTS AT THE MOMENT. [facility] P: [phone] S/W KIMANI, NOT ACCEPTING ANY PATIENTS [facility] P: [phone] ADMISSIONS UNAVAILABLE [facility] P: [phone] S/W JAYNE, NOT RECEIVED YET [facility] P: [phone] S/W AROLDO, CALL BACK LATER. [facility] P: [phone] S/W CONCHA, ADMISSIONS IN A MEETING. [facility] P: [phone] S/W JAZMYN, ADMISSIONS [facility] P: [phone] NO ANSWER
--- NOTE | 2020-03-11 11:44 | Pulmonology Progress Note ---
Assessment/Plan Assessment/Plan IMPRESSION: 1. Endocarditis, off antibiotics. 2. Acute anemia, status post PRBC. 3. Ruled out COVID-19 x1. Second swab also negative. 4. Agitation; seen by psych 5. UTI, MDR DISCUSSION: Continue current medications and care. The patient has a Odonnell catheter in place. The patient has been found to have urine positive for MDR. I will continue to follow carefully. Discharge planning back to detention facility today. Does not need ASHLEY to confirm resolution of endocarditis; discussed with cardiology Feliciano Angel M.D. Subjective ROS Limited/Unobtainable: Yes Interval Events: None new; second pcr also negative Constitutional: Reports: no symptoms HEENT: Repors: no symptoms Respiratory: Reports: no symptoms Cardiovascular: Reports: no symptoms Gastrointestinal/Abdominal: Reports: no symptoms Genitourinary: Reports: no symptoms Allergies: Coded Allergies: No Known Allergies (Unverified , 02/28/20) All Systems: reviewed and negative except above Objective Last 24 Hour Vital Signs Date Time Temp Pulse Resp B/P (MAP) Pulse Ox O2 Delivery O2 Flow Rate FiO2 03/11/20 08:41 92 130/55 03/11/20 08:00 97.0 92 18 130/55 (80) 92 03/11/20 04:00 97.3 70 20 120/69 (86) 92 03/11/20 00:00 98.4 75 20 128/79 (95) 92 03/10/20 22:19 Room Air 03/10/20 20:00 97.9 71 20 110/62 (78) 92 03/10/20 16:00 97.7 62 20 115/73 (87) 92 03/10/20 12:00 97.7 65 18 109/66 (80) 92 Intake and Output 03/10/20 03/11/20 19:00 07:00 Intake Total 1000 ml Output Total 600 ml 400 ml Balance 400 ml -400 ml Intake Oral 1000 ml Output Urine Total 600 ml 400 ml General Appearance: no acute distress HEENT: mucous membranes moist Respiratory/Chest: chest wall non-tender, lungs clear Cardiovascular: normal peripheral pulses Abdomen: soft, non tender Extremities: no edema Neurologic/Psychiatric: alert, responsive Musculoskeletal: atrophy Current Medications Medications (Trade) Dose Ordered Sig/Ramiro Route PRN Reason Start Time Stop Time Status Last Admin Dose Admin Acetaminophen (Tylenol) 650 mg Q4H PRN ORAL Mild Pain (Pain Scale 1-3) 02/28/20 17:45 03/29/20 17:44 02/29/20 06:24 Amlodipine Besylate (Norvasc) 2.5 mg DAILY ORAL 03/05/20 09:00 04/04/20 08:59 03/11/20 08:41 Ascorbic Acid (Vitamin C) 500 mg TWICE A DAY ORAL 02/29/20 18:00 03/30/20 17:59 03/11/20 08:42 Bisacodyl (Dulcolax) 10 mg DAILYPRN PRN ORAL Constipation 02/28/20 18:00 05/28/20 17:44 Dextrose (Dextrose 50%) 25 ml Q30M PRN IV Hypoglycemia 02/28/20 17:45 05/28/20 17:44 Dextrose (Dextrose 50%) 50 ml Q30M PRN IV Hypoglycemia 02/28/20 17:45 05/28/20 17:44 Enoxaparin Sodium (Lovenox) 40 mg Q24H SUBQ 02/28/20 21:00 05/28/20 20:59 03/10/20 20:42 Famotidine (Pepcid) 40 mg DAILY ORAL 02/29/20 09:00 05/29/20 08:59 03/11/20 08:42 Folic Acid (Folate) 1 mg DAILY ORAL 03/08/20 09:00 04/07/20 08:59 03/11/20 08:42 Iron Sucrose 100 mg/Sodium Chloride 60 ml @ 240 mls/hr BEDTIME IV 03/08/20 21:00 03/12/20 21:14 03/10/20 20:41 Magnesium Hydroxide (Mom) 30 ml DAILYPRN PRN ORAL Constipation 02/28/20 17:45 03/29/20 17:44 Multivitamins (Multivitamins W/ Minerals 15ml Liquid) 15 ml DAILY GT 03/01/20 09:00 03/31/20 08:59 03/11/20 08:42 Olanzapine (ZyPREXA) 2.5 mg BEDTIME ORAL 03/08/20 21:00 6/9/20 20:59 03/10/20 20:41 Olanzapine (ZyPREXA) 2.5 mg EVERY 6 HOURS PRN ORAL agitation 03/04/20 00:00 04/18/20 00:00 Ondansetron HCl (Zofran) 4 mg Q6H PRN IVP Nausea & Vomiting 02/28/20 17:45 03/29/20 17:44 Sodium Hypochlorite (Dakin's Quarter Strength) 1 applic DAILY TOPIC 03/01/20 09:00 03/31/20 08:59 03/10/20 08:38 Sodium Phosphate (Fleet's Sodium Phosl Enema) 133 ml DAILYPRN PRN RECTAL Constipation 02/28/20 17:45 03/29/20 17:44 Zinc Sulfate (Zinc Sulfate) 220 mg DAILY ORAL 03/01/20 09:00 05/30/20 08:59 03/11/20 08:42 Feliciano Angel MD Mar 11, 2020 11:44
[2020-03-11 12:00] VITALS: BP 137/76
--- NOTE | 2020-03-11 12:35 | NUR ---
CASE MANAGEMENT:REVIEW 03/08/20 SI;ENDOCARDITIS, ACUTE ANEMIA, MDR UTI 98.5 89 20 105/59 95% ON RA H/H 7.7/24.3 BG 29 BNP 2047 IS;LOVENOX SUBQ QD PEPCID PO QD ZINC PO QD FOLATE PO QD IRON SUCROSE IV HS NORVASC PO QS DAKINS TOP QD MED SURG STATUS DCP;PATIENT IS FROM [facility] CASE MANAGEMENT:REVIEW 03/09/20 SI;ENDOCARDITIS, ACUTE ANEMIA, MDR UTI 97.3 73 20 133/73 63% ON RA IS;LOVENOX SUBQ QD PEPCID PO QD ZINC PO QD FOLATE PO QD IRON SUCROSE IV HS NORVASC PO QS DAKINS TOP QD MED SURG STATUS DCP;PATIENT IS FROM [facility] CASE MANAGEMENT:REVIEW 03/10/20 SI;ENDOCARDITIS, ACUTE ANEMIA, MDR UTI 98.3 75 20 109/66 93% ON RA IS;LOVENOX SUBQ QD PEPCID PO QD ZINC PO QD FOLATE PO QD IRON SUCROSE IV HS NORVASC PO QS DAKINS TOP QD MED SURG STATUS DCP;PATIENT IS FROM [facility] UNABLE TO READMIT PATIENT AT THIS TIME D/T ADMISSION HOLD BY [facility] R/T COVID-19 CURRENTLY SEEKING SNF PLACEMENT CASE MANAGEMENT:REVIEW 03/11/20 SI;ENDOCARDITIS, ACUTE ANEMIA, MDR UTI 98.3 75 20 109/66 93% ON RA IS;LOVENOX SUBQ QD PEPCID PO QD ZINC PO QD FOLATE PO QD IRON SUCROSE IV HS NORVASC PO QS DAKINS TOP QD MED SURG STATUS DCP;PATIENT IS FROM [facility] UNABLE TO READMIT PATIENT AT THIS TIME D/T ADMISSION HOLD BY [facility] R/T COVID-19 CURRENTLY SEEKING SNF PLACEMENT
--- NOTE | 2020-03-11 13:02 | Surgery Progress Note ---
Surgery Progress Note Objective Last 24 Hour Vital Signs Date Time Temp Pulse Resp B/P (MAP) Pulse Ox O2 Delivery O2 Flow Rate FiO2 03/11/20 12:00 97.0 68 18 137/76 (96) 99 03/11/20 08:41 92 130/55 03/11/20 08:00 97.0 92 18 130/55 (80) 92 03/11/20 04:00 97.3 70 20 120/69 (86) 92 03/11/20 00:00 98.4 75 20 128/79 (95) 92 03/10/20 22:19 Room Air 03/10/20 20:00 97.9 71 20 110/62 (78) 92 03/10/20 16:00 97.7 62 20 115/73 (87) 92 I&O Intake and Output 03/10/20 03/11/20 19:00 07:00 Intake Total 1000 ml Output Total 600 ml 400 ml Balance 400 ml -400 ml Intake Oral 1000 ml Output Urine Total 600 ml 400 ml Dressing: dry Wound: clean Cardiovascular: RSR Respiratory: clear, decreased breath sounds Abdomen: soft, non-tender, present bowel sounds, non-distended Extremities: no tenderness, no cyanosis Plan Problems: (1) Right lower lobe pneumonia Assessment & Plan: Findings: There is a moderate size right pleural effusion. Opacity at the right lung base may be secondary to the pleural fluid, but infiltrate also likely. The heart is enlarged. There is a left chest pacemaker. The left lung and pleural space are clear. The right upper lobe is clear. Impression: Right basilar moderate pleural effusion and likely parenchymal consolidation Cardiomegaly Pacemaker cont abx micro noted d/c planning (2) Failure to thrive Assessment & Plan: DAILY ESTIMATED NEEDS: Needs based on Wounds/ 70.5kg 25-30 kcals/kg 4328-4310 total kcals 1.25-2 g protein/kg 88-141 g total protein 25-30 mL/kg 2840-7563 total fluid mLs NUTRITION DIAGNOSIS: Increased kcal/prot/micronutrients needs R/T wound healing as evidenced by pt admitted w/ multiple advanced wounds, pending evaluation. CURRENT DIET:REGULAR PO DIET RECOMMENDATIONS: REGULAR/ texture as tolerated ADDITIONAL RECOMMENDATIONS: * Calibrated bedscale wt for accurate CBW * Consider Calorie Count x 48 hrs- FTT dx * Add Ensure Enlive BID for now, monitor need to increase * Wound healing: add MVI w/ mineral 1 tab QD, Vit C 500mg BID add ZnSO4 220mg QD x 10 days add David 1pkt BID (3) UTI (urinary tract infection) (4) Decubitus skin ulcer Assessment & Plan: Pt presented on admission with multiple pressure injuries. 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 100% slough at base of wound with marginal erythema along borders.` Unstageable pressure injury lateral R 1st metatarsal and L Hallux. Base of wound is 100% necrotic. Borders and periwound are callused. Unstageable Pressure Injury R heel. Base of wound is 100% necrotic with callused borders.In close proximity but extending into medial aspect of heel is a DTPI. Base of wound is purple with maroon borders. Dry cracked skin periwound. DTPI Plantar L heel. Unstageable pressure L lateral malleolus. 100% yellow slough with surrounding dry black borders. No exudate noted. Proximally to L malleolus Elongated area that is maroon in color. will likely plan for debridement of sacral wound as could use given how large and ill it is Tx.Plan: Cleanse Sacral wound with Dakin's 0.125% ashleigh. Apply Dakin's moistened Gauze to wound. Cover with Optifoam drsg Daily and prn. Apply Betadine to R foot wounds. Cover with ABD Pads and wrap with Kerlix Every 3 days and prn. Apply Betadine to L foot Wounds. Cover with ABD Pads and Wrap with Kerlix every 3 days and prn. APM/BHAVESH Mattress overlay. Reposition at least every 2hours or as tolerated. Off-load heels with Pillow. Yao Mccarty Mar 11, 2020 13:02
[2020-03-11] MEDS: Dakin's 0.125% Soln (Quarter Strength) 16oz TOPIC SCH (13:06)
--- NOTE | 2020-03-11 13:50 | NUR ---
[employer] PERSON NOTE CALL RECEIVED FROM USMAN ENCINAS AT HCP [phone]. ADVISED THIS CM TO REFER PATIENT TO [facility] DUE TO DIFFICULTY WITH SNF PLACEMENT.
[2020-03-11 16:00] VITALS: BP 131/72
--- NOTE | 2020-03-11 16:33 | NUR ---
DISCHARGE PLANNING PATIENT HAS BEEN REFERRED TO [facility] F: [phone]
--- NOTE | 2020-03-11 16:34 | NUR ---
CASE MANAGEMENT:REVIEW SI;ENDOCARDITIS, ACUTE ANEMIA, MDR UTI. 98.4 92 20 137/55 92% ON RA IS;IRON SUCROSE IV HS FOLATE PO QD ZINC PO QD PEPCID PO QD LOVENOX SUBQ QD MED SURG STATUS DCP;PATIENT IS FROM [facility] UNABLE TO RE-ADMIT COVID NEGATIVE PATIENTS CURRENTLY ONLY ACCEPTING COVID POSITIVE PATIENTS ACTIVELY SEEKING ALTERNATE SNF PLACEMENT PATIENT HAS BEEN REFERRED TO [facility]
[2020-03-11 17:27] LABS: HEMATOCRIT 25.6 % (42.0-52.0); HEMOGLOBIN 7.6 G/DL (14.2-18.0); MEAN CORPUSCULAR VOLUME 71 FL (80-99); PLATELET COUNT 174 K/UL (150-450); RED CELL DISTRIBUTION WIDTH 19.8 % (11.6-14.8); WHITE BLOOD COUNT 8.3 K/UL (4.8-10.8)
[2020-03-11 17:41] LABS: ALANINE AMINOTRANSFERASE 13 U/L (12-78); ALBUMIN 1.9 G/DL (3.4-5.0); ALBUMIN/GLOBULIN RATIO 0.4 (1.0-2.7); ALKALINE PHOSPHATASE 59 U/L (46-116); ANION GAP 7 mmol/L (5-15); ASPARTATE AMINO TRANSFERASE 15 U/L (15-37); BILIRUBIN,TOTAL 0.2 MG/DL (0.2-1.0); BLOOD UREA NITROGEN 19 mg/dL (7-18); CALCIUM 9.3 MG/DL (8.5-10.1); CARBON DIOXIDE 27 MMOL/L (21-32); CHLORIDE 103 MMOL/L (98-107); CREATININE 1.3 MG/DL (0.55-1.30); POTASSIUM 4.5 MMOL/L (3.5-5.1); SODIUM 137 MMOL/L (136-145)
--- NOTE | 2020-03-11 19:25 | NUR ---
NURSE NOTES: Received pt from TERRI Adkins. AAO x 4, on room air. Able to make needs known. Condom cath intact. IV intact. No acute distress noted. Bed locked, alarm on, side rails up, call light within reach. Will continue to monitor.
--- NOTE | 2020-03-11 19:31 | NUR ---
HAND-OFF: Report given to SUZETTE MURRAY.
[2020-03-11 20:00] VITALS: BP 127/78
[2020-03-11] MEDS: Enoxaparin 40mg Inj SUBQ SCH (21:02)
[2020-03-11] MEDS: Iron Sucrose 100 MG in NS 55 ML IV SCH (21:03)
--- NOTE | 2020-03-11 21:06 | NUR ---
NURSE NOTES: Dropped zyprexa on the floor and contaminated. RN wasted the med and pulled out another zyprexa.
[2020-03-11] MEDS: OLANZapine 2.5mg tab ORAL SCH (21:10)
[2020-03-12] VITALS: BP 124/76
--- NOTE | 2020-03-12 00:13 | Psych Consult Progress Note ---
Psychiatry Progress Note Psychiatry Progress Note Medications Current Medications Medications (Trade) Dose Ordered Sig/Ramiro Route PRN Reason Start Time Stop Time Status Last Admin Dose Admin Acetaminophen (Tylenol) 650 mg Q4H PRN ORAL Mild Pain (Pain Scale 1-3) 02/28/20 17:45 03/29/20 17:44 02/29/20 06:24 Amlodipine Besylate (Norvasc) 2.5 mg DAILY ORAL 03/05/20 09:00 04/04/20 08:59 03/11/20 08:41 Ascorbic Acid (Vitamin C) 500 mg TWICE A DAY ORAL 02/29/20 18:00 03/30/20 17:59 03/11/20 17:16 Bisacodyl (Dulcolax) 10 mg DAILYPRN PRN ORAL Constipation 02/28/20 18:00 05/28/20 17:44 Dextrose (Dextrose 50%) 25 ml Q30M PRN IV Hypoglycemia 02/28/20 17:45 05/28/20 17:44 Dextrose (Dextrose 50%) 50 ml Q30M PRN IV Hypoglycemia 02/28/20 17:45 05/28/20 17:44 Enoxaparin Sodium (Lovenox) 40 mg Q24H SUBQ 02/28/20 21:00 05/28/20 20:59 03/11/20 21:02 Famotidine (Pepcid) 40 mg DAILY ORAL 02/29/20 09:00 05/29/20 08:59 03/11/20 08:42 Folic Acid (Folate) 1 mg DAILY ORAL 03/08/20 09:00 04/07/20 08:59 03/11/20 08:42 Iron Sucrose 100 mg/Sodium Chloride 60 ml @ 240 mls/hr BEDTIME IV 03/08/20 21:00 03/12/20 21:14 03/11/20 21:03 Magnesium Hydroxide (Mom) 30 ml DAILYPRN PRN ORAL Constipation 02/28/20 17:45 03/29/20 17:44 Multivitamins (Multivitamins W/ Minerals 15ml Liquid) 15 ml DAILY GT 03/01/20 09:00 03/31/20 08:59 03/11/20 08:42 Olanzapine (ZyPREXA) 2.5 mg BEDTIME ORAL 03/08/20 21:00 04/22/20 20:59 03/11/20 21:10 Olanzapine (ZyPREXA) 2.5 mg EVERY 6 HOURS PRN ORAL agitation 03/04/20 00:00 04/18/20 00:00 Ondansetron HCl (Zofran) 4 mg Q6H PRN IVP Nausea & Vomiting 02/28/20 17:45 03/29/20 17:44 Sodium Hypochlorite (Dakin's Quarter Strength) 1 applic DAILY TOPIC 03/01/20 09:00 03/31/20 08:59 03/11/20 13:06 Sodium Phosphate (Fleet's Sodium Phosl Enema) 133 ml DAILYPRN PRN RECTAL Constipation 02/28/20 17:45 03/29/20 17:44 Zinc Sulfate (Zinc Sulfate) 220 mg DAILY ORAL 03/01/20 09:00 05/30/20 08:59 03/11/20 08:42 Neurological/Psychiatric: Reports: anxiety, depressed Allergies: Coded Allergies: No Known Allergies (Unverified , 02/28/20) Objective Data Height (Feet): 5 Height (Inches): 8.00 Weight (Pounds): 151 General Appearance: no apparent distress, alert, confused Additional Comments: Alert and oriented to time and self. Mood is neutral. Affect is flat. Thought process is concrete. Thought content, no suicidal or homicidal ideations. cognition impaired Assessment/Plan [place] I: dementia Status: unchanged Assessment/Plan: oswaldo lopez/William Heard rn, MD Mar 12, 2020 00:13
[2020-03-12 04:00] VITALS: BP 142/84
--- NOTE | 2020-03-12 05:00 | Progress Note ---
DATE: 03/11/2020 CARDIOLOGY PROGRESS NOTE SUBJECTIVE: Antimicrobial therapy has been completed for both urinary tract infection and Staph aureus aortic valve endocarditis. The patient is afebrile. Followup cultures of the blood ____ are negative. OBJECTIVE: VITAL SIGNS: Oxygen 92% on room air, blood pressure 120/69, pulse 70, respirations 20, afebrile. LUNGS: Clear. CARDIAC: Regular. Normal S1 and S2. 1/4 diastolic decrescendo. EXTREMITIES: Trace edema. Stasis derm changes with wound. LABORATORY DATA: Hemoglobin 7.6. Potassium 4.5, BUN 19, and creatinine 1.3. Albumin 1.9. IMPRESSION: 1. Aortic valve endocarditis, recovered. No signs of ongoing bacteremia. 2. Anemia. 3. Wounds. 4. Urinary tract infection. 5. Toxic encephalopathy. 6. Dementia with agitation. 7. Chronic diastolic congestive heart failure. PLAN: 1. DVT prophylaxis. 2. Iron replacement. 3. Consider transfusion of packed red blood cells for further drop in hemoglobin. 4. Antibiotic prophylaxis in the future for any instrumentation or dental work. 5. Titrate anti-failure regimen based on clinical parameters including amlodipine in the setting of aortic valve insufficiency. Yovany Durant M.D. DR: LACEY JOB#: [id number] CC:
--- NOTE | 2020-03-12 06:58 | NUR ---
HAND-OFF: Report given to TERRI Melara.
[2020-03-12 08:00] VITALS: BP 148/87
--- NOTE | 2020-03-12 08:57 | Pulmonology Progress Note ---
Assessment/Plan Assessment/Plan IMPRESSION: 1. Endocarditis, off antibiotics. 2. Acute anemia, status post PRBC. 3. Ruled out COVID-19 x1. Second swab also negative. 4. Agitation; seen by psych 5. UTI, MDR DISCUSSION: Continue current medications and care. The patient has a Odonnell catheter in place. The patient has been found to have urine positive for MDR. I will continue to follow carefully. Discharge home today Does not need ASHLEY to confirm resolution of endocarditis; discussed with cardiology Feliciano Angel M.D. Subjective ROS Limited/Unobtainable: Yes Interval Events: None new; second pcr also negative Constitutional: Reports: no symptoms HEENT: Repors: no symptoms Respiratory: Reports: no symptoms Cardiovascular: Reports: no symptoms Gastrointestinal/Abdominal: Reports: no symptoms Genitourinary: Reports: no symptoms Allergies: Coded Allergies: No Known Allergies (Unverified , 02/28/20) All Systems: reviewed and negative except above Objective Last 24 Hour Vital Signs Date Time Temp Pulse Resp B/P (MAP) Pulse Ox O2 Delivery O2 Flow Rate FiO2 03/12/20 08:00 97.8 95 20 148/87 (107) 95 03/12/20 04:00 98.1 69 17 142/84 (103) 96 03/12/20 00:00 98.2 70 15 124/76 (92) 97 03/11/20 21:00 Room Air 03/11/20 20:00 98.1 75 15 127/78 (94) 97 03/11/20 16:00 97.2 72 18 131/72 (91) 92 03/11/20 12:00 97.0 68 18 137/76 (96) 99 03/11/20 09:00 Room Air Intake and Output 03/11/20 03/12/20 19:00 07:00 Intake Total 800 ml Output Total 1350 ml Balance -550 ml Intake Oral 800 ml Output Urine Total 1350 ml # Voids 4 # Bowel Movements 1 General Appearance: no acute distress HEENT: mucous membranes moist Respiratory/Chest: chest wall non-tender, lungs clear Cardiovascular: normal peripheral pulses Abdomen: soft, non tender Extremities: no edema Neurologic/Psychiatric: alert, responsive Musculoskeletal: atrophy Laboratory Tests 03/11/20 17:00: White Blood Count 8.3, Red Blood Count 3.60L, Hemoglobin 7.6L, Hematocrit 25.6L , Mean Corpuscular Volume 71L, Mean Corpuscular Hemoglobin 21.0L, Mean Corpuscular Hemoglobin Concent 29.6L, Red Cell Distribution Width 19.8H, Platelet Count 174, Mean Platelet Volume 5.3L, Neutrophils (%) (Auto) , Lymphocytes (%) (Auto) , Monocytes (%) (Auto) , Eosinophils (%) (Auto) , Basophils (%) (Auto) , Differential Total Cells Counted 100, Neutrophils % ( Manual) 86H, Lymphocytes % (Manual) 9L, Monocytes % (Manual) 3, Eosinophils % ( Manual) 0, Basophils % (Manual) 2, Band Neutrophils 0, Platelet Estimate Adequate, Platelet Morphology Normal, Polychromasia 1+, Hypochromasia 2+, Anisocytosis 2+, Microcytosis 1+, Sodium Level 137, Potassium Level 4.5, Chloride Level 103, Carbon Dioxide Level 27, Anion Gap 7, Blood Urea Nitrogen 19H, Creatinine 1.3, Estimat Glomerular Filtration Rate > 60, Glucose Level 87, Calcium Level 9.3, Total Bilirubin 0.2, Aspartate Amino Transf (AST/SGOT) 15, Alanine Aminotransferase (ALT/SGPT) 13, Alkaline Phosphatase 59, Total Protein 6.9, Albumin 1.9L, Globulin 5.0, Albumin/Globulin Ratio 0.4L Current Medications Medications (Trade) Dose Ordered Sig/Ramiro Route PRN Reason Start Time Stop Time Status Last Admin Dose Admin Acetaminophen (Tylenol) 650 mg Q4H PRN ORAL Mild Pain (Pain Scale 1-3) 02/28/20 17:45 03/29/20 17:44 02/29/20 06:24 Amlodipine Besylate (Norvasc) 5 mg DAILY ORAL 03/12/20 09:00 04/11/20 08:59 Ascorbic Acid (Vitamin C) 500 mg TWICE A DAY ORAL 02/29/20 18:00 03/30/20 17:59 03/11/20 17:16 Bisacodyl (Dulcolax) 10 mg DAILYPRN PRN ORAL Constipation 02/28/20 18:00 05/28/20 17:44 Dextrose (Dextrose 50%) 25 ml Q30M PRN IV Hypoglycemia 02/28/20 17:45 05/28/20 17:44 Dextrose (Dextrose 50%) 50 ml Q30M PRN IV Hypoglycemia 02/28/20 17:45 05/28/20 17:44 Enoxaparin Sodium (Lovenox) 40 mg Q24H SUBQ 02/28/20 21:00 05/28/20 20:59 03/11/20 21:02 Famotidine (Pepcid) 40 mg DAILY ORAL 02/29/20 09:00 05/29/20 08:59 03/11/20 08:42 Folic Acid (Folate) 1 mg DAILY ORAL 03/08/20 09:00 04/07/20 08:59 03/11/20 08:42 Iron Sucrose 100 mg/Sodium Chloride 60 ml @ 240 mls/hr BEDTIME IV 03/08/20 21:00 03/12/20 21:14 03/11/20 21:03 Magnesium Hydroxide (Mom) 30 ml DAILYPRN PRN ORAL Constipation 02/28/20 17:45 03/29/20 17:44 Multivitamins (Multivitamins W/ Minerals 15ml Liquid) 15 ml DAILY GT 03/01/20 09:00 03/31/20 08:59 03/11/20 08:42 Olanzapine (ZyPREXA) 2.5 mg BEDTIME ORAL 03/08/20 21:00 04/22/20 20:59 03/11/20 21:10 Olanzapine (ZyPREXA) 2.5 mg EVERY 6 HOURS PRN ORAL agitation 03/04/20 00:00 04/18/20 00:00 Ondansetron HCl (Zofran) 4 mg Q6H PRN IVP Nausea & Vomiting 02/28/20 17:45 03/29/20 17:44 Sodium Hypochlorite (Dakin's Quarter Strength) 1 applic DAILY TOPIC 03/01/20 09:00 03/31/20 08:59 03/11/20 13:06 Sodium Phosphate (Fleet's Sodium Phosl Enema) 133 ml DAILYPRN PRN RECTAL Constipation 02/28/20 17:45 03/29/20 17:44 Zinc Sulfate (Zinc Sulfate) 220 mg DAILY ORAL 03/01/20 09:00 05/30/20 08:59 03/11/20 08:42 Feliciano Angel MD Mar 12, 2020 08:57
[2020-03-12] MEDS ORDERED: ASCORBIC ACID500 M4 ORAL (08:59)
[2020-03-12] MEDS ORDERED: NORVASC5 MG ORAL (08:59)
[2020-03-12] MEDS ORDERED: FOLIC ACID1 MG ORAL (08:59)
[2020-03-12] MEDS ORDERED: ZINC SULFATE220 M2 ORAL (08:59)
[2020-03-12] MEDS ORDERED: MULTIVITAM9 MG/15 M1 GT (08:59)
[2020-03-12] MEDS ORDERED: OLANZAPINE2.5 MG ORAL (08:59)
[2020-03-12] MEDS: Multivitamins W/Minerals 15 ML UDC GT SCH (09:03)
[2020-03-12] MEDS: Ascorbic Acid 500mg tab ORAL SCH ×2 (09:05→17:26)
[2020-03-12] MEDS: Zinc Sulfate 220mg cap ORAL SCH (09:05)
[2020-03-12] MEDS: Dakin's 0.125% Soln (Quarter Strength) 16oz TOPIC SCH (09:06)
--- NOTE | 2020-03-12 09:30 | NUR ---
NURSE NOTES: Per Dr. Angel patient's daughter would like to take patient home for DC instead of SNF placement. S/w Marisa CM re DC Order for patient planned for DC home with home health today and informed her of patient's bedbound status and need for wound care at home. Per Marisa, she will contact patient's daughter re DCP. Marisa states that she may need to arrange for DME (hospital bed) at home and that she will arrange ambulance transportation for patient's DC transport needs. Will continue to f/u.
--- NOTE | 2020-03-12 09:43 | NUR ---
EVENTS INTERN NOTE CALL MADE TO PATIENTS NOK/SON ALFRED CHAPMAN AT WITH NO ANSWER AT TIME OF CALL. LEFT WITH REQUEST TO CALL THIS CM. WILL FOLLOW UP. Addendum: 03/12/20 at 1055 by SHAMIKA MARVIN LVN LVN CALL MADE TO PATIENTS JESSICA KING @ [phone]. NO ANSWER, UNABLE TO LEAVE JOHN, [facility] FULL. WILL ATTEMPT TO CALL AGAIN.
--- NOTE | 2020-03-12 10:12 | NUR ---
*-* DISCHARGE PLANNING *-* REFERRAL HAS BEEN FAXED TO HCP: [facility] P: [phone] [facility] F: [phone] *-* SPOKE WITH CRISTAL SHE STATED THEY HANDLE THE [facility], ORDER AND MED LIST FAXED.
--- NOTE | 2020-03-12 10:43 | Infectious Diseases Prog Note ---
Assessment/Plan Assessment/Plan antibiotics : none A 1. pseudomonas UTI s/p rx 2. hypertension 3. COVID 19 negative x 2, 4.16.20, 4.20.20 4. recent aortic valve endocarditis P 1. observe off antibiotics 2. will follow up cultures Subjective Constitutional: Denies: fever, chills Respiratory: Denies: shortness of breath, dry cough Gastrointestinal/Abdominal: Denies: nausea, vomiting, diarrhea Musculoskeletal: Denies: pain Allergies: Coded Allergies: No Known Allergies (Unverified , 02/28/20) Objective Vital Signs Last 24 Hour Vital Signs Date Time Temp Pulse Resp B/P (MAP) Pulse Ox O2 Delivery O2 Flow Rate FiO2 03/12/20 09:04 95 148/87 03/12/20 09:00 Room Air 03/12/20 08:00 97.8 95 20 148/87 (107) 95 03/12/20 04:00 98.1 69 17 142/84 (103) 96 03/12/20 00:00 98.2 70 15 124/76 (92) 97 03/11/20 21:00 Room Air 03/11/20 20:00 98.1 75 15 127/78 (94) 97 03/11/20 16:00 97.2 72 18 131/72 (91) 92 03/11/20 12:00 97.0 68 18 137/76 (96) 99 Height (Feet): 5 Height (Inches): 8.00 Weight (Pounds): 150 Respiratory/Chest: lungs clear Cardiovascular: normal rate, regular rhythm, no gallop/murmur Abdomen: soft, non tender Extremities: no edema Laboratory Tests Test 03/11/20 17:00 White Blood Count 8.3 K/UL (4.8-10.8) Red Blood Count 3.60 M/UL (4.70-6.10) L Hemoglobin 7.6 G/DL (14.2-18.0) L Hematocrit 25.6 % (42.0-52.0) L Mean Corpuscular Volume 71 FL (80-99) L Mean Corpuscular Hemoglobin 21.0 PG (27.0-31.0) L Mean Corpuscular Hemoglobin Concent 29.6 G/DL (32.0-36.0) L Red Cell Distribution Width 19.8 % (11.6-14.8) H Platelet Count 174 K/UL (150-450) Mean Platelet Volume 5.3 FL (6.5-10.1) L Neutrophils (%) (Auto) % (45.0-75.0) Lymphocytes (%) (Auto) % (20.0-45.0) Monocytes (%) (Auto) % (1.0-10.0) Eosinophils (%) (Auto) % (0.0-3.0) Basophils (%) (Auto) % (0.0-2.0) Differential Total Cells Counted 100 Neutrophils % (Manual) 86 % (45-75) H Lymphocytes % (Manual) 9 % (20-45) L Monocytes % (Manual) 3 % (1-10) Eosinophils % (Manual) 0 % (0-3) Basophils % (Manual) 2 % (0-2) Band Neutrophils 0 % (0-8) Platelet Estimate Adequate Platelet Morphology Normal Polychromasia 1+ Hypochromasia 2+ Anisocytosis 2+ Microcytosis 1+ Sodium Level 137 MMOL/L (136-145) Potassium Level 4.5 MMOL/L (3.5-5.1) Chloride Level 103 MMOL/L (98-107) Carbon Dioxide Level 27 MMOL/L (21-32) Anion Gap 7 mmol/L (5-15) Blood Urea Nitrogen 19 mg/dL (7-18) H Creatinine 1.3 MG/DL (0.55-1.30) Estimat Glomerular Filtration Rate > 60 mL/min (>60) Glucose Level 87 MG/DL (74-106) Calcium Level 9.3 MG/DL (8.5-10.1) Total Bilirubin 0.2 MG/DL (0.2-1.0) Aspartate Amino Transf (AST/SGOT) 15 U/L (15-37) Alanine Aminotransferase (ALT/SGPT) 13 U/L (12-78) Alkaline Phosphatase 59 U/L (46-116) Total Protein 6.9 G/DL (6.4-8.2) Albumin 1.9 G/DL (3.4-5.0) L Globulin 5.0 g/dL Albumin/Globulin Ratio 0.4 (1.0-2.7) L Current Medications Medications (Trade) Dose Ordered Sig/Ramiro Route PRN Reason Start Time Stop Time Status Last Admin Dose Admin Acetaminophen (Tylenol) 650 mg Q4H PRN ORAL Mild Pain (Pain Scale 1-3) 02/28/20 17:45 03/29/20 17:44 02/29/20 06:24 Amlodipine Besylate (Norvasc) 5 mg DAILY ORAL 03/12/20 09:00 04/11/20 08:59 03/12/20 09:04 Ascorbic Acid (Vitamin C) 500 mg TWICE A DAY ORAL 02/29/20 18:00 03/30/20 17:59 03/12/20 09:05 Bisacodyl (Dulcolax) 10 mg DAILYPRN PRN ORAL Constipation 02/28/20 18:00 05/28/20 17:44 Dextrose (Dextrose 50%) 25 ml Q30M PRN IV Hypoglycemia 02/28/20 17:45 05/28/20 17:44 Dextrose (Dextrose 50%) 50 ml Q30M PRN IV Hypoglycemia 02/28/20 17:45 05/28/20 17:44 Enoxaparin Sodium (Lovenox) 40 mg Q24H SUBQ 02/28/20 21:00 05/28/20 20:59 03/11/20 21:02 Famotidine (Pepcid) 40 mg DAILY ORAL 02/29/20 09:00 05/29/20 08:59 03/12/20 09:13 Folic Acid (Folate) 1 mg DAILY ORAL 03/08/20 09:00 04/07/20 08:59 03/12/20 09:04 Iron Sucrose 100 mg/Sodium Chloride 60 ml @ 240 mls/hr BEDTIME IV 03/08/20 21:00 03/12/20 21:14 03/11/20 21:03 Magnesium Hydroxide (Mom) 30 ml DAILYPRN PRN ORAL Constipation 02/28/20 17:45 03/29/20 17:44 03/12/20 09:53 Multivitamins (Multivitamins W/ Minerals 15ml Liquid) 15 ml DAILY GT 03/01/20 09:00 03/31/20 08:59 03/12/20 09:03 Olanzapine (ZyPREXA) 2.5 mg BEDTIME ORAL 03/08/20 21:00 04/22/20 20:59 03/11/20 21:10 Olanzapine (ZyPREXA) 2.5 mg EVERY 6 HOURS PRN ORAL agitation 03/04/20 00:00 04/18/20 00:00 Ondansetron HCl (Zofran) 4 mg Q6H PRN IVP Nausea & Vomiting 02/28/20 17:45 03/29/20 17:44 Sodium Hypochlorite (Dakin's Quarter Strength) 1 applic DAILY TOPIC 03/01/20 09:00 03/31/20 08:59 03/12/20 09:06 Sodium Phosphate (Fleet's Sodium Phosl Enema) 133 ml DAILYPRN PRN RECTAL Constipation 02/28/20 17:45 03/29/20 17:44 Zinc Sulfate (Zinc Sulfate) 220 mg DAILY ORAL 03/01/20 09:00 05/30/20 08:59 03/12/20 09:05 Ana Paula Mccord MD Mar 12, 2020 10:43
[2020-03-12 12:00] VITALS: BP 128/75
--- NOTE | 2020-03-12 12:21 | NUR ---
DISCHARGE PLANNING FOLLOW UP FOLLOW UP CALL MADE TO HCP @ P: [phone] OPT.1. S/W REGINALD WHO STATES FAXED NOT YET RECEIVED THEIR FAX HAS BEEN DOWN THIS MORNING. STATED THAT FAXED BEGAN TO FUNCTION ABOUT 1 HOUR AGO. WILL CONFIRM UPON RECEIPT OF FAXED IN RE TO HOME HEALTH REFERRAL.
--- NOTE | 2020-03-12 14:38 | NUR ---
[employer] INS[employer] SALES AGENT NOTE FOLLOW UP CALL MADE TO HCP USMAN ENCINAS @ [phone]. CONFIRMED RECEIPT OF HOME HEALTH ORDER. STATES PATIENT WILL BE REFERRED TO IN NETWORK CONTRACTED HOME HEALTH AGENCY. WAS UNABLE TO PROVIDE AGENCY INFO AT THIS TIME UNTIL CONFIRMED. CALL MADE TO PATIENT DAUGHTER FERNANDO. INFORMED OF PATIENTS DISCHARGE TO HOME WITH HOME HEALTH. STATES SHE IS UNABLE TO ACCEPT PATIENT HOME TODAY SHE IS NOT AVAILABLE TO RECEIVE HIM. AGREES FOR PATIENT TO DC HOME TOMORROW WED 03/13/20. WILL FOLLOW UP WITH DAUGHTER IN AM TO CONFIRM TIME SHE WILL ACCEPT PATIENT. TERRI ARREAGA INFORMED OF DC PLAN.
--- NOTE | 2020-03-12 14:47 | NUR ---
NURSE NOTES: RN SPOKE TO SHAMIKA (MUSTAPHA) AND PER MUSTAPHA, PLAN FOR DISCHARGE HOME TO DAUGHTER TOMORROW. NO HOME HEALTH AGENCY ASSIGNED YET.
--- NOTE | 2020-03-12 15:40 | NUR ---
*-* INSURANCE *-* UPDATED CLINICALS AND REVIEWS HAVE BEEN FAXD TO: [facility] NCM:[place] P: [phone] F: [phone] (FAX CLINICALS HERE AND TO [facility] [phone]) & [facility] NCM:[place] P: [phone] F: [phone] [place] Orders: [id number]
--- NOTE | 2020-03-12 15:41 | NUR ---
*-* INSURANCE *-* UPDATED CLINICALS AND REVIEWS HAVE BEEN FAXD TO: [facility] NCM:[place] P: [phone] F: [phone] (FAX CLINICALS HERE AND TO [facility] [phone]) & [facility] NCM:[place] P: [phone] F: [phone] [place] Orders: [phone]
--- NOTE | 2020-03-12 15:47 | Surgery Progress Note ---
Surgery Progress Note Subjective Symptoms: improved, tolerating diet, voiding well, passing flatus, BM Objective Last 24 Hour Vital Signs Date Time Temp Pulse Resp B/P (MAP) Pulse Ox O2 Delivery O2 Flow Rate FiO2 03/12/20 12:00 97.0 62 19 128/75 (92) 98 03/12/20 09:04 95 148/87 03/12/20 09:00 Room Air 03/12/20 08:00 97.8 95 20 148/87 (107) 95 03/12/20 04:00 98.1 69 17 142/84 (103) 96 03/12/20 00:00 98.2 70 15 124/76 (92) 97 03/11/20 21:00 Room Air 03/11/20 20:00 98.1 75 15 127/78 (94) 97 03/11/20 16:00 97.2 72 18 131/72 (91) 92 I&O Intake and Output 03/11/20 03/12/20 19:00 07:00 Intake Total 800 ml Output Total 1350 ml Balance -550 ml Intake Oral 800 ml Output Urine Total 1350 ml # Voids 4 # Bowel Movements 1 Dressing: dry Wound: clean Cardiovascular: RSR Respiratory: clear Abdomen: soft, non-tender, present bowel sounds Extremities: no edema, no tenderness, no cyanosis Laboratory Tests Test 03/11/20 17:00 White Blood Count 8.3 K/UL (4.8-10.8) Red Blood Count 3.60 M/UL (4.70-6.10) L Hemoglobin 7.6 G/DL (14.2-18.0) L Hematocrit 25.6 % (42.0-52.0) L Mean Corpuscular Volume 71 FL (80-99) L Mean Corpuscular Hemoglobin 21.0 PG (27.0-31.0) L Mean Corpuscular Hemoglobin Concent 29.6 G/DL (32.0-36.0) L Red Cell Distribution Width 19.8 % (11.6-14.8) H Platelet Count 174 K/UL (150-450) Mean Platelet Volume 5.3 FL (6.5-10.1) L Neutrophils (%) (Auto) % (45.0-75.0) Lymphocytes (%) (Auto) % (20.0-45.0) Monocytes (%) (Auto) % (1.0-10.0) Eosinophils (%) (Auto) % (0.0-3.0) Basophils (%) (Auto) % (0.0-2.0) Differential Total Cells Counted 100 Neutrophils % (Manual) 86 % (45-75) H Lymphocytes % (Manual) 9 % (20-45) L Monocytes % (Manual) 3 % (1-10) Eosinophils % (Manual) 0 % (0-3) Basophils % (Manual) 2 % (0-2) Band Neutrophils 0 % (0-8) Platelet Estimate Adequate Platelet Morphology Normal Polychromasia 1+ Hypochromasia 2+ Anisocytosis 2+ Microcytosis 1+ Sodium Level 137 MMOL/L (136-145) Potassium Level 4.5 MMOL/L (3.5-5.1) Chloride Level 103 MMOL/L (98-107) Carbon Dioxide Level 27 MMOL/L (21-32) Anion Gap 7 mmol/L (5-15) Blood Urea Nitrogen 19 mg/dL (7-18) H Creatinine 1.3 MG/DL (0.55-1.30) Estimat Glomerular Filtration Rate > 60 mL/min (>60) Glucose Level 87 MG/DL (74-106) Calcium Level 9.3 MG/DL (8.5-10.1) Total Bilirubin 0.2 MG/DL (0.2-1.0) Aspartate Amino Transf (AST/SGOT) 15 U/L (15-37) Alanine Aminotransferase (ALT/SGPT) 13 U/L (12-78) Alkaline Phosphatase 59 U/L (46-116) Total Protein 6.9 G/DL (6.4-8.2) Albumin 1.9 G/DL (3.4-5.0) L Globulin 5.0 g/dL Albumin/Globulin Ratio 0.4 (1.0-2.7) L Plan Problems: (1) Right lower lobe pneumonia Assessment & Plan: Findings: There is a moderate size right pleural effusion. Opacity at the right lung base may be secondary to the pleural fluid, but infiltrate also likely. The heart is enlarged. There is a left chest pacemaker. The left lung and pleural space are clear. The right upper lobe is clear. Impression: Right basilar moderate pleural effusion and likely parenchymal consolidation Cardiomegaly Pacemaker cont abx micro noted d/c planning (2) Failure to thrive Assessment & Plan: DAILY ESTIMATED NEEDS: Needs based on Wounds/ 70.5kg 25-30 kcals/kg 8365-3388 total kcals 1.25-2 g protein/kg 88-141 g total protein 25-30 mL/kg 3588-2694 total fluid mLs NUTRITION DIAGNOSIS: Increased kcal/prot/micronutrients needs R/T wound healing as evidenced by pt admitted w/ multiple advanced wounds, pending evaluation. CURRENT DIET:REGULAR PO DIET RECOMMENDATIONS: REGULAR/ texture as tolerated ADDITIONAL RECOMMENDATIONS: * Calibrated bedscale wt for accurate CBW * Consider Calorie Count x 48 hrs- FTT dx * Add Ensure Enlive BID for now, monitor need to increase * Wound healing: add MVI w/ mineral 1 tab QD, Vit C 500mg BID add ZnSO4 220mg QD x 10 days add David 1pkt BID (3) UTI (urinary tract infection) (4) Decubitus skin ulcer Assessment & Plan: Pt presented on admission with multiple pressure injuries. 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 100% slough at base of wound with marginal erythema along borders.` Unstageable pressure injury lateral R 1st metatarsal and L Hallux. Base of wound is 100% necrotic. Borders and periwound are callused. Unstageable Pressure Injury R heel. Base of wound is 100% necrotic with callused borders.In close proximity but extending into medial aspect of heel is a DTPI. Base of wound is purple with maroon borders. Dry cracked skin periwound. DTPI Plantar L heel. Unstageable pressure L lateral malleolus. 100% yellow slough with surrounding dry black borders. No exudate noted. Proximally to L malleolus Elongated area that is maroon in color. will likely plan for debridement of sacral wound as could use given how large and ill it is Tx.Plan: Cleanse Sacral wound with Dakin's 0.125% ashleigh. Apply Dakin's moistened Gauze to wound. Cover with Optifoam drsg Daily and prn. Apply Betadine to R foot wounds. Cover with ABD Pads and wrap with Kerlix Every 3 days and prn. Apply Betadine to L foot Wounds. Cover with ABD Pads and Wrap with Kerlix every 3 days and prn. APM/BHAVESH Mattress overlay. Reposition at least every 2hours or as tolerated. Off-load heels with Pillow. Yao Mccarty Mar 12, 2020 15:47
[2020-03-12 16:00] VITALS: BP 136/76
--- NOTE | 2020-03-12 16:28 | NUR ---
Wound care performed as ordered to stage 4 sacral wound and bilateral heel pressure injuries. Condom catheter has fallen off prior to procedure and was replaced. Pt repositioned and verbalized comfort. Will continue to monitor.
--- NOTE | 2020-03-12 19:16 | NUR ---
HAND-OFF: Report given to Valentina MURRAY.
[2020-03-12 20:00] VITALS: BP 129/80
[2020-03-12] MEDS: Enoxaparin 40mg Inj SUBQ SCH (20:44)
[2020-03-12] MEDS: OLANZapine 2.5mg tab ORAL SCH (20:44)
[2020-03-12] MEDS: Iron Sucrose 100 MG in NS 55 ML IV SCH (20:45)
--- NOTE | 2020-03-13 02:45 | Progress Note ---
DATE: 03/12/2020 SUBJECTIVE: The patient is in bed, in no acute distress noted, calm, no behavior issues. MENTAL STATUS EXAMINATION: Mood is neutral. Affect is flat. Thought process is concrete. Thought content, no suicidal or homicidal ideation. Cognition is intact. Insight and judgment is impaired. ASSESSMENT: Stable. PLAN: Continue current medications. William Lopez M.D. DR: Bridget JOB#: [id number] CC:
--- NOTE | 2020-03-13 03:44 | Progress Note ---
DATE: 03/12/2020 CARDIOLOGY PROGRESS NOTE SUBJECTIVE: Condition unchanged. Blood pressure parameters adequate. No shortness of breath and adequate saturations noted on room air. PHYSICAL EXAMINATION: VITAL SIGNS: Blood pressure 142/84, heart rate 69, respiratory rate 17, afebrile, room air oxygen saturation 95%. LUNGS: Clear. CARDIAC: Regular rhythm and rate. Normal S1, S2 with a fourth heart sound and a 1/4 diastolic decrescendo. ABDOMEN: Soft. EXTREMITIES: There is no edema. IMPRESSION: 1. Status post aortic valve endocarditis. 2. Aortic insufficiency. 3. Hypertensive heart disease. 4. Recovered urinary tract infection with sepsis. 5. No recurring bacteremia. PLAN: No additional antimicrobials. Antibiotic prophylaxis in future instrumentation or dental work. Await disposition. Optimize antihypertensive regimen with titration of amlodipine ongoing. Yovany Durant M.D. DR: YARELIS JOB#: [id number] CC:
[2020-03-13 04:00] VITALS: BP 134/81
--- NOTE | 2020-03-13 07:35 | NUR ---
HAND-OFF: Report given to Devon Solorio RN.
--- NOTE | 2020-03-13 07:50 | NUR ---
NURSE NOTES: made am rounds, pt is in the bed asleep. respiration is even and unlabored on room air. no facial grimacing for pain and discomfort noted. call light is within reach, will follow plan of care.
[2020-03-13 08:00] VITALS: BP 130/74
[2020-03-13] MEDS: Dakin's 0.125% Soln (Quarter Strength) 16oz TOPIC SCH (09:00)
--- NOTE | 2020-03-13 10:25 | NUR ---
DISCHARGE PLANNING FOLLOW UP WITH PATIENTS DAUGHTER FERNANDO @ [phone]. CONFIRMED SHE WILL BE HOME IN THE AFTERNOON AND ABLE TO RECEIVE PATIENT AT 1400 PM. CALL MADE TO [facility], HCP NCM @ [phone] AND INFORMED PATIENT WILL DISCHARGE HOME TODAY AND REQUIRE BLS AMBULANCE TRANSPORTATION. DID NOT PROVIDE AUTH # FOR BLS TRANSPORT AT THIS TIME. WILL OBTAIN AND CALL BACK WITH INFO. DID NOT HAVE HOME HEALTH AGENCY INFO AT TIME OF CALL. WILL FOLLOW UP WITH [facility]. BLS AMBULANCE TRANSPORTATION SCHEDULED WITH [facility] EXT [phone] WITH ETA @ 1330 PM PER SURY. PATIENTS HOME ADDRESS AND PHONE # PROVIDED: [address] [place] [address] - FERNANDO, DAUGHTER
--- NOTE | 2020-03-13 10:33 | NUR ---
*-* INSURANCE *-* UPDATED CLINICALS AND REVIEWS HAVE BEEN FAXD TO: [facility] NCM:[place] P: [phone] F: [phone] (FAX CLINICALS HERE AND TO [facility] [phone]) & [facility] NCM:[place] P: [phone] F: [phone] [place] Orders: [phone]
[2020-03-13] MEDS: Ascorbic Acid 500mg tab ORAL SCH (11:32)
[2020-03-13] MEDS: Zinc Sulfate 220mg cap ORAL SCH (11:32)
[2020-03-13] MEDS: Multivitamins W/Minerals 15 ML UDC GT SCH (11:33)
[2020-03-13 12:00] VITALS: BP 128/72
--- NOTE | 2020-03-13 12:20 | Pulmonology Progress Note ---
Assessment/Plan Assessment/Plan IMPRESSION: 1. Endocarditis, off antibiotics. 2. Acute anemia, status post PRBC. 3. Ruled out COVID-19 x1. Second swab also negative. 4. Agitation; seen by psych 5. UTI, MDR DISCUSSION: Continue current medications and care. The patient has a Odonnell catheter in place. The patient has been found to have urine positive for MDR. I will continue to follow carefully. Discharge home today Does not need ASHLEY to confirm resolution of endocarditis; discussed with cardiology Feliciano Angel M.D. Subjective ROS Limited/Unobtainable: Yes Interval Events: None new; second pcr also negative Constitutional: Denies: fever, chills HEENT: Repors: no symptoms Respiratory: Reports: no symptoms Cardiovascular: Reports: no symptoms Gastrointestinal/Abdominal: Denies: nausea, vomiting, diarrhea Genitourinary: Reports: no symptoms Musculoskeletal: Denies: pain Allergies: Coded Allergies: No Known Allergies (Unverified , 02/28/20) All Systems: reviewed and negative except above Objective Last 24 Hour Vital Signs Date Time Temp Pulse Resp B/P (MAP) Pulse Ox O2 Delivery O2 Flow Rate FiO2 03/13/20 11:32 65 134/81 03/13/20 09:00 Room Air 03/13/20 04:00 97.8 65 20 134/81 (98) 94 03/12/20 21:22 Room Air 03/12/20 20:00 97.2 73 20 129/80 (96) 97 03/12/20 16:00 96.1 63 19 136/76 (96) 97 Intake and Output 03/12/20 03/13/20 19:00 07:00 Intake Total 60 ml Output Total 700 ml Balance -640 ml IV Total 60 ml Output Urine Total 700 ml General Appearance: no acute distress HEENT: mucous membranes moist Respiratory/Chest: chest wall non-tender, lungs clear Cardiovascular: normal peripheral pulses Abdomen: soft, non tender Extremities: no edema Neurologic/Psychiatric: alert, responsive Musculoskeletal: atrophy Current Medications Medications (Trade) Dose Ordered Sig/Ramiro Route PRN Reason Start Time Stop Time Status Last Admin Dose Admin Acetaminophen (Tylenol) 650 mg Q4H PRN ORAL Mild Pain (Pain Scale 1-3) 02/28/20 17:45 03/29/20 17:44 02/29/20 06:24 Amlodipine Besylate (Norvasc) 5 mg DAILY ORAL 03/12/20 09:00 04/11/20 08:59 03/13/20 11:32 Ascorbic Acid (Vitamin C) 500 mg TWICE A DAY ORAL 02/29/20 18:00 03/30/20 17:59 03/13/20 11:32 Bisacodyl (Dulcolax) 10 mg DAILYPRN PRN ORAL Constipation 02/28/20 18:00 05/28/20 17:44 03/12/20 17:26 Dextrose (Dextrose 50%) 25 ml Q30M PRN IV Hypoglycemia 02/28/20 17:45 05/28/20 17:44 Dextrose (Dextrose 50%) 50 ml Q30M PRN IV Hypoglycemia 02/28/20 17:45 05/28/20 17:44 Enoxaparin Sodium (Lovenox) 40 mg Q24H SUBQ 02/28/20 21:00 05/28/20 20:59 03/12/20 20:44 Famotidine (Pepcid) 40 mg DAILY ORAL 02/29/20 09:00 05/29/20 08:59 03/13/20 11:30 Folic Acid (Folate) 1 mg DAILY ORAL 03/08/20 09:00 04/07/20 08:59 03/13/20 11:32 Magnesium Hydroxide (Mom) 30 ml DAILYPRN PRN ORAL Constipation 02/28/20 17:45 03/29/20 17:44 03/12/20 09:53 Multivitamins (Multivitamins W/ Minerals 15ml Liquid) 15 ml DAILY GT 03/01/20 09:00 03/31/20 08:59 03/13/20 11:33 Olanzapine (ZyPREXA) 2.5 mg BEDTIME ORAL 03/08/20 21:00 04/22/20 20:59 03/12/20 20:44 Olanzapine (ZyPREXA) 2.5 mg EVERY 6 HOURS PRN ORAL agitation 03/04/20 00:00 04/18/20 00:00 Ondansetron HCl (Zofran) 4 mg Q6H PRN IVP Nausea & Vomiting 02/28/20 17:45 03/29/20 17:44 Sodium Hypochlorite (Dakin's Quarter Strength) 1 applic DAILY TOPIC 03/01/20 09:00 03/31/20 08:59 03/13/20 09:00 Sodium Phosphate (Fleet's Sodium Phosl Enema) 133 ml DAILYPRN PRN RECTAL Constipation 02/28/20 17:45 03/29/20 17:44 Zinc Sulfate (Zinc Sulfate) 220 mg DAILY ORAL 03/01/20 09:00 05/30/20 08:59 03/13/20 11:32 Feliciano Angel MD Mar 13, 2020 12:20
--- NOTE | 2020-03-13 13:58 | Infectious Diseases Prog Note ---
Assessment/Plan Assessment/Plan A 1. pseudomonas UTI treated 2. hypertension 3. COVID19 X 2 negative 4. recent aortic valve endocarditis P 1. observe off antibiotics Subjective ROS Limited/Unobtainable: No Constitutional: Reports: no symptoms Respiratory: Reports: no symptoms Gastrointestinal/Abdominal: Reports: no symptoms Genitourinary: Reports: no symptoms Allergies: Coded Allergies: No Known Allergies (Unverified , 02/28/20) Objective Vital Signs Last 24 Hour Vital Signs Date Time Temp Pulse Resp B/P (MAP) Pulse Ox O2 Delivery O2 Flow Rate FiO2 03/13/20 12:00 97.2 66 18 128/72 (90) 100 03/13/20 11:32 65 134/81 03/13/20 09:00 Room Air 03/13/20 08:00 97.4 70 19 130/74 (92) 95 03/13/20 04:00 97.8 65 20 134/81 (98) 94 03/12/20 21:22 Room Air 03/12/20 20:00 97.2 73 20 129/80 (96) 97 03/12/20 16:00 96.1 63 19 136/76 (96) 97 Height (Feet): 5 Height (Inches): 8.00 Weight (Pounds): 150 General Appearance: no acute distress HEENT: mucous membranes moist Respiratory/Chest: lungs clear Cardiovascular: normal rate Abdomen: soft, non tender Extremities: no edema Neurologic/Psychiatric: alert, responsive Current Medications Medications (Trade) Dose Ordered Sig/Ramiro Route PRN Reason Start Time Stop Time Status Last Admin Dose Admin Acetaminophen (Tylenol) 650 mg Q4H PRN ORAL Mild Pain (Pain Scale 1-3) 02/28/20 17:45 03/29/20 17:44 02/29/20 06:24 Amlodipine Besylate (Norvasc) 5 mg DAILY ORAL 03/12/20 09:00 04/11/20 08:59 03/13/20 11:32 Ascorbic Acid (Vitamin C) 500 mg TWICE A DAY ORAL 02/29/20 18:00 03/30/20 17:59 03/13/20 11:32 Bisacodyl (Dulcolax) 10 mg DAILYPRN PRN ORAL Constipation 02/28/20 18:00 05/28/20 17:44 03/12/20 17:26 Dextrose (Dextrose 50%) 25 ml Q30M PRN IV Hypoglycemia 02/28/20 17:45 05/28/20 17:44 Dextrose (Dextrose 50%) 50 ml Q30M PRN IV Hypoglycemia 02/28/20 17:45 05/28/20 17:44 Enoxaparin Sodium (Lovenox) 40 mg Q24H SUBQ 02/28/20 21:00 05/28/20 20:59 03/12/20 20:44 Famotidine (Pepcid) 40 mg DAILY ORAL 02/29/20 09:00 05/29/20 08:59 03/13/20 11:30 Folic Acid (Folate) 1 mg DAILY ORAL 03/08/20 09:00 04/07/20 08:59 03/13/20 11:32 Magnesium Hydroxide (Mom) 30 ml DAILYPRN PRN ORAL Constipation 02/28/20 17:45 03/29/20 17:44 03/12/20 09:53 Multivitamins (Multivitamins W/ Minerals 15ml Liquid) 15 ml DAILY GT 03/01/20 09:00 03/31/20 08:59 03/13/20 11:33 Olanzapine (ZyPREXA) 2.5 mg BEDTIME ORAL 03/08/20 21:00 04/22/20 20:59 03/12/20 20:44 Olanzapine (ZyPREXA) 2.5 mg EVERY 6 HOURS PRN ORAL agitation 03/04/20 00:00 04/18/20 00:00 Ondansetron HCl (Zofran) 4 mg Q6H PRN IVP Nausea & Vomiting 02/28/20 17:45 03/29/20 17:44 Sodium Hypochlorite (Dakin's Quarter Strength) 1 applic DAILY TOPIC 03/01/20 09:00 03/31/20 08:59 03/13/20 09:00 Sodium Phosphate (Fleet's Sodium Phosl Enema) 133 ml DAILYPRN PRN RECTAL Constipation 02/28/20 17:45 03/29/20 17:44 Zinc Sulfate (Zinc Sulfate) 220 mg DAILY ORAL 03/01/20 09:00 05/30/20 08:59 03/13/20 11:32 Gage Oquendo MD Mar 13, 2020 13:58
--- NOTE | 2020-03-13 14:36 | NUR ---
P.T Weekly Progress Notes: Pt was being seen this past week for skilled P.T. Pt responded poorly during the course of therapy. Pt is limited by medical issue, poor carry over of mobility tasks and poor activity tolerance. Pt remained MOD-MAX A to turn/roll using bed rail and MAX/total assist for supine to/from sitting. Pt is dependent for transfer mobility. Pt was able to sit with MOD support at the EOB however unable stand. Progress has plateaued and pt no longer benefiting from skilled P.T services at this time. Recommend DC to long term care phlebotomist SNF for total care. DC P.T services
--- NOTE | 2020-03-13 15:20 | NUR ---
NURSE NOTES: pt discharged home via [facility]. pt is alert and awake. no SOB noted. kept clean and dry. dressing is inplace. IV removed. no bleeding noted. applied pressure dressing, pt. denies any pain and discomfort. inventory paper and belongings paper singed by patient. no acute distress noted during discharge.
[2020-03-13] MEDS ORDERED: Tubing IV Secondary IV ONE (15:24)
[2020-03-13] MEDS ORDERED: NS 275ml ONE (15:24)
--- NOTE | 2020-03-13 17:16 | Surgery Progress Note ---
Surgery Progress Note Subjective Symptoms: improved, pain absent, tolerating diet, passing flatus Objective Last 24 Hour Vital Signs Date Time Temp Pulse Resp B/P (MAP) Pulse Ox O2 Delivery O2 Flow Rate FiO2 03/13/20 12:00 97.2 66 18 128/72 (90) 100 03/13/20 11:32 65 134/81 03/13/20 09:00 Room Air 03/13/20 08:00 97.4 70 19 130/74 (92) 95 03/13/20 04:00 97.8 65 20 134/81 (98) 94 03/12/20 21:22 Room Air 03/12/20 20:00 97.2 73 20 129/80 (96) 97 I&O Intake and Output 03/12/20 03/13/20 19:00 07:00 Intake Total 60 ml Output Total 700 ml Balance -640 ml IV Total 60 ml Output Urine Total 700 ml Dressing: dry Wound: clean Cardiovascular: RSR Respiratory: clear Abdomen: flat, non-tender, present bowel sounds Extremities: no cyanosis Plan Problems: (1) Right lower lobe pneumonia Assessment & Plan: Findings: There is a moderate size right pleural effusion. Opacity at the right lung base may be secondary to the pleural fluid, but infiltrate also likely. The heart is enlarged. There is a left chest pacemaker. The left lung and pleural space are clear. The right upper lobe is clear. Impression: Right basilar moderate pleural effusion and likely parenchymal consolidation Cardiomegaly Pacemaker cont abx micro noted d/c planning (2) Failure to thrive Assessment & Plan: DAILY ESTIMATED NEEDS: Needs based on Wounds/ 70.5kg 25-30 kcals/kg 3037-8283 total kcals 1.25-2 g protein/kg 88-141 g total protein 25-30 mL/kg 3980-9507 total fluid mLs NUTRITION DIAGNOSIS: Increased kcal/prot/micronutrients needs R/T wound healing as evidenced by pt admitted w/ multiple advanced wounds, pending evaluation. CURRENT DIET:REGULAR PO DIET RECOMMENDATIONS: REGULAR/ texture as tolerated ADDITIONAL RECOMMENDATIONS: * Calibrated bedscale wt for accurate CBW * Consider Calorie Count x 48 hrs- FTT dx * Add Ensure Enlive BID for now, monitor need to increase * Wound healing: add MVI w/ mineral 1 tab QD, Vit C 500mg BID add ZnSO4 220mg QD x 10 days add David 1pkt BID (3) UTI (urinary tract infection) (4) Decubitus skin ulcer Assessment & Plan: Pt presented on admission with multiple pressure injuries. 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 100% slough at base of wound with marginal erythema along borders.` Unstageable pressure injury lateral R 1st metatarsal and L Hallux. Base of wound is 100% necrotic. Borders and periwound are callused. Unstageable Pressure Injury R heel. Base of wound is 100% necrotic with callused borders.In close proximity but extending into medial aspect of heel is a DTPI. Base of wound is purple with maroon borders. Dry cracked skin periwound. DTPI Plantar L heel. Unstageable pressure L lateral malleolus. 100% yellow slough with surrounding dry black borders. No exudate noted. Proximally to L malleolus Elongated area that is maroon in color. will likely plan for debridement of sacral wound as could use given how large and ill it is Tx.Plan: Cleanse Sacral wound with Dakin's 0.125% ashleigh. Apply Dakin's moistened Gauze to wound. Cover with Optifoam drsg Daily and prn. Apply Betadine to R foot wounds. Cover with ABD Pads and wrap with Kerlix Every 3 days and prn. Apply Betadine to L foot Wounds. Cover with ABD Pads and Wrap with Kerlix every 3 days and prn. APM/BHAVESH Mattress overlay. Reposition at least every 2hours or as tolerated. Off-load heels with Pillow. Additional Comments Patient improving states he feels very well. Is excited to be leaving back facility. No nausea fever chills. [place] planning for today. Time note does not reflect when patient was seen as patient was seen earlier today. Okay to DC from surgical standpoint with above care plan outpatient Yao Mccarty Mar 13, 2020 17:16
--- NOTE | 2020-03-14 01:30 | Progress Note ---
DATE: 03/13/2020 SUBJECTIVE: The patient is calm, manageable. No behavior issues. Awaiting placement. MENTAL STATUS EXAMINATION: The patient is alert and oriented to times and self. Mood is neutral. Affect is flat. Thought process is concrete. Thought content, no suicidal or homicidal ideation. ASSESSMENT: Stable. PLAN: Continue current medications. William Lopez M.D. DR: Bridget JOB#: [id number] CC:
--- NOTE | 2020-03-14 05:30 | Progress Note ---
DATE: 03/13/2020 CARDIOLOGY PROGRESS NOTE SUBJECTIVE: The patient remains COVID negative. No shortness of breath. Continued lower extremity wound care. OBJECTIVE: VITAL SIGNS: Blood pressure 128/72, pulse 66, respiratory rate 18, and afebrile. LUNGS: Clear. CARDIAC: Regular rhythm and rate. Normal S1 and S2. 1/4 diastolic decrescendo. ABDOMEN: Soft. EXTREMITIES: Trace edema. IMPRESSION: 1. 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 2. Residual aortic insufficiency compensated. 3. Negative surveillance blood cultures. 4. Hypertensive heart disease with controlled blood pressure. 5. Peripheral artery disease with lower extremity wounds. PLAN: 1. No additional antimicrobials. 2. Maintain current cardiovascular regimen for afterload reduction and heart failure management. 3. Antibiotic prophylaxis in the future for any procedures or instrumentation. Yovany Durant M.D. DR: ELODIA JOB#: [id number] CC:
--- NOTE | 2020-03-14 07:05 | Discharge Summary ---
Discharge Summary Discharge Summary _ DATE OF ADMISSION: 02/28/2020 DATE OF DISCHARGE: 03/13/2020 DISCHARGED BY: Dr. Angel REASON FOR ADMISSION: 79 years old male, [facility] with past medical history of hypertension, hyperlipidemia, pacemaker, recent aortic valve endocarditis, presented due to generalized weakness and failure to thrive. Patient had recent with history of aortic valve endocarditis with MRSA bacteremia . He completed IV vancomycin on 02/28 for total of 6 weeks course. In the last week he developed fatigue ,poor appetite and failure to thrive , and subsequently was referred to emergency room . Patient was found to have leukocytosis with WBC 12.9, anemia with hemoglobin 7.3 . Chest x-ray revealed right basilar moderate pleural effusion and likely parenchymal consolidation. Urinalysis revealed evidence of urinary tract infection. Troponin was negative . EKG revealed sinus rhythm no acute ischemic changes Patient by himself denied fever ,chills, cough , shortness of breath. Patient subsequently admitted for further management . CONSULTANTS: de[facility] of education ID specialist Dr. Mccord surgery Dr. Mccarty psychiatrist [facility] COURSE: Patient admitted and started on IV antibiotics for management of UTI. EKG was stable. Troponin negative. Patient was initially kept on isolation for suspected COVID-19 infection . SARS-CoV-2 by PCR on 02/27 and 03/03 was not detected. Isolation was discontinued. Blood cultures were negative. Urine culture revealed Pseudomonas MDR. Echocardiogram revealed preserved ejection fraction 60% with mild left ventricular hypertrophy. Right ventricular systolic pressure of 33. No current indication for transesophageal echocardiogram, unless the patient develops bacteremia or signs of hemodynamic compromise. No additional antibiotics recommended by ID specialist, since blood culture remain negative. Patient was made aware that he will need antibiotic prophylaxis in the future for any procedure or instrumentation. Afterload reduction for heart failure and aortic insufficiency was added. Pacemaker to be interrogated as outpatient. DVT and GI prophylaxis provided. Hemoglobin and hematocrit were closely monitored with goal to keep hemoglobin above 7. Patient undergone 1 unit of packed red blood cell transfusion. Anemia work-up revealed evidence of iron and folate deficiency. Stool for occult blood was negative. Patient started on folic acid replacement. Renal parameters and electrolytes were closely monitored ; electrolytes/ magnesium replaced. Patient presented with multiply pressure injury, including full-thickness stage IV sacral pressure ulcer. Wound care provided per surgeon recommendation . Continue wound care by home health nursing. Psychiatrist optimized psychiatric medication regimen . Patient clinically stabilized and was ready for discharge home with home health services. FINAL DIAGNOSES: SIRS Recent aortic valve endocarditis, status post therapy UTI with Pseudomonas Possible PNA Acute anemia, requiring blood transfusion Suspected COVID-19 infection -ruled out Hypertensive heart disease Chronic diastolic congestive heart failure Mild aortic insufficiency Permanent pacemaker Decubitus skin ulcer, present on admission Dementia DISCHARGE MEDICATIONS: See Medication Reconciliation list. DISCHARGE INSTRUCTIONS: Patient was discharged home with home health services. Follow up with primary care provider in one week. I have been assigned to dictate discharge summary for this account. I was not involved in the patient's management. Susan Sanches NP March 14, 2020 07:05
--- NOTE | 2020-03-14 10:25 | NUR ---
*-* INSURANCE *-* UPDATED CLINICALS AND REVIEWS HAVE BEEN FAXD TO: [facility] NCM:[place] P: [phone] F: [phone] (FAX CLINICALS HERE AND TO [facility] [phone]) & [facility] NCM:[place] P: [phone] F: [phone] DC Orders: [id number] Addendum: 03/14/20 at 1027 by JENN SMITH CM DISCHARGE SUMMARY HAS BEEN FAXED WELL
== END 2020-03-13 15:25 | disposition home or self-care (01) | DRG 193 ==
LOC: EDBD 14:04 → EMR 14:49 → EDBEDREQ 16:18 → 4E 17:10 → EDBEDREQ 18:59 → 4E 03-10 02:58
PROC: 30233N1 Transfusion of Nonautologous Red Blood Cells into Peripheral Vein, Percutaneous Approach (ICD-10-PCS; principal; 2020-02-29)
DX: J18.9 Pneumonia, unspecified organism (principal); L89.154 Pressure ulcer of sacral region, stage 4; I33.0 Acute and subacute infective endocarditis; E44.0 Moderate protein-calorie malnutrition; N39.0 Urinary tract infection, site not specified; I50.32 Chronic diastolic (congestive) heart failure; F03.91 Unspecified dementia, unspecified severity, with behavioral disturbance; B95.62 Methicillin resistant Staphylococcus aureus infection as the cause of diseases classified elsewhere; D64.9 Anemia, unspecified; B96.5 Pseudomonas (aeruginosa) (mallei) (pseudomallei) as the cause of diseases classified elsewhere; I11.0 Hypertensive heart disease with heart failure; Z95.0 Presence of cardiac pacemaker; R62.7 Adult failure to thrive; L89.610 Pressure ulcer of right heel, unstageable; L89.520 Pressure ulcer of left ankle, unstageable; L89.626 Pressure-induced deep tissue damage of left heel; E78.5 Hyperlipidemia, unspecified; I35.1 Nonrheumatic aortic (valve) insufficiency; I73.9 Peripheral vascular disease, unspecified; E87.6 Hypokalemia
CPT/HCPCS: 36415; 71045; 80048; 80053; 80202; 81003; 82270; 82550; 82553; 82607; 82746; 83540; 83550; 83605; 83735; 83880; 84484; 85007; 85025; 86850; 86900; 86901; 86920; 87040; 87081; 87086; 87181; 87635; 93005; 93306; 96361; 96365; 96368; 99285; J7030; J8499